=== PATIENT | female | born 1965 | race Two or more races ===

== ENCOUNTER 2020-01-09 16:26 | Outpatient (REF) | payer OTHER, SELFPAY ==
--- NOTE | 2020-01-09 | MM_ITS ---
EXAMINATION: MM SCREENING DIGITAL BREAST TOMOSYNTHESIS, BILATERAL CLINICAL INFORMATION: Screening. Asymptomatic. The lifetime risk of breast cancer based on the Tyrer-Cuzick Model is 5.6%. COMPARISON: Mammography: 07/27/2018 and multiple previous mammograms dated back to 06/04/2007. TECHNIQUE: Digital breast tomosynthesis is performed in both the craniocaudal and mediolateral oblique views along with computer-aided detection (CAD). Synthesized 2D images are generated from the tomosynthesis. FINDINGS: The breasts are heterogeneously dense, which may obscure small masses (ACR BI-RADS breast composition Category c). RIGHT BREAST: No suspicious masses, calcifications or other abnormalities are seen. Compared to last study, no significant interval change is noted. LEFT BREAST: Multiple regional punctate and milk of calcium calcifications in the anterior central breast are again noted; the calcifications appear to be decreased in number compared to multiple previous studies. There is a more focal grouping of milk of calcium calcifications in the upper outer quadrant anterior third; calcifications with similar morphology are seen on the multiple previous mammograms. Focal nodular asymmetry in the medial left breast, 4 cm from nipple is stable since previous studies. MM/MM tomosynthesis screening BI IMPRESSION: No mammographic evidence of malignancy. ASSESSMENT: BI-RADS 2: Benign. RECOMMENDATION: Routine annual mammography screening. This patient's information was entered into a reminder system with a target due date for their next mammogram.
== END 2020-01-09 16:27 | disposition home or self-care (01) ==
LOC: HO.MAMMO 16:26
PROVIDERS: PCP Internal Medicine; Visit Provider Internal Medicine
DX: Z12.31 Encounter for screening mammogram for malignant neoplasm of breast (principal)
CPT/HCPCS: 77063; 77067

== ENCOUNTER → 2020-01-15 20:23 | Outpatient (REF) | payer OTHER, SELFPAY | LOC: HO.SL 20:23 | PROVIDERS: Visit Provider Internal Medicine | DX: G47.33 Obstructive sleep apnea (adult) (pediatric) (principal) | CPT/HCPCS: 95810 ==

== ENCOUNTER 2020-01-18 17:49 | Emergency (ER) | payer OTHER, SELFPAY ==
[2020-01-18 18:01] VITALS: BP 114/63; PULSE 71; RESP 16; TEMP 36.9; O2SAT 99; BMI 25.6
[2020-01-18 19:04] VITALS: BP 120/63; PULSE 73; RESP 16; TEMP 37.1; O2SAT 100
--- NOTE | 2020-01-18 19:41 | ED_ITS ---
HPI - Skin/Abscess/Foreign Bdy General Chief complaint: Skin/Abscess/Foreign Body Stated complaint: christiana needle stick Time Seen by Provider: 01/18/20 19:40 Source: patient Mode of arrival: ambulatory Limitations: no limitations History of Present Illness HPI narrative: 54-year-old female below noted past medical history presenting with complaint of states she was cleaning rug at her [employer] and there was a christiana nail which kicked her in her right index finger. States there was slight blood from the nail puncture site but no pain or discomfort. There was no deeper Puncture. States she has not had a tetanus vaccine since she was a child and is the main reason she is here today. Onset (ago): minute(s) Tetanus up to date: no Context: none Associated symptoms: denies other symptoms Related Data Allergies Allergy/AdvReac Type Severity Reaction Status Date / Time No Known Allergies Allergy Unverified 11/24/19 15:32 [No Known Allergies*] Review of Systems Review of Systems: Constitutional: No Weight loss, No Fever, No Chills, No Night Sweats, No Fatigue, No Malaise ENT/Mouth: No Hearing loss, No Ear Pain, No Nasal Congestion Eyes: No Eye Pain, No Swelling, No Redness, No Foreign Body, No Discharge, No Vision Changes Cardiovascular: No Chest Pain, No SOB, No Dyspnea on Exertion, No Orthopnea, No Edema, No Palpitations Respiratory: No Cough, No Sputum, No Wheezing, No Smoke Exposure, No Dyspnea Musculoskeletal: No joint pain, No Myalgias, No Joint Swelling Skin: No Skin Lesions, No rash Neuro: No Weakness, No Numbness, No Paresthesias, No Loss of Consciousness, No Dizziness, No Headache Psych: No Anxiety/Panic Heme/Lymph: No Bruising, No Bleeding,No Lymphadenopathy Endocrine: No Polyuria, No Polydipsia, No Temperature Intolerance Yes all other systems are reviewed and are negative COUNT INCLUDES THE [facility] Past Medical History Attestation statement: The following information was validated with the patient. Social History Social History Smoking Status: Never smoker Use of substances other than those prescribed or required for medical reasons: No Advance Directives: No Advance Directives Information Provided: No Physical Exam Vital Signs: Vital Signs: Last Vital Signs Temp 98.7 F 01/18/20 19:04 Pulse 73 01/18/20 19:04 Resp 16 01/18/20 19:04 BP 120/63 11/11/20 19:04 Pulse Ox 100 01/18/20 19:04 Body Mass Index 25.6 Reviewed Const: General: cooperative and healthy appearing; No acute distress or intoxicated appearing Nutritional Appearance: average body habitus Orientation/consciousness: patient oriented x3 HENMT: Head: Yes normal to inspection Ears: hearing grossly normal bilaterally Chest: Chest palpation & inspection: normal inspection of the chest Resp: Effort & Inspection: normal respiratory effort Cardio: Jugular venous distension: no JVD Skin: General skin exam: no rashes or lesions noted Neuro: General: patient oriented x3 Extrem: Other: Right index finger at the fat pad there is a less than 0.5 mm area where there is some dry blood no tender palpation induration or erythema. General: Yes normal to inspection Course Course Course Narrative: Given tetanus vaccination Discharge Plan Discharge Clinical Impression: Puncture wound Patient Disposition: Home, Self-Care Instructions: Puncture Wound (ED) Referrals: Radha Sánchez MD [Primary Care Provider] - 2 weeks
--- NOTE | 2020-01-18 20:11 | PC.NURSE ---
small wound cleaned and baindaid given
== END 2020-01-18 20:12 | disposition home or self-care (01) ==
PROVIDERS: Emergency Provider Emergency Medicine Emergency Medical Services; PCP Internal Medicine
DX: S61.230A Puncture wound without foreign body of right index finger without damage to nail, initial encounter (principal); S60.410A Abrasion of right index finger, initial encounter; M79.644 Pain in right finger(s); Y28.9XXA Contact with unspecified sharp object, undetermined intent, initial encounter; Y93.9 Activity, unspecified; Y92.22 Religious institution as the place of occurrence of the external cause; Z23 Encounter for immunization
CPT/HCPCS: 90471; 90715; 99284

== ENCOUNTER 2020-01-30 11:18 | Outpatient (REF) | payer OTHER, SELFPAY | END 2020-01-30 11:19 | disposition home or self-care (01) | LOC: HO.LAB 11:18 | PROVIDERS: PCP Internal Medicine; Visit Provider Internal Medicine | DX: Z20.828 Contact with and (suspected) exposure to other viral communicable diseases (principal) | CPT/HCPCS: C9803; U0003 ==

== ENCOUNTER 2020-05-29 16:30 | Outpatient (REF) | payer OTHER, SELFPAY ==
--- NOTE | ~2020-05-29 | XR_ITS ---
EXAMINATION: PELVIS AND BILATERAL HIP X-RAY. LUMBAR SPINE X-RAY. CLINICAL INFORMATION: Pain COMPARISON: Lumbar spine x-ray October 2014 TECHNIQUE: 5 views of the lumbar spine including bilateral oblique views. One view of the pelvis and 2 views of each hip. FINDINGS: Lumbar spine: There is curvature of the lumbar sacral spine to the right. Bone alignment is otherwise normal. No fracture or dislocation is seen distally spaces are normal. There is lower lumbar spine facet arthritis. Pelvis and bilateral hips: Bone alignment is normal. No fracture or dislocation is seen. The hip joints are normal. The sacroiliac joints appear normal. There are postsurgical changes from left pelvic hernia repair with mesh. XR/XR hip BI w PEL1V IMPRESSION: Lumbar spine: Curvature of the lumbar sacral spine to the right and lower lumbar spine facet arthritis. Unremarkable pelvis and bilateral hips.
--- NOTE | ~2020-05-29 | XR_ITS ---
EXAMINATION: PELVIS AND BILATERAL HIP X-RAY. LUMBAR SPINE X-RAY. CLINICAL INFORMATION: Pain COMPARISON: Lumbar spine x-ray October 2014 TECHNIQUE: 5 views of the lumbar spine including bilateral oblique views. One view of the pelvis and 2 views of each hip. FINDINGS: Lumbar spine: There is curvature of the lumbar sacral spine to the right. Bone alignment is otherwise normal. No fracture or dislocation is seen distally spaces are normal. There is lower lumbar spine facet arthritis. Pelvis and bilateral hips: Bone alignment is normal. No fracture or dislocation is seen. The hip joints are normal. The sacroiliac joints appear normal. There are postsurgical changes from left pelvic hernia repair with mesh. XR/XR lumbar spine 4V min IMPRESSION: Lumbar spine: Curvature of the lumbar sacral spine to the right and lower lumbar spine facet arthritis. Unremarkable pelvis and bilateral hips.
== END 2020-05-29 16:31 | disposition home or self-care (01) ==
LOC: HO.XRAY 16:30
PROVIDERS: PCP Internal Medicine; Visit Provider Internal Medicine
DX: M25.551 Pain in right hip (principal); M25.552 Pain in left hip; M54.5 Low back pain
CPT/HCPCS: 72110; 73521

== ENCOUNTER 2020-10-08 15:05 | Outpatient (REF) | payer OTHER, SELFPAY ==
--- NOTE | ~2020-10-08 | XR_ITS ---
EXAMINATION: XR SACROILIAC JOINTS CLINICAL INFORMATION: Lumbago. COMPARISON: None TECHNIQUE: 3 views of the sacroiliac joints FINDINGS: There is normal symmetry of bilateral SI joints without sclerosis or lytic process. The disc heights are normal. Visualized bones are grossly unremarkable no visible acute fracture or dislocation seen. The hip joint space is maintained normal. There is a lower anterior abdominal wall hernia with mesh in place XR/XR sacroiliac joint 1-2V IMPRESSION: Unremarkable SI joint exam.
== END 2020-10-08 15:06 | disposition home or self-care (01) ==
LOC: HO.XRAY 15:05
PROVIDERS: PCP Internal Medicine; Visit Provider Physical Medicine & Rehabilitation
DX: M54.5 Low back pain (principal)
CPT/HCPCS: 72200

== ENCOUNTER 2020-12-04 12:19 | Outpatient (REF) | payer OTHER, SELFPAY ==
[2020-12-05 09:45] LABS: BV Int Neg Control Negative (Negative); BV Int Pos Control Positive (Positive)
== END 2020-12-04 12:20 | disposition home or self-care (01) ==
LOC: HO.LAB 12:19
PROVIDERS: Visit Provider Advanced Practice Midwife
DX: N89.8 Other specified noninflammatory disorders of vagina (principal); R30.0 Dysuria; N95.2 Postmenopausal atrophic vaginitis; N76.0 Acute vaginitis
CPT/HCPCS: 87480; 87510; 87660; 99202

== ENCOUNTER 2021-02-13 15:35 | Outpatient (REF) | payer OTHER, SELFPAY ==
--- NOTE | ~2021-02-13 | MM_ITS ---
EXAMINATION: MM SCREENING DIGITAL BREAST TOMOSYNTHESIS, BILATERAL CLINICAL INFORMATION: Screening. Asymptomatic. The lifetime risk of breast cancer based on the Tyrer-Cuzick Model is 4.7%. COMPARISON: Mammography: January 09, 2020 and studies dating back to March 18, 2011 TECHNIQUE: Digital breast tomosynthesis is performed in both the craniocaudal and mediolateral oblique views along with computer-aided detection (CAD). Synthesized 2D images are generated from the tomosynthesis. FINDINGS: The breasts are heterogeneously dense, which may obscure small masses (ACR BI-RADS breast composition Category c). There are no significant masses, abnormal calcifications, or other abnormalities. MM/MM tomosynthesis screening BI IMPRESSION: There are no significant changes from prior study. ASSESSMENT: BI-RADS 1: Negative RECOMMENDATION: Routine annual mammography screening. This patient's information was entered into a reminder system with a target due date for their next mammogram.
== END 2021-02-13 15:36 | disposition home or self-care (01) ==
LOC: HO.MAMMO 15:35
PROVIDERS: PCP Internal Medicine; Visit Provider Internal Medicine
DX: Z12.31 Encounter for screening mammogram for malignant neoplasm of breast (principal)
CPT/HCPCS: 77063; 77067

== ENCOUNTER 2021-06-10 15:00 | Outpatient (RCR) | payer OTHER, SELFPAY | END 2021-08-16 09:06 | disposition home or self-care (01) | LOC: HO.PT 15:00 | PROVIDERS: PCP Internal Medicine; Visit Provider Internal Medicine | DX: M54.50 Low back pain, unspecified (principal) | CPT/HCPCS: 97110; 97162; 97530 ==

== ENCOUNTER 2021-06-26 11:13 | Outpatient (REF) | payer OTHER, SELFPAY ==
--- NOTE | ~2021-06-26 | XR_ITS ---
EXAMINATION: XR LUMBOSACRAL SPINE WITH OBLIQUES CLINICAL INFORMATION: Pain. COMPARISON: 05/29/2020 TECHNIQUE: AP, both oblique, and lateral views of the lumbar spine. Lateral view of the lumbosacral junction. FINDINGS: Once again, scoliosis convex left apex at D12. In the lumbar spine, once again, there is loss of disc height. Vertebral heights are fairly well preserved. There is no listhesis or compression injury. The oblique imaging is showing no convincing evidence for spondylolysis. Findings suggest some early degenerative changes at L5-S1 in the posterior elements. XR/XR lumbar spine 4V min IMPRESSION: Once again, some mild degenerative changes and scoliosis noted. No acute finding. No listhesis or compression injury. No significant change from previous.
== END 2021-06-26 11:14 | disposition home or self-care (01) ==
LOC: HO.XRAY 11:13
PROVIDERS: PCP Internal Medicine; Visit Provider Internal Medicine
DX: M54.50 Low back pain, unspecified (principal)
CPT/HCPCS: 72110

== ENCOUNTER → 2021-08-13 11:27 | Outpatient (BNVA) | payer OTHER, SELFPAY | PROVIDERS: PCP Internal Medicine | DX: R39.15 Urgency of urination (principal) | CPT/HCPCS: 99202 ==

== ENCOUNTER 2022-02-27 10:59 | Outpatient (REF) | payer OTHER, SELFPAY | END 2022-02-27 11:00 | disposition home or self-care (01) | LOC: HO.MAMMO 10:59 | PROVIDERS: PCP Nurse Practitioner Family; Visit Provider Internal Medicine | DX: Z12.31 Encounter for screening mammogram for malignant neoplasm of breast (principal) | CPT/HCPCS: 77063; 77067 ==

== ENCOUNTER → 2022-03-06 09:43 | Outpatient (BNVA) | payer OTHER, SELFPAY | PROVIDERS: PCP Internal Medicine; Visit Provider Urology | DX: N32.81 Overactive bladder (principal); R39.15 Urgency of urination | CPT/HCPCS: 51798; 99212 ==

== ENCOUNTER 2022-06-16 10:52 | Outpatient (REF) | payer OTHER, SELFPAY ==
--- NOTE | ~2022-06-16 | US_ITS ---
EXAMINATION: US RETROPERITONEAL LIMITED (RENAL ONLY) CLINICAL INFORMATION: Frequency of micturition. COMPARISON: None available. TECHNIQUE: Real-time imaging of the kidneys. FINDINGS: RIGHT KIDNEY: 9.0 x 3.7 x 4.7 cm (SAG x AP x TRV). The kidney is normal in size, contour, and echogenicity. Renal cortical thickness is normal. No calculi or focal parenchymal lesions. No hydronephrosis. LEFT KIDNEY: 10.1 x 5.0 x 5.1 cm (SAG x AP x TRV). The kidney is normal in size, contour, and echogenicity. Renal cortical thickness is normal. No renal calculi. Likely benign benign renal cysts one with mural calcification measuring up to 0.8 cm, no follow-up imaging recommended. Prominence of the renal pelvis favored to reflect peripelvic renal cysts versus pelviectasis. US/US renal BI IMPRESSION: Prominence of the left renal pelvis favored to reflect a peripelvic renal cysts although the alternative would be renal pelviectasis. CT urogram could be confirmatory for differentiation if warranted.
== END 2022-06-16 10:53 | disposition home or self-care (01) ==
LOC: HO.US 10:52
PROVIDERS: PCP Internal Medicine; Visit Provider Urology
DX: R35.0 Frequency of micturition (principal)
CPT/HCPCS: 76775

== ENCOUNTER → 2022-07-02 10:42 | Outpatient (BNVA) | payer OTHER, SELFPAY | PROVIDERS: PCP Internal Medicine; Visit Provider Urology | DX: N32.81 Overactive bladder (principal); M54.50 Low back pain, unspecified | CPT/HCPCS: 99212 ==

== ENCOUNTER 2023-01-01 13:52 | Outpatient (AMB) | payer OTHER, SELFPAY ==
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
[2023-01-01 13:59] VITALS: BP 117/70; PULSE 80; BMI 23.9
== END 2023-01-01 15:05 | disposition home or self-care (01) ==
PROVIDERS: PCP Internal Medicine; Visit Provider Nurse Practitioner
DX: K21.9 Gastro-esophageal reflux disease without esophagitis (principal); R14.0 Abdominal distension (gaseous)
CPT/HCPCS: 99203

== ENCOUNTER 2023-01-01 13:52 | Outpatient (REF) | payer OTHER, SELFPAY ==
[2023-01-03 13:22] LABS: H Pylori Breath Test Positive (Negative)
== END 2023-01-01 13:53 | disposition home or self-care (01) ==
LOC: HO.LNP 13:52
PROVIDERS: PCP Internal Medicine; Visit Provider Nurse Practitioner
DX: K21.9 Gastro-esophageal reflux disease without esophagitis (principal); R14.0 Abdominal distension (gaseous)
CPT/HCPCS: 83013; 99202

== ENCOUNTER 2023-01-09 13:32 | Outpatient (REF) | payer OTHER, SELFPAY ==
[2023-01-09 13:51] LABS: MANUAL DIFF FLAG NO
[2023-01-09 14:03] LABS: Basophils Absolute Auto 0.1 X10*3/uL (0.0-0.2); Basophils Percent Auto 0.5 % (0-2); Eosinophils Absolute Auto 0.2 X10*3/uL (0.0-0.4); Eosinophils Percent Auto 1.9 % (0-4); Hematocrit 38.1 % (37.0-47.0); Hemoglobin 12.7 g/dl (12.0-16.0); Imm Gran Abs Auto 0.04 X10*3/uL (0.00-0.03); Imm Gran Pct Auto 0.4 % (0.0-0.4); Lymphocytes Absolute Auto 2.1 X10*3/uL (1.2-4.9); Lymphocytes Percent Auto 22.4 % (20-40); Mean Corpuscular HGB Conc 33.3 g/dl (31.0-35.0); Mean Corpuscular Hemoglobin 27.6 pg (27.0-33.0); Mean Corpuscular Volume 82.8 fL (80.0-98.0); Mean Platelet Volume 12.4 fL (9.4-12.3); Monocytes Absolute Auto 0.5 X10*3/uL (0.1-1.2); Monocytes Percent Auto 5.9 % (2-11); Neutrophils Absolute Auto 6.3 x10*3/uL (2.0-8.3); Neutrophils Percent Auto 68.9 % (45-73); Platelet Count 262 X10*3/uL (160-400); Red Cell Distribution Width 13.6 % (11.0-16.0); White Blood Count 9.2 X10*3/uL (4.8-10.8)
[2023-01-09 14:48] LABS: Alanine Aminotransferase 18 U/L (0-31); Albumin Level 3.7 g/dL (3.5-5.0); Alkaline Phosphatase 87 U/L (39-117); Anion Gap 10 (12-20); Aspartate Amino Transferase 36 U/L (5-31); Bilirubin Total 0.3 mg/dL (0.0-1.0); Blood Urea Nitrogen 10 mg/dL (9-16); Calcium 8.9 mg/dL (8.4-10.2); Carbon Dioxide 27 mmol/L (22-29); Chloride 107 mmol/L (96-108); Estimated Glomerular Filt Rate > 60; Glucose Random 137 mg/dL (60-115); Potassium 3.9 mmol/L (3.3-5.1); Sodium 140 mmol/L (135-145); Total Protein 6.5 g/dL (6.5-8.0)
[2023-01-09 14:56] LABS: TSH reflex Free T4 1.84 uIU/mL (0.32-4.0)
== END 2023-01-09 13:33 | disposition home or self-care (01) ==
LOC: HO.LAB 13:32
PROVIDERS: PCP Internal Medicine; Visit Provider Nurse Practitioner
DX: K21.9 Gastro-esophageal reflux disease without esophagitis (principal); R14.0 Abdominal distension (gaseous)
CPT/HCPCS: 36415; 80053; 84443; 85025

== ENCOUNTER 2023-01-10 20:02 | Emergency (ER) | payer OTHER, SELFPAY ==
[2023-01-10 20:24] VITALS: BP 139/76; PULSE 71; RESP 18; TEMP 36.9; O2SAT 99; BMI 24.0
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
[2023-01-10 22:10] VITALS: BP 132/73; PULSE 60; RESP 18; TEMP 36.6; O2SAT 98
--- NOTE | 2023-01-10 22:10 | MHC.EDTECH ---
Patient changed into hospital attire,vitals completed.Unable to give urine sample at this time, patient instructed to ring pierre when she is able to go. Call pierre within reach
[2023-01-10 22:15] LABS: MANUAL DIFF FLAG NO
[2023-01-10 22:17] LABS: Basophils Percent Auto 0.6 % (0-2); Eosinophils Absolute Auto 0.1 X10*3/uL (0.0-0.4); Eosinophils Percent Auto 0.7 % (0-4); Hematocrit 39.2 % (37.0-47.0); Hemoglobin 12.7 g/dl (12.0-16.0); Imm Gran Abs Auto 0.02 X10*3/uL (0.00-0.03); Imm Gran Pct Auto 0.3 % (0.0-0.4); Lymphocytes Absolute Auto 1.4 X10*3/uL (1.2-4.9); Mean Corpuscular HGB Conc 32.4 g/dl (31.0-35.0); Mean Corpuscular Hemoglobin 26.1 pg (27.0-33.0); Mean Corpuscular Volume 80.7 fL (80.0-98.0); Mean Platelet Volume 11.8 fL (9.4-12.3); Monocytes Absolute Auto 0.6 X10*3/uL (0.1-1.2); Monocytes Percent Auto 8.3 % (2-11); Neutrophils Absolute Auto 5.1 x10*3/uL (2.0-8.3); Neutrophils Percent Auto 70.1 % (45-73); Platelet Count 265 X10*3/uL (160-400); Red Blood Count 4.86 X10*6/uL (4.20-5.50); Red Cell Distribution Width 13.3 % (11.0-16.0); White Blood Count 7.2 X10*3/uL (4.8-10.8)
[2023-01-10 22:30] LABS: Alanine Aminotransferase 18 U/L (0-31); Albumin Level 3.8 g/dL (3.5-5.0); Alkaline Phosphatase 88 U/L (39-117); Anion Gap 13 (12-20); Aspartate Amino Transferase 35 U/L (5-31); Bilirubin Total 0.3 mg/dL (0.0-1.0); Blood Urea Nitrogen 11 mg/dL (9-16); Calcium 8.9 mg/dL (8.4-10.2); Carbon Dioxide 27 mmol/L (22-29); Chloride 106 mmol/L (96-108); Creatinine Clr Calc Pharmacy 50.9; Estimated Glomerular Filt Rate > 60; Glucose Random 102 mg/dL (60-115); Lipase 12 U/L (8-78); Potassium 3.5 mmol/L (3.3-5.1); Sodium 142 mmol/L (135-145); Total Protein 6.6 g/dL (6.5-8.0)
[2023-01-10 22:42] LABS: Appearance Urine Clear; Color Urine Yellow; Glucose Urine UA Negative (Negative); Leukocyte Esterase Urine Small (1+) (Negative); Nitrite Urine Negative (Negative); PH 5.5 (5.0-9.0); UMIC TRIGGER UACC YES; Urine Blood Negative (Negative); Urine Ketones 15 mg/dL (Negative); Urine Protein Negative (Neg-Trace)
[2023-01-10] MEDS: Ondansetron ODT 4 MG TAB.RAPDIS TRANSLINGU (22:43)
[2023-01-10] MEDS: Dicyclomine HCl 10 MG CAPSULE 20 MG PO (22:43)
[2023-01-10] MEDS: Butalb/Acetamin/Caff 50/325/40 TABLET 1 TAB PO (22:43)
[2023-01-10 22:49] LABS: Bacteria Urine None Seen (None Seen); Hyaline Casts Urine 0-2 /LPF (0-2); RBC Urine 0-2 /HPF (0-2); Squamous Epithelial Cell Urine 0-2 /HPF (0-2); UACC Culture Trigger YES; WBC Urine 0-5 /HPF (0-5)
[2023-01-11 00:28] VITALS: BP 107/57; PULSE 54; RESP 18; TEMP 36.5; O2SAT 97
== END 2023-01-11 00:40 | disposition home or self-care (01) ==
PROVIDERS: Emergency Provider Internal Medicine; PCP Internal Medicine
DX: K21.9 Gastro-esophageal reflux disease without esophagitis (principal); R10.9 Unspecified abdominal pain; R51.9 Headache, unspecified; G31.84 Mild cognitive impairment of uncertain or unknown etiology; Z87.820 Personal history of traumatic brain injury; Z97.0 Presence of artificial eye
CPT/HCPCS: 36415; 80053; 81001; 83690; 85025; 87086; 99283; 99284

== ENCOUNTER 2023-01-16 13:48 | Outpatient (AMB) | payer OTHER, SELFPAY ==
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
[2023-01-16 13:55] VITALS: BP 126/114; PULSE 66; BMI 23.4
== END 2023-01-16 14:49 | disposition home or self-care (01) ==
PROVIDERS: PCP Internal Medicine; Visit Provider Nurse Practitioner
DX: K29.80 Duodenitis without bleeding (principal); B96.81 Helicobacter pylori [H. pylori] as the cause of diseases classified elsewhere; K21.9 Gastro-esophageal reflux disease without esophagitis; B37.81 Candidal esophagitis; R41.3 Other amnesia
CPT/HCPCS: 99214

== ENCOUNTER → 2023-01-16 13:48 | Outpatient (BNVA) | payer OTHER, SELFPAY | PROVIDERS: PCP Internal Medicine; Visit Provider Nurse Practitioner | DX: K29.80 Duodenitis without bleeding (principal); B96.81 Helicobacter pylori [H. pylori] as the cause of diseases classified elsewhere; K21.9 Gastro-esophageal reflux disease without esophagitis; R14.0 Abdominal distension (gaseous); G31.84 Mild cognitive impairment of uncertain or unknown etiology; B37.81 Candidal esophagitis; B37.0 Candidal stomatitis; Z87.820 Personal history of traumatic brain injury | CPT/HCPCS: 99212 ==

== ENCOUNTER 2023-02-02 08:59 | Outpatient (REF) | payer OTHER, SELFPAY ==
--- NOTE | ~2023-02-02 | US_ITS ---
EXAMINATION: US ABDOMEN COMPLETE CLINICAL INFORMATION: Gastroesophageal reflux disease without esophagitis. COMPARISON: Renal ultrasound 06/16/2022. TECHNIQUE: Real-time imaging of the abdominal viscera. Limited visualization due to bowel gas. FINDINGS: PANCREAS: Limited visualization of pancreatic tail and head. Imaged portion of pancreatic body is unremarkable. ABDOMINAL AORTA: Nonaneurysmal. INFERIOR VENA CAVA: Visualized portions are normal. LIVER: Unremarkable. GALLBLADDER: No gallstones. No gallbladder wall thickening. COMMON BILE DUCT: Normal in caliber measuring 0.4 cm in diameter. RIGHT KIDNEY: No hydronephrosis. No renal calculi. Limited visualization. The kidney measures 9.2 cm in maximum dimension. LEFT KIDNEY: Mild left hydronephrosis. Left renal upper pole 1.3 x 1.2 x 1.4 cm cyst with benign features for which there is no indication for follow-up imaging, with adjacent 0.7 x 0.4 x 0.5 cm echogenic focus characteristic of a calcification. Ultrasound of 06/16/2022 demonstrated a 0.8 cm upper pole cyst with adjacent 0.5 cm calcification. Limited visualization. The kidney measures 10.1 cm in maximum dimension. SPLEEN: Normal. The spleen measures 7.1 cm in maximum dimension. FREE FLUID: None. US/US abdomen complete IMPRESSION: 1. Mild left hydronephrosis. 2. Left renal upper pole 1.3 x 1.2 x 1.4 cm cyst with benign features for which there is no indication for follow-up imaging, with adjacent 0.7 x 0.4 x 0.5 cm echogenic focus characteristic of a calcification. Ultrasound of 06/16/2022 demonstrated a 0.8 cm upper pole cyst with adjacent 0.5 cm calcification.
== END 2023-02-02 09:00 | disposition home or self-care (01) ==
LOC: HO.US 08:59
PROVIDERS: PCP Internal Medicine; Visit Provider Nurse Practitioner
DX: K21.9 Gastro-esophageal reflux disease without esophagitis (principal); R14.0 Abdominal distension (gaseous)
CPT/HCPCS: 76700

== ENCOUNTER 2023-02-04 11:03 | Outpatient (AMB) | payer OTHER, SELFPAY ==
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
[2023-02-04 11:27] VITALS: BP 101/59; PULSE 68; BMI 22.9
== END 2023-02-04 12:39 | disposition home or self-care (01) ==
PROVIDERS: PCP Internal Medicine; Visit Provider Nurse Practitioner
DX: K21.9 Gastro-esophageal reflux disease without esophagitis (principal); R14.0 Abdominal distension (gaseous); K29.80 Duodenitis without bleeding; B96.81 Helicobacter pylori [H. pylori] as the cause of diseases classified elsewhere; G31.84 Mild cognitive impairment of uncertain or unknown etiology; R30.0 Dysuria
CPT/HCPCS: 99213

== ENCOUNTER → 2023-02-04 11:03 | Outpatient (BNVA) | payer OTHER, SELFPAY | PROVIDERS: PCP Internal Medicine; Visit Provider Nurse Practitioner | DX: K21.9 Gastro-esophageal reflux disease without esophagitis (principal); B96.81 Helicobacter pylori [H. pylori] as the cause of diseases classified elsewhere; K29.80 Duodenitis without bleeding; G31.84 Mild cognitive impairment of uncertain or unknown etiology; R14.0 Abdominal distension (gaseous); R30.0 Dysuria | CPT/HCPCS: 99212 ==

== ENCOUNTER 2023-02-20 12:07 | Outpatient (AMB) | payer OTHER, SELFPAY ==
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
[2023-02-20 12:38] VITALS: BP 122/54; PULSE 74; BMI 24.4
== END 2023-02-20 13:52 | disposition home or self-care (01) ==
PROVIDERS: PCP Internal Medicine; Visit Provider Nurse Practitioner
DX: K29.80 Duodenitis without bleeding (principal); B96.81 Helicobacter pylori [H. pylori] as the cause of diseases classified elsewhere; R30.0 Dysuria; K21.9 Gastro-esophageal reflux disease without esophagitis; R14.0 Abdominal distension (gaseous)
CPT/HCPCS: 99213

== ENCOUNTER → 2023-02-20 12:07 | Outpatient (BNVA) | payer OTHER, SELFPAY | PROVIDERS: PCP Internal Medicine; Visit Provider Nurse Practitioner | DX: K29.80 Duodenitis without bleeding (principal); K21.9 Gastro-esophageal reflux disease without esophagitis; R30.0 Dysuria; R14.0 Abdominal distension (gaseous); B96.81 Helicobacter pylori [H. pylori] as the cause of diseases classified elsewhere | CPT/HCPCS: 99212 ==

== ENCOUNTER 2023-02-26 14:32 | Outpatient (REF) | payer OTHER, SELFPAY ==
[2023-02-27 13:23] LABS: H Pylori Breath Test Negative (Negative)
== END 2023-02-26 14:33 | disposition home or self-care (01) ==
LOC: HO.LNP 14:32
PROVIDERS: Visit Provider Nurse Practitioner
DX: Z11.2 Encounter for screening for other bacterial diseases (principal); B96.81 Helicobacter pylori [H. pylori] as the cause of diseases classified elsewhere; K29.80 Duodenitis without bleeding
CPT/HCPCS: 83013

== ENCOUNTER 2023-03-05 11:23 | Outpatient (REF) | payer OTHER, SELFPAY ==
--- NOTE | ~2023-03-05 | MM_ITS ---
EXAMINATION: MM SCREENING DIGITAL BREAST TOMOSYNTHESIS, BILATERAL CLINICAL INFORMATION: Screening. Asymptomatic. COMPARISON: Mammography: This study is compared with prior exams dating back to 2019. TECHNIQUE: Digital breast tomosynthesis is performed in both the craniocaudal and mediolateral oblique views along with computer-aided detection (CAD). Synthesized 2D images are generated from the tomosynthesis. FINDINGS: The breasts are heterogeneously dense, which may obscure small masses (ACR BI-RADS breast composition Category c). There are no significant masses, abnormal calcifications, or other abnormalities. There are bilateral, benign calcifications. MM/MM tomosynthesis screening BI IMPRESSION: No mammographic evidence of malignancy. ASSESSMENT: BI-RADS BI-RADS 2 - Benign Findings RECOMMENDATION: Routine annual mammography screening. 1 year F/U This examination should not preclude the clinical evaluation of a suspicious palpable abnormality. This patient's information was entered into a reminder system with a target due date for their next mammogram.
== END 2023-03-05 11:24 | disposition home or self-care (01) ==
LOC: HO.MAMMO 11:23
PROVIDERS: PCP Internal Medicine; Visit Provider Nurse Practitioner Family
DX: Z12.31 Encounter for screening mammogram for malignant neoplasm of breast (principal)
CPT/HCPCS: 77063; 77067

== ENCOUNTER → 2023-03-05 11:30 | Outpatient (BNV) | payer OTHER, SELFPAY | PROVIDERS: PCP Internal Medicine; Visit Provider Radiology Diagnostic Radiology | DX: Z12.31 Encounter for screening mammogram for malignant neoplasm of breast (principal) | CPT/HCPCS: 77063; 77067 ==

== ENCOUNTER 2023-03-30 10:54 | Outpatient (REF) | payer OTHER, SELFPAY | END 2023-03-30 10:55 | disposition home or self-care (01) | LOC: HO.LAB 10:54 | PROVIDERS: Visit Provider Urology | DX: N39.0 Urinary tract infection, site not specified (principal); N32.81 Overactive bladder; R32 Unspecified urinary incontinence | CPT/HCPCS: 51798; 81003; 87086; 99212 ==

== ENCOUNTER 2023-03-30 10:54 | Outpatient (AMB) | payer OTHER, SELFPAY ==
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
== END 2023-03-30 11:43 | disposition home or self-care (01) ==
PROVIDERS: PCP Internal Medicine; Visit Provider Urology
DX: N32.81 Overactive bladder (principal); R32 Unspecified urinary incontinence
CPT/HCPCS: 99214

== ENCOUNTER 2023-04-15 15:29 | Emergency (ER) | payer OTHER, SELFPAY ==
[2023-04-15 16:41] VITALS: BP 126/55; PULSE 61; RESP 18; TEMP 36; O2SAT 100; BMI 23.8
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
== END 2023-04-15 16:50 | disposition home or self-care (01) ==
PROVIDERS: Emergency Provider Emergency Medicine; PCP Internal Medicine
DX: S60.410A Abrasion of right index finger, initial encounter (principal); W20.8XXA Other cause of strike by thrown, projected or falling object, initial encounter; Y93.89 Activity, other specified; Y92.59 Other trade areas as the place of occurrence of the external cause; Y99.0 Civilian activity done for income or pay
CPT/HCPCS: 99282; 99283

== ENCOUNTER → 2023-07-07 14:55 | Outpatient (BNVA) | payer OTHER, SELFPAY | PROVIDERS: PCP Internal Medicine; Visit Provider Nurse Practitioner ==

== ENCOUNTER 2023-07-09 07:39 | Day surgery (SDC) | payer OTHER, SELFPAY ==
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
[2023-07-09 09:17] VITALS: BMI 24.6
[2023-07-09 09:20] VITALS: BP 138/66; PULSE 65; RESP 16; TEMP 36.3; O2SAT 98
[2023-07-09] MEDS: Lactated Ringers 1,000 ML 80 ML IVCONT (09:30)
--- NOTE | 2023-07-09 09:50 | P.OP_ITS ---
Operative Note Operative Note Date of Service: 07/09/23 Narrative: Procedure: Colonoscopy Indication: Screening Endoscopist: Ayleen Rudd MD Anesthesia Provider: Amy Raya CRNA Anesthesia type: MAC Instrument: Olympus [id number]-H190L Consent: Indication, risks vs benefits, and alternatives were discussed with the patient who gave written informed consent to proceed. EKG, pulse, pulse oximetry and blood pressure were monitored throughout the procedure. Please see anesthesia flowsheet. Procedure: The patient was brought to the procedure room and placed in the left lateral decubitus position. IV medications were administered by the anesthesia provider in attendance. A digital rectal exam was performed which was normal. A distal attachment cap was affixed to the tip of the scope and the colonoscope was then inserted through the anus and advanced through the colon to the cecum at 75 cm,and terminal ileum. Ileocecal valve and appendiceal orifice were identified. Mucosa was carefully examined under high definition white light as the instrument was slowly withdrawn in a retrograde panoramic fashion. Retroflexion was performed in rectum. The procedure was not difficult. There were no immediate obvious complications. The quality of the prep was BBPS: 2+2+2 = adequate Withdrawal time 11 minutes. Limitations: No limitations. Findings: Mucosa: Normal to cecum and terminal ileum. Protruding lesions: * Medium internal hemorrhoids without stigmata of recent bleeding. Impression: 1. Normal colon and terminal ileum mucosa 2. Internal hemorrhoids Recommendations: - repeat colonoscopy for asymptomatic colorectal cancer screening recommended in 10 years
[2023-07-09 10:21] VITALS: BP 90/50; PULSE 73; RESP 16; TEMP 36.1; O2SAT 99
[2023-07-09 10:36] VITALS: BP 99/65; PULSE 61; RESP 18; TEMP 36.1; O2SAT 98
== END 2023-07-09 11:15 | disposition home or self-care (01) ==
PROVIDERS: PCP Internal Medicine; Visit Provider Internal Medicine
PROC: 0DJD8ZZ Inspection of Lower Intestinal Tract, Via Natural or Artificial Opening Endoscopic (ICD-10-PCS; CPT 45378; principal; 2023-07-09 10:50)
DX: Z12.11 Encounter for screening for malignant neoplasm of colon (principal); K64.8 Other hemorrhoids; G40.909 Epilepsy, unspecified, not intractable, without status epilepticus; Z87.820 Personal history of traumatic brain injury
CPT/HCPCS: G0121; J2704

== ENCOUNTER → 2023-07-09 07:39 | Outpatient (BNV) | payer OTHER, SELFPAY | PROVIDERS: PCP Internal Medicine; Visit Provider Internal Medicine | DX: Z12.11 Encounter for screening for malignant neoplasm of colon (principal); K64.8 Other hemorrhoids | CPT/HCPCS: G0121 ==

== ENCOUNTER → 2023-07-23 15:52 | Outpatient (BNVA) | payer OTHER, SELFPAY | PROVIDERS: PCP Internal Medicine; Visit Provider Nurse Practitioner | DX: K21.9 Gastro-esophageal reflux disease without esophagitis (principal); G31.84 Mild cognitive impairment of uncertain or unknown etiology; S06.9X9A Unspecified intracranial injury with loss of consciousness of unspecified duration, initial encounter; R10.13 Epigastric pain | CPT/HCPCS: 99212 ==

== ENCOUNTER 2023-07-30 13:57 | Outpatient (REF) | payer OTHER, SELFPAY ==
--- NOTE | ~2023-07-30 | XR_ITS ---
EXAMINATION: BILATERAL KNEE SERIES CLINICAL INFORMATION: Chronic pain of both knees. Fall. COMPARISON: None. TECHNIQUE: Four views of each knee. FINDINGS: Right knee: The bones, joints and soft tissues are normal without effusion. Left knee: Bones, joints and soft tissues are normal without effusion. XR/XR knee RT 4V IMPRESSION: Normal x-ray series of the right and left knees.
--- NOTE | ~2023-07-30 | XR_ITS ---
EXAMINATION: BILATERAL KNEE SERIES CLINICAL INFORMATION: Chronic pain of both knees. Fall. COMPARISON: None. TECHNIQUE: Four views of each knee. FINDINGS: Right knee: The bones, joints and soft tissues are normal without effusion. Left knee: Bones, joints and soft tissues are normal without effusion. XR/XR knee LT 4V IMPRESSION: Normal x-ray series of the right and left knees.
== END 2023-07-30 13:58 | disposition home or self-care (01) ==
LOC: HO.HHCX 13:57
PROVIDERS: Visit Provider Internal Medicine
DX: M25.561 Pain in right knee (principal); M25.562 Pain in left knee; G89.29 Other chronic pain
CPT/HCPCS: 73564

== ENCOUNTER 2023-07-31 14:02 | Outpatient (REF) | payer OTHER, SELFPAY ==
[2023-07-31 16:10] LABS: MANUAL DIFF FLAG NO
[2023-07-31 16:31] LABS: Basophils Percent Auto 0.6 % (0-2); Eosinophils Absolute Auto 0.2 X10*3/uL (0.0-0.4); Eosinophils Percent Auto 3.2 % (0-4); Hematocrit 38.9 % (37.0-47.0); Hemoglobin 12.9 g/dl (12.0-16.0); Imm Gran Abs Auto 0.01 X10*3/uL (0.00-0.03); Imm Gran Pct Auto 0.1 % (0.0-0.4); Lymphocytes Percent Auto 28.9 % (20-40); Mean Corpuscular HGB Conc 33.2 g/dl (31.0-35.0); Mean Corpuscular Hemoglobin 27.2 pg (27.0-33.0); Mean Corpuscular Volume 81.9 fL (80.0-98.0); Mean Platelet Volume 12.9 fL (9.4-12.3); Monocytes Absolute Auto 0.5 X10*3/uL (0.1-1.2); Neutrophils Absolute Auto 4.1 x10*3/uL (2.0-8.3); Neutrophils Percent Auto 60.2 % (45-73); Platelet Count 244 X10*3/uL (160-400); Red Blood Count 4.75 X10*6/uL (4.20-5.50); Red Cell Distribution Width 13.2 % (11.0-16.0); White Blood Count 6.8 X10*3/uL (4.8-10.8)
[2023-07-31 16:44] LABS: Alanine Aminotransferase 14 U/L (0-31); Alkaline Phosphatase 88 U/L (39-117); Anion Gap 11 (12-20); Aspartate Amino Transferase 24 U/L (5-31); Bilirubin Direct 0.2 mg/dL (0.0-0.5); Bilirubin Total 0.5 mg/dL (0.0-1.0); Blood Urea Nitrogen 10 mg/dL (9-16); Calcium 9.2 mg/dL (8.4-10.2); Carbon Dioxide 26 mmol/L (22-29); Chloride 109 mmol/L (96-108); Cholesterol 193 mg/dL (<200); Estimated Glomerular Filt Rate > 60; Glucose Random 86 mg/dL (60-115); HDL Cholesterol 43 mg/dL (>40); LDL Cholesterol Calculated 135 mg/dL (<100); Potassium 3.9 mmol/L (3.3-5.1); Sodium 142 mmol/L (135-145); Triglycerides 79 mg/dL (<150)
[2023-07-31 16:45] LABS: Estimated Average Glucose 108 mg/dL; Hemoglobin A1c % 5.4 % (<6.0)
[2023-08-01 05:00] LABS: ~HepC Num1 0.24 S/CO (0.00-0.79); ~Hepatitis C Antibody Nonreactive (Nonreactive)
== END 2023-07-31 14:03 | disposition home or self-care (01) ==
LOC: HO.HHCL 14:02
PROVIDERS: Visit Provider Internal Medicine
DX: Z00.00 Encounter for general adult medical examination without abnormal findings (principal); Z13.6 Encounter for screening for cardiovascular disorders
CPT/HCPCS: 36415; 80048; 80061; 80076; 82306; 83036; 85025; 86803

== ENCOUNTER 2023-09-04 14:37 | Outpatient (AMB) | payer OTHER, SELFPAY ==
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
[2023-09-04 14:42] VITALS: BP 116/64; PULSE 62; O2SAT 98; BMI 24.3
== END 2023-09-04 15:18 | disposition home or self-care (01) ==
PROVIDERS: PCP Internal Medicine; Visit Provider Nurse Practitioner
DX: B37.9 Candidiasis, unspecified (principal)
CPT/HCPCS: 99213

== ENCOUNTER → 2023-09-04 14:37 | Outpatient (BNVA) | payer OTHER, SELFPAY | PROVIDERS: PCP Internal Medicine; Visit Provider Nurse Practitioner | DX: B37.9 Candidiasis, unspecified (principal) | CPT/HCPCS: 99212 ==

== ENCOUNTER 2023-09-15 10:45 | Outpatient (AMB) | payer OTHER, SELFPAY ==
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
[2023-09-15 10:52] VITALS: BP 127/61; PULSE 62; O2SAT 97; BMI 23.8
== END 2023-09-15 11:18 | disposition home or self-care (01) ==
PROVIDERS: PCP Internal Medicine; Referring Provider Nurse Practitioner; Visit Provider Nurse Practitioner Family
DX: M25.561 Pain in right knee (principal); M25.562 Pain in left knee; Z74.09 Other reduced mobility; M47.816 Spondylosis without myelopathy or radiculopathy, lumbar region; R29.6 Repeated falls
CPT/HCPCS: 99204

== ENCOUNTER → 2023-09-15 10:45 | Outpatient (BNVA) | payer OTHER, SELFPAY | PROVIDERS: PCP Internal Medicine; Referring Provider Nurse Practitioner; Visit Provider Nurse Practitioner Family | DX: M25.561 Pain in right knee (principal); M25.562 Pain in left knee; M47.816 Spondylosis without myelopathy or radiculopathy, lumbar region; R29.6 Repeated falls; Z74.09 Other reduced mobility | CPT/HCPCS: 99202 ==

== ENCOUNTER 2023-10-12 14:10 | Outpatient (AMB) | payer OTHER, SELFPAY ==
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
== END 2023-10-12 15:23 | disposition home or self-care (01) ==
PROVIDERS: PCP Internal Medicine; Visit Provider Urology
DX: N32.81 Overactive bladder (principal); R32 Unspecified urinary incontinence; N39.0 Urinary tract infection, site not specified
CPT/HCPCS: 99214

== ENCOUNTER → 2023-10-12 14:10 | Outpatient (BNVA) | payer OTHER, SELFPAY | PROVIDERS: PCP Internal Medicine; Visit Provider Urology | DX: N39.41 Urge incontinence (principal); R35.1 Nocturia; Z79.899 Other long term (current) drug therapy | CPT/HCPCS: 51798; 81003; 99212 ==

== ENCOUNTER 2023-10-21 16:13 | Outpatient (REF) | payer OTHER, SELFPAY ==
[2023-10-23 17:53] LABS: HPV mRNA E6/E7 Not Detected (Not Detected)
== END 2023-10-21 16:14 | disposition home or self-care (01) ==
LOC: HO.HHCLNP 16:13
PROVIDERS: Visit Provider Internal Medicine
DX: Z12.4 Encounter for screening for malignant neoplasm of cervix (principal)
CPT/HCPCS: 36415; 87624; 88175

== ENCOUNTER 2023-11-24 11:00 | Outpatient (RCR) | payer OTHER, SELFPAY ==
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
--- NOTE | 2023-11-24 12:57 | MHC.PT.DC ---
[facility] [place] Office [place] Office [place] Office [address] Henri Mcginnis [address] [facility] [phone] F: [phone] F: [phone] F: [phone] F: [phone] Physical Therapy Discharge Report Diagnosis: B knee pain Date of Surgery: Date of Evaluation: 10/20/23 Date of Discharge: 11/24/23 Treatments to Date: 6 Cancellations to Date: No Shows to Date: Discharge Status: Achieved Goals Improved Function Independent with HEP Discharge Summary: Alicia has been an active participant in her therapy with good home program compliance. We are in agreement with DC today as she has met all of her therapeutic goals, is managed of her initial symptoms, and she is independent with her home program for self management. Electronically signed by: Please sign and return to therapist. Thank you for your referral.
== END 2023-11-24 11:54 | disposition home or self-care (01) ==
LOC: HO.PT 11:00
PROVIDERS: PCP Internal Medicine; Visit Provider Nurse Practitioner Family
DX: M25.561 Pain in right knee (principal); M25.562 Pain in left knee; Z74.09 Other reduced mobility
CPT/HCPCS: 97110; 97112; 97161

== ENCOUNTER 2023-12-03 12:24 | Outpatient (AMB) | payer OTHER, SELFPAY ==
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
[2023-12-03 12:38] VITALS: BP 90/53; BMI 24.2
== END 2023-12-03 13:54 | disposition home or self-care (01) ==
PROVIDERS: PCP Internal Medicine; Visit Provider Nurse Practitioner
DX: B37.9 Candidiasis, unspecified (principal); R14.0 Abdominal distension (gaseous); K21.9 Gastro-esophageal reflux disease without esophagitis
CPT/HCPCS: 99213

== ENCOUNTER → 2023-12-03 12:24 | Outpatient (BNVA) | payer OTHER, SELFPAY | PROVIDERS: PCP Internal Medicine; Visit Provider Nurse Practitioner | DX: K21.9 Gastro-esophageal reflux disease without esophagitis (principal); R14.0 Abdominal distension (gaseous); B37.9 Candidiasis, unspecified | CPT/HCPCS: 99212 ==

== ENCOUNTER 2023-12-07 14:29 | Outpatient (REF) | payer OTHER, SELFPAY ==
[2023-12-07 16:38] LABS: MANUAL DIFF FLAG NO
[2023-12-07 16:56] LABS: Basophils Absolute Auto 0.1 X10*3/uL (0.0-0.2); Basophils Percent Auto 0.5 % (0-2); Eosinophils Absolute Auto 0.3 X10*3/uL (0.0-0.4); Eosinophils Percent Auto 3.2 % (0-4); Hematocrit 38.2 % (37.0-47.0); Hemoglobin 12.6 g/dl (12.0-16.0); Imm Gran Abs Auto 0.02 X10*3/uL (0.00-0.03); Imm Gran Pct Auto 0.2 % (0.0-0.4); Lymphocytes Absolute Auto 2.1 X10*3/uL (1.2-4.9); Lymphocytes Percent Auto 21.9 % (20-40); Mean Corpuscular Volume 81.8 fL (80.0-98.0); Mean Platelet Volume 13.2 fL (9.4-12.3); Monocytes Absolute Auto 0.6 X10*3/uL (0.1-1.2); Monocytes Percent Auto 6.5 % (2-11); Neutrophils Absolute Auto 6.5 x10*3/uL (2.0-8.3); Neutrophils Percent Auto 67.7 % (45-73); Platelet Count 226 X10*3/uL (160-400); Red Blood Count 4.67 X10*6/uL (4.20-5.50); Red Cell Distribution Width 13.4 % (11.0-16.0); White Blood Count 9.6 X10*3/uL (4.8-10.8)
== END 2023-12-07 14:30 | disposition home or self-care (01) ==
LOC: HO.HHCL 14:29
PROVIDERS: Visit Provider Student in an Organized Health Care Education/Training Program
DX: R19.5 Other fecal abnormalities (principal)
CPT/HCPCS: 36415; 85025

== ENCOUNTER 2024-01-28 07:56 | Day surgery (SDC) | payer OTHER, SELFPAY ==
[2024-01-26 09:34] VITALS: BMI 24.1
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
[2024-01-28 08:19] VITALS: BMI 24.0
[2024-01-28 08:36] VITALS: BP 113/65; PULSE 62; RESP 16; TEMP 36.4; O2SAT 99
[2024-01-28] MEDS: Lactated Ringers 1,000 ML 100 ML IVCONT (08:49)
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
--- NOTE | 2024-01-28 10:23 | P.OP_ITS ---
Operative Note Operative Note Date of Service: 01/28/24 Narrative: Procedure: Esophagogastroduodenoscopy Endoscopist: Ayleen Rudd MD Indication: Abd pain, melena Anesthesia Provider: Amy Raya CRNA Anesthesia Type: MAC ?? EGD Procedure:?? The procedure, indications, preparation and potential complications were re viewed with the patient, who indicated understanding and gave written informed consent to proceed. A physical exam was performed. The endoscope was introduced through the mouth, and advanced to the second part of duodenum. The mucosa was carefully examined on slow withdrawal of the endoscope. The patient tolerated the procedure well. There were no immediate complications.? ? EGD Findings:? * Esophagus:? The Z line was at 33 cm. There were small erosions and edema at the GE junction. Cold forceps biopsies were taken for histology. * Stomach:? Normal mucosa was noted in the stomach. Retroflexion was performed in the cardia. Random gastric biopsies were taken to rule out H Pylori infection. There was a small raised 3mm nodule along the greater curvature 4-5 cm proximal to pylorus. ? PEG scar. Cold forceps biopsies were taken for histology. * Duodenum:? Mild erythema and congesiton noted in duodenal bulb. The remaning mucosa was normal to the extent examined. Cold forceps biopsies were taken from duodenal bulb and second portion of the duodenum to rule out celiac sprue. ? EGD Impressions:? * Grade A esophagitis * Gastric nodule (biopsy) * Duodenitis (biopsy) ?? Recommendations:?? * Follow biopsy results. Our office will call or send a letter with results within 7-10 days. * Continue PPI therapy. * Avoid NSAIDs. Above has been reviewed with the patient.
[2024-01-28 10:28] VITALS: BP 85/44; PULSE 68; RESP 16; TEMP 36.9; O2SAT 99
[2024-01-28 10:43] VITALS: BP 108/68; PULSE 71; RESP 16; TEMP 36.6; O2SAT 99
== END 2024-01-28 11:13 | disposition home or self-care (01) ==
PROVIDERS: PCP Internal Medicine; Visit Provider Internal Medicine
PROC: 0DJ08ZZ Inspection of Upper Intestinal Tract, Via Natural or Artificial Opening Endoscopic (ICD-10-PCS; CPT 43235; principal; 2024-01-28 10:20)
DX: R10.9 Unspecified abdominal pain (principal); K92.1 Melena; B37.0 Candidal stomatitis; K20.80 Other esophagitis without bleeding; K29.80 Duodenitis without bleeding; D13.1 Benign neoplasm of stomach; D57.3 Sickle-cell trait; G40.909 Epilepsy, unspecified, not intractable, without status epilepticus; Z87.820 Personal history of traumatic brain injury; Z97.0 Presence of artificial eye; E55.9 Vitamin D deficiency, unspecified; R41.3 Other amnesia; Z79.899 Other long term (current) drug therapy; Z88.8 Allergy status to other drugs, medicaments and biological substances; Z98.890 Other specified postprocedural states; Z87.891 Personal history of nicotine dependence
CPT/HCPCS: 43239; 88305; 88313; 88342; J1100; J1596; J2003; J2704

== ENCOUNTER → 2024-01-28 07:56 | Outpatient (BNV) | payer OTHER, SELFPAY | PROVIDERS: PCP Internal Medicine; Visit Provider Internal Medicine | DX: K92.1 Melena (principal); K20.90 Esophagitis, unspecified without bleeding; K29.80 Duodenitis without bleeding; D13.1 Benign neoplasm of stomach | CPT/HCPCS: 43239 ==

== ENCOUNTER 2024-03-18 11:04 | Outpatient (REF) | payer OTHER, SELFPAY | END 2024-03-18 11:05 | disposition home or self-care (01) | LOC: HO.MAMMO 11:04 | PROVIDERS: PCP Internal Medicine; Visit Provider Internal Medicine | DX: Z12.31 Encounter for screening mammogram for malignant neoplasm of breast (principal) | CPT/HCPCS: 77063; 77067 ==

== ENCOUNTER → 2024-03-18 11:15 | Outpatient (BNV) | payer OTHER, SELFPAY | PROVIDERS: PCP Internal Medicine; Visit Provider Internal Medicine | DX: Z12.31 Encounter for screening mammogram for malignant neoplasm of breast (principal) | CPT/HCPCS: 77063; 77067 ==

== ENCOUNTER 2024-04-14 10:17 | Outpatient (AMB) | payer OTHER, SELFPAY ==
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
== END 2024-04-14 12:19 | disposition home or self-care (01) ==
LOC: HO.HUSH 10:17
PROVIDERS: PCP Internal Medicine; Visit Provider Urology
DX: N32.81 Overactive bladder (principal); R32 Unspecified urinary incontinence; N39.0 Urinary tract infection, site not specified
CPT/HCPCS: 98013

== ENCOUNTER → 2024-04-14 10:17 | Outpatient (BNVA) | payer OTHER, SELFPAY | PROVIDERS: PCP Internal Medicine; Visit Provider Urology | DX: N32.81 Overactive bladder (principal); R32 Unspecified urinary incontinence; N39.0 Urinary tract infection, site not specified | CPT/HCPCS: 99212 ==

== ENCOUNTER 2024-04-15 08:43 | Outpatient (REF) | payer OTHER, SELFPAY ==
--- OUTSIDE RECORDS SUMMARY | 2024-04-15 11:32 | XMS_ITS | Encounter Summary ---
Author Organization [employer] Address [address] [facility] [address] [place] [address] Care Team Providers Care Entry Level Chemist Name Role Phone Radha Sánchez MD Primary Care Provide r Reason for Visit * Reason Onset Date Comments Appointment 04/21/2022 Encounter Details Date Type Department Care Team ([facility] st Contact Info) Description 04/21/2022 Telephone [facility] MEDICINE [address] [place] [address] Radha Sánchez MD [address] [place], [place] [phone] Appointment Social History Tobacco Use Types Packs/Day Years Used Date Smoking Tobacco: Former Cigarettes Passive Smoke Exposure: Past Alcohol Use Standard Drinks/Week Comments Never 0 (1 standard drink = 0.6 oz pur e alcohol) Comments Unknown Sex and Gender Information Value Date Recorded Sex Assigned at Female 01/06/2022 10:14 AM EDT Legal Sex Female 10:14 AM EDT Gender Identity Female 01/06/2022 10:14 AM EDT Sexual Orientation Choose not to disclose 2021 10:14 AM EDT COVID-19 Exposure Response Date Recorded In the last 10 days, have yo u been in contact with someone who was confirmed or suspected to have Coronavirus/COVID-19? No / Unsure 04/07/2022 4:17 PM EST documented as of this encounter Miscellaneous Notes * Telephone Encounter - Stefani Del Rio - 04/21/2022 1:07 PM EST Tc from pt returning call to schedule an appt for a follow up with a team provider as PCP is on [facility]. Please contact pt at [phone] documented in this encounter Plan of Treatment Not on file documented as of this encounter Visit Diagnoses Not on filedocumented in this encounter Care Teams Entry Level Chemist Relationship Specialty Start Date End Date Radha Sánchez MD [address] [place] [id number] PCP - General Family Medicine 11/18/17 documented as of this encounter
--- OUTSIDE RECORDS SUMMARY | 2024-04-15 11:33 | XMS_ITS | Encounter Summary ---
Author Organization [employer] Address [address] [place] [address] Care Team Providers Care Kindergartners Helper Name Role Phone Radha Sánchez MD Primary Care Provide r Encounter Details Date Type Department Care Team ([facility] st Contact Info) Description 03/18/2024 Orders Only [facility] [place] MEDICINE [address] [place] [address] Radha Sánchez MD [address] [place], [place] [phone] Social History Tobacco Use Types Packs/Day Years Used Date Smoking Tobacco: Former Cigarettes Passive Smoke Exposure: Past Smokeless Tobacco: Never Alcohol Use Standard Drinks/Week Comments Never 0 (1 standard drink = 0.6 oz pur e alcohol) Alcohol Answer Date Recorded Frequency of Alcohol Consumption Not on file 07/30/2023 Average Number of Drinks Not on file 024 Frequency of Binge Drinking Not on file 07/08 Score 0 07/30/2023 Depression Answer Date Recorded Patient Health Questionnaire-9 Score 0 07/30/2023 Patient Health Questionnaire-9 Score 0 07/30/2023 Last PHQ-9: Questionnaire Data Not on file 0 07/30/2023 Housing Stability Answer Date Recorded What is your housing situation today? I have diane hidalgo 07/30/[address] you li ve. Do you have problems with any of the following? None of the above 07/30/2023 Food Insecurity Answer Date Recorded Within the past 12 months, y ou worried that your food would run out before you got money to buy more: Never True 07/30/2023 Within the past 12 months,th e food you bought just didn't last and you didn't have enough money to get more: Never True Transportation Answer Date Recorded In the past 12 months, has l ack of transportation kept you from medical appts, meetings, work or from getting things needed for daily living? No 07/30/2023 Utilities Answer Date Recorded In the past 12 months, has t he electric, gas, oil or water company threatened to shut off services in your home? No 07/30/2023 Depression Answer Date Recorded Patient Health Questionnaire-2 Score 0 07/30/2023 Internet Access Answer Date Recorded Internet Access Q1 Yes 11/06/2023 Internet Access Q2 Not on file 11/06/2023 Comments Unknown Sex and Gender Information Value Date Recorded Sex Assigned at Female 01/06/2022 10:14 AM EDT Legal Sex Female 10:14 AM EDT Gender Identity Female 01/06/2022 10:14 AM EDT Sexual Orientation Choose not to disclose 2021 10:14 AM EDT documented as of this encounter Plan of Treatment Not on file documented as of this encounter Procedures Procedure Name Priority Date/Time Associated Diagnosis Comments BI MAMMOGRAM SCREENING TOMOSYNTHESIS BILATERAL Routine 03/18/2024 11:15 AM EST documented in this encounter Results * BI Mammogram Screening Tomosynthesis Bilateral (03/18/2024 11:15 AM EST) Anatomical Region Laterality Modality Breast Bilateral Mammography 03/18/2024 11:1 5 AM EST Narrative 03/25/2024 4:09 PM EST ? [facility] ? [address] ?[place] [address] ? Mammography Report ? Signed ? Patient: Chago,Alicia ?MR#: [id number] ?? 3 ? : 1965 ?Acct:[id number] ? Age/Sex: 58 / F ?ADM Date: 01/10/25 ? Loc: HO.MAMMO ? Attending Dr: Radha Frias MD ? Ordering Physician: Radha Sánchez MD ?Results: ?? 1Negative ? Date of Service: 03/18/24 ?Follow Up: 1 Year From Orig ?? inal Mammogram ? Procedure(s): MM tomosynthesis screening BI ?? Accession Number(s): [id number] ? cc: Radha Sánchez MD ? EXAMINATION: ?? MM SCREENING DIGITAL BREAST TOMOSYNTHESIS, BILATERAL ? CLINICAL INFORMATION: ? Screening. Asymptomatic. ? COMPARISON: ?? Mammography: Comparison is made with available priors ? TECHNIQUE: ?? Digital breast mammography with tomosynthesis is performed in both the ?? craniocaudal and mediolateral oblique views along with computer-aided ?? detection (CAD). ? FINDINGS: ?? The breasts are heterogeneously dense, which may obscure small masses ?? (ACR BI-RADS breast composition Category c). ? There are no significant masses, abnormal calcifications, or other ?? abnormalities. ? MM/MM tomosynthesis screening BI ?? IMPRESSION: ?? No mammographic evidence of malignancy. ? ASSESSMENT: ? BI-RADS BI-RADS 1 - Negative ? RECOMMENDATION: ?? Routine annual mammography screening. ? 1 year F/U ? This examination should not preclude the clinical evaluation of a ?? suspicious palpable abnormality. ? This patient's information was entered into a reminder system with a ?? target due date for their next mammogram. ? Electronically signed by: ??Rachel Ram DO ??03/25/2024 04:06 PM EST ?? RP ? Dictated By: ?Rachel Ram DO ? Signed By: ?<Electronically signed by Rachel Ram, DO in OV> ? 03/25/24 1606 ? DD/ 1115 ? TD/TT: 03/18/24 1144 ? Ophthalmic Pathologist: ? Procedure Note Mcter, Image - [facility] [address] [place] [address] Mammography Report Signed Patient: Violeta Anders#: [id number] 3 : 1965Acct:[id number] Age/Sex: 58 / FADM Date: 03/18/24 Loc: HO.MAMMO Attending Dr: Radha Frias MD Ordering Physician: Radha Sánchez MDResults: 1Negative Date of Service: 03/18/24Follow Up: 1 Year From Orig inal Mammogram Procedure(s): MM tomosynthesis screening BI Accession Number(s): [id number] cc: Radha Sánchez MD EXAMINATION: MM SCREENING DIGITAL BREAST TOMOSYNTHESIS, BILATERAL CLINICAL INFORMATION: Screening. Asymptomatic. COMPARISON: Mammography: Comparison is made with available priors TECHNIQUE: Digital breast mammography with tomosynthesis is performed in both the craniocaudal and mediolateral oblique views along with computer-aided detection (CAD). FINDINGS: The breasts are heterogeneously dense, which may obscure small masses (ACR BI-RADS breast composition Category c). There are no significant masses, abnormal calcifications, or other abnormalities. MM/MM tomosynthesis screening BI IMPRESSION: No mammographic evidence of malignancy. ASSESSMENT: BI-RADS BI-RADS 1 - Negative RECOMMENDATION: Routine annual mammography screening. 1 year F/U This examination should not preclude the clinical evaluation of a suspicious palpable abnormality. This patient's information was entered into a reminder system with a target due date for their next mammogram. Electronically signed by: Rachel Ram DO 03/25/2024 04:06 PM [facility] Dictated By: Rachel Ram DO Signed By: <Electronically signed by Rachel Ram DO in OV> 03/25/24 1606 DD/ 1115 TD/TT: 03/18/24 1144 Ophthalmic Pathologist: us Radha Frias MD IMG BI PROCEDURES Michelet kiara Result - Final documented in this encounter Visit Diagnoses Not on filedocumented in this encounter Additional Health Concerns Assessment Noted Time PHQ-9 Depression Total Score: 0 07/30/19 24 1:10 PM EDT documented as of this encounter Care Teams Kindergartners Helper Relationship Specialty Start Date End Date Radha Sánchez MD [address] [place] [address] PCP - General Family Medicine 11/18/17 documented as of this encounter
--- OUTSIDE RECORDS SUMMARY | 2024-04-15 11:33 | XMS_ITS | Encounter Summary ---
Author Organization [employer] Address [address] [place] [address] Care Team Providers Care Machine Stone Polisher Apprentice Name Role Phone Radha Sánchez MD Primary Care Provide r Reason for Visit * Reason Comments Med Refill Encounter Details Date Type Department Care Team ([facility] st Contact Info) Description 03/31/2024 Refill [facility] [address] [place] [address] Radha Sánchez MD [address] [place], [place] [phone] Dark stools Social History Tobacco Use Types Packs/Day Years [...] documented as of this encounter Visit Diagnoses Diagnosis Dark stools Nonspecific abnormal finding in stool contents documented in this encounter Additional Health Concerns Assessment Noted Time PHQ-9 Depression Total Score: 0 07/30/19 24 1:10 PM EDT documented as of this encounter Care Teams Machine Stone Polisher Apprentice Relationship Specialty Start Date End Date Radha Sánchez MD [address] [place] [address] PCP - General Family Medicine 11/18/17 documented as of this encounter
--- OUTSIDE RECORDS SUMMARY | 2024-04-15 11:33 | XMS_ITS | Encounter Summary ---
Author Organization [employer] Address [address] [facility] [address] [place] [address] Care Team Providers Care Child Care Team Lead Name Role Phone Radha Sánchez MD Primary Care Provide r Reason for Visit * Reason Comments Med Change Request Encounter Details Date Type Department Care Team ([facility] st Contact Info) Description 12/31/2023 Refill [facility] [address] [place] [address] Radha Bhatia MD [address] [place] [address] Dark stools Social History Tobacco Use Types [...] documented as of this encounter Care Teams Child Care Team Lead Relationship Specialty Start Date End Date Radha Sánchez MD [address] [place] [address] PCP - General Family Medicine 11/18/17 documented as of this encounter
--- OUTSIDE RECORDS SUMMARY | 2024-04-15 11:33 | XMS_ITS | Encounter Summary ---
Author Organization [employer] Address [address] [place] [address] Care Team Providers Care Leadership Program Internship Name Role Phone Radha Sánchez MD Primary Care Provide r Encounter Details Date Type Department Care Team ([facility] st Contact Info) Description 12/17/2022 Abstract [facility] MEDICINE [address] [place], [place] [phone] Radha Sánchez MD [address] [place], [place] [phone] Social History Tobacco Use Types Packs/Day Years Used Date Smoking Tobacco: Former Cigarettes Passive Smoke Exposure: Past Smokeless Tobacco: Never Alcohol Use Standard Drinks/Week Comments Never 0 (1 standard drink = 0.6 oz pur e alcohol) Housing Stability Answer Date Recorded What is your housing situation today? I have dianejalil hidalgo 12/13/[address] you li ve. Do you have problems with any of the following? None of the above 12/13/2022 Food Insecurity Answer Date Recorded Within the past 12 months, y ou worried that your food would run out before you got money to buy more: Never True 12/13/2022 Within the past 12 months,th e food you bought just didn't last and you didn't have enough money to get more: Never True 09/2022 Transportation Answer Date Recorded In the past 12 months, has l ack of transportation kept you from medical appts, meetings, work or from getting things needed for daily living? No 12/13/2022 Utilities Answer Date Recorded In the past 12 months, has t he electric, gas, oil or water company threatened to shut off services in your home? No 12/13/2022 Depression Answer Date Recorded Patient Health Questionnaire-2 Score 0 05/19/2022 Comments Unknown Sex and Gender Information Value [...] on filedocumented in this encounter Care Teams Leadership Program Internship Relationship Specialty Start Date End Date Radha Sánchez MD [address] [place] [address] PCP - General Family Medicine 11/18/17 documented as of this encounter
--- OUTSIDE RECORDS SUMMARY | 2024-04-15 11:33 | XMS_ITS | Clinical Summary ---
Author Organization [employer] Address [address] [facility] 7[address] [place] [address] Care Team Providers Care Special Education Case Manager Name Role Phone Radha Sánchez MD Primary Care Provide r Allergies Active Allergy Reactions Criticality Noted Date Comments Apple Flavoring Agent (Non-Screening) 10/21/2023 Diphenhydramine 11/26/2023 Dust Mite Extract 10/21/2023 Modified Tree Tyrosine Adsorbate Watermelon Flavoring Agent (Non-Screening) 10/21/2023 Medications acetaminophen (Tylenol) 325 MG tablet TAKE 2 TABLETS BY MOUTH EVERY 6 HOURS NEEDED 06/26/19 22 Active ciclopirox (Loprox) 0.77 % suspension Apply topically every 12 (twelve) hours. 07/25/19 21 Active Diclofenac Sodium 1 % gel APPLY 2 GRAMS TO THE AFFECTED AREA 2-3 TIMES DAILY TOPICALLY 06/27/19 22 Active estradiol (Estrace) 0.1 MG/GM vaginal cream insert (2G) daily for 2 weeks then (1G) daily for 2 weeks then (1G) weekly 06/21/19 21 Active loratadine (Claritin) 10 MG tablet Take 1 tablet by mouth at bed time. 07/28/19 19 Active Myrbetriq 25 MG 24 hr tablet Take 25 mg by mouth in the morning. 12/24/19 22 Active topiramate (Topamax) 25 MG tablet Take 25 mg by mouth if needed each day. 06/27/19 22 Active nortriptyline (Pamelor) 10 MG capsuleIndicat ions:Polymyalg ia (CMS/HCC) Take 1 capsule (10 mg) by mouth at bedtime. 30 capsule 11 05/20/19 23 Active hydrocortisone 2.5 % cream Apply pea sized amount to skin bid for 1 week 15 g 10/07/19 24 Active acetaminophen (Tylenol) 325 MG capsuleIndicat ions:Sore throat Take 2 capsules (650 mg) by mouth every 6 (six) hours if needed for mild pain. 120 capsule 1 11/06/19 24 Active cholecalcifero l (Vitamin D3) 25 MCG (1000 UT) tabletIndicati ons:Vitamin D deficiency TAKE 1 TABLET BY MOUTH EVERY DAY 90 tablet 1 01/08/20 24 Active famotidine (Pepcid) 20 MG tabletIndicati ons:Dark stools Take 1 tablet (20 mg) by mouth at bedtime. TAKE 1 TABLET (20 MG) BY MOUTH IF NEEDED AT BEDTIME FOR HEARTBURN 90 tablet 1 03/01/20 24 Active fluticasone (Flonase) 50 MCG/ACT nasal sprayIndicatio ns:Left otitis media with effusion SHAKE GENTLY. USE 1 TO 2 SPRAYS IN EACH NOSTRIL EACH MORNING. CLEAN TIP AFTER USE. 48 mL 03/14/19 25 Active omeprazole (PriLOSEC) [address] capsuleIndicat ions:Dark stools TAKE 1 CAPSULE BY MOUTH BEFORE BREAKFAST. DO NOT CRUSH OR CHEW. 90 capsule 03/31/19 25 Active omeprazole (PriLOSEC) [address] capsuleIndicat ions:Dark stools TOME 1 CAPSULA (40 MG) POR VIA ORAL ANTES DEL DESAYUNO DO NOT CRUSH OR CHEW 90 capsule 12/31/19 24 025 Discontinued Active Problems Problem Noted Date Diagnosed Date Dark stools 11/26/2023 Assessment & Plan (11/26/2023 7:51 PM EDT): 07/2023 CBC and chem wnl Benign abd exam ,discomfort over epigastrium reported as burning and chronic ,rectal exam today w normal color stools Hemooccult neg here today Dark stools Likely from peptobimol -has apt w GI -June for f up per pt next month and planned for EGD for chronic GERD/gastritis--tried calling several times w GI office but not able to reach-left voice mailfor a call back to try to get earlier apt-advised pt to call to make sure to see GI -start PPIs 30 min before breaskfast and famotidine HS prn only for burning epigastric pain just for now until see GI -alarm signs and symptoms discussed w pt -CBC order today to monitor hb -advised to avoid NSAIDS Epigastric pain 11/26/2023 Cervical cancer screening 10/21/2023 Assessment & Plan (10/21/2023 4:10 PM EDT): PAP smear and pelvic exam done patient will be contacted with results Acute tension headache 10/08/2023 Chronic nonintractable headache 10/08/2023 Assessment & Plan (10/08/2023 11:25 AM EDT): Maintain hydration I advise to avoid triggers like red wine, chocolate, cheese, strong perfumes C/w fioricept PRN Bug bite 10/07/2023 Assessment & Plan (10/07/2023 4:04 PM EDT): No evidence of super infection. Advise hydrocortisone cream, ice. Advise seek medical attention for pain, increase in size or redness, tracking or fever. She agrees with the plan. Decreased hearing of left ear 07/30/2023 Encounter for preventive health examination 07/08 Assessment & Plan (07/30/2023 1:50 PM EDT): See HPI Chronic pain of both knees 07/30/2023 Assessment & Plan (10/08/2023 11:26 AM EDT): Patient has not start yet PT, I advise not to miss her appointment Assessment & Plan (07/30/2023 1:50 PM EDT): Acetaminophen PRN XRAY ordered, she will be contacted with results Bilateral tinnitus 03/11/2023 Assessment & Plan (03/11/2023 12:16 PM EST): I will refer patient to ENT for further evaluation Colon cancer screening 03/11/2023 Acute otitis media 12/05/2022 Encounter for physical examination 07/28/2022 Assessment & Plan (07/28/2022 11:22 AM EDT): Please refer to HPI Multiple food allergies 07/28/2022 Gastroesophageal reflux disease without esophagi tis 07/28/2022 Assessment & Plan (10/08/2023 11:26 AM EDT): I advise patient to avoid NSAIDs, spicy and acid food, I advise to eat at the same time every day, I advise to elevate the head of the bed and take medications as prescribe Assessment & Plan (07/28/2022 11:23 AM EDT): I advise patient to avoid NSAIDs, spicy and acid food, I advise to eat at the same time every day, I advise to elevate the head of the bed and take medications as prescribe Chronic low back pain 05/19/2022 Heartburn 05/19/2022 Increased frequency of urination 05/19/2022 Polymyalgia 04/07/2022 Assessment & Plan (07/28/2022 11:22 AM EDT): Likely fibromyalgia Patient was educated about multidisciplinary approach for her condition, it was advise cardiovascular exercise, maintain hydration, treat anxiety/depression and take medications as directed Assessment & Plan (05/22/2022 2:21 PM EDT): Reviewed labs normal from 03/2022 Discussed nature of fibromyalgia Encouraged exercise as tolerated, sleeping well Start nortriptyline 10mg at night for sleep and pain Fatigue 04/07/2022 Vitamin D deficiency 03/16/2017 Seizure disorder 05/26/2016 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 Sickle cell trait 01/27/2012 Encounters Date Type Department Care Team Description 03/31/2024 Refill [facility] [address] [place] [phone] Radha Sánchez MD Dark stools 03/18/2024 Orders Only [facility] [address] [place] [phone] Radha Sánchez MD 03/12/2024 Refill [facility] [address] [place] [address] Radha Sánchez MD Left otitis media with effusion 03/01/2024 Refill [facility] [address] [place] [address] Radha Sánchez MD Dark stools 01/31/2024 Refill [facility] [address] [place] [address] Radha Bhatia MD Dark stools 01/28/2024 Orders Only GENERIC EXTERNAL DATA DEPARTMENT Provider, Generic External Data from Last 3 Months Immunizations Name Administration Dates Next Due Influenza Injectable Quadriv alant Preservative Free IIV4 MDCK 03/18/2021 Influenza injectable quadrivalent preservative f ree 11/18/2021,03/06/2020 Influenza, IIV3, injectable 01/19/1997 Influenza, seasonal, injectable, preservative fr ee 12/07/2023 RSV Bivalent 04/03/2023 TD (adult), 2 Lf tetanus tox oid, preservative free, adsorbed 09/06/2009 Tdap 01/18/2020 Zoster, Recombinant 05/07/2020,03/06/2020 Social History Tobacco Use Types Packs/Day Years Used Date Smoking Tobacco: Former Cigarettes Passive Smoke Exposure: Past Smokeless Tobacco: Never Tobacco Cessation:Counseling Given: Not Answered Alcohol Use Standard Drinks/Week Comments Never 0 [...] the past 12 months, has t he [employer], gas, oil or water company threatened to [...] not to disclose 2021 10:14 AM EDT Last Filed Vital Signs Vital Sign Reading Time Taken Comments Blood Pressure 124/68 11/26/2023 11:22 AM EDT Pulse 55 11/26/2023 11:22 AM EDT Temperature 36.2 ??C (97.1 ??F) 11/26/2023 11:22 AM E DT Respiratory Rate 20 11/26/2023 11:22 AM EDT Oxygen Saturation 99% 11/26/2023 11:22 AM EDT Inhaled Oxygen Concentration - - Weight 60.9 kg (134 lb 3.2 oz) 11/26/2023 11:22 AM EDT Height 157.5 cm (5' 2 ) 11/26/2023 11:22 AM EDT Body Mass Index 24.55 11/26/2023 11:22 AM EDT Plan of Treatment Health Maintenance Due Date Last Done Comments CT Colonography 1965 Colonoscopy 1965 Colorectal Cancer Screening 1965 FIT DNA/Cologuard 1965 FIT 1965 FOBT 1965 Sigmoidoscopy 1965 Pneumococcal Vaccine: 50+ Years (1 of 1 - PCV) 2013 COVID-19 Vaccine ( - 2023- season) 2023 Alcohol/Substance Use Screening 07/29/2024 07/30/2023 Depression Screening 07/29/2024 07/30/2023, 07/30/19 24 SDOH Screening 07/29/2024 07/30/2023 Tobacco Screening 11/25/2024 11/26/2023 Mammogram 03/18/2025 03/18/2024, 02/07, 02/27/2022, Additional history exists Cervical Cancer Screening 10/20/2028 HPV/Cotest 10/20/2028 10/21/2023 Pap Smear 10/20/2028 10/21/2023, 07/23/2020 DTaP/Tdap/Td Vaccines (2 - Td or Tdap) 01/17/2030 01/18/2020, 09/06/2009 HIV Screening Completed 11/01/2019 Zoster Vaccines Completed 05/07/2020, 03/06/2020 RSV Patients and Patients Aged 60 years or older Completed 04/03/2023 Hepatitis C Screening Completed 07/31/2023 Influenza Vaccine Completed 12/07/2023, , 03/18/2021, Additional history exists HIB Vaccines Aged Out No longer eligi ble based on patient's age to complete this topic HPV Vaccines Aged Out No longer eligi ble based on patient's age to complete this topic Hepatitis A Vaccines Aged Out No long er eligible based on patient's age to complete this topic Hepatitis B Vaccines Aged Out No long er eligible based on patient's age to complete this topic IPV Vaccines Aged Out No longer eligi ble based on patient's age to complete this topic Meningococcal Vaccine Aged Out No livier brad eligible based on patient's age to complete this topic RSV under 20 months Aged Out No longe r eligible based on patient's age to complete this topic Rotavirus Vaccines Aged Out No longer eligible based on patient's age to complete this topic Procedures Procedure Name Priority Date/Time Associated Diagnosis Comments BI MAMMOGRAM SCREENING TOMOSYNTHESIS BILATERAL Routine 03/18/2024 11:15 AM EST HEMATOXYLIN AND EOSIN STAIN Routine 01/28/2024 10:14 AM EST THINPREP IMAGING PAP AND HPV MRNA E6/E7 Routine 10/21/2023 12:00 AM EDT HEPATITIS C AB W/REFL TO HCV RNA, QN, PCR Routine 07/31/2023 2:06 PM EDT Encounter for preventive health examination HIV 1/2 ANTIGEN/ANTIBODY, FOURTH GENERATION W/RFL Routine 11/01/2019 10:52 AM EDT from Last 3 Months or Most Recently Relevant to Health Maintenance Results * BI Mammogram Screening Tomosynthesis Bilateral (03/18/2024 11:15 AM EST) Anatomical Region Laterality Modality Breast Bilateral Mammography 03/18/2024 11:1 5 AM EST Narrative 03/25/2024 4:09 PM EST ? [facility] ? [address] ?[place] [address] ? Mammography Report ? Signed ? Patient: Chago,Alicia ?MR#: [id number] ?? 3 ? : 1965 ?Acct:[id number] ? Age/Sex: 58 / F ?ADM Date: //25 ? Loc: HO.MAMMO ? Attending Dr: Radha Frias MD ? Ordering Physician: Radha Sánchez MD ?Results: ?? 1Negative ? Date of Service: //25 ?Follow Up: 1 Year From Orig ?? inal Mammogram ? Procedure(s): MM tomosynthesis screening BI ?? Accession Number(s): [id number] ? cc: Radha Sánchez MD ? EXAMINATION: [...] ??Rachel Ram DO ??03/25/2024 04:06 PM EST ? Dictated By: ?Rachel Ram DO ? Signed By: ?<Electronically signed by Rachel Ram, DO in OV> ? 03/25/24 1606 ? DD/ 1115 ? TD/TT: 03/18/24 1144 ? Parts Product Analyst: ? Procedure Note Jasmyn, Goran - 03/25/2024 [facility] [address] [place] [address] [place] [address] Mammography Report Signed Patient: Violeta Anders#: [id number] 3 : 1965Acct:[id number] Age/Sex: 58 / FADM Date: 03/18/24 Loc: HO.MAMMO Attending Dr: Radha Frias MD Ordering Physician: Radha Sánchez MDResults: 1Negative Date of Service: 03/18/24Follow Up: 1 Year From Orig inal Mammogram Procedure(s): MM tomosynthesis screening BI Accession Number(s): [id number] cc: Radha Sánchez MD EXAMINATION: MM SCREENING [...] by: Rachel Ram DO 03/25/2024 04:06 PM EST Dictated By: Rachel Ram DO Signed By: <Electronically signed by Rachel Ram DO in OV> 03/25/24 1606 DD/ 1115 TD/TT: 03/18/24 1144 Parts Product Analyst: us Radha Frias MD IMG BI PROCEDURES Michelet kiara Result - Final * Hematoxylin and Eosin Stain (01/28/2024 10:14 AM EST) 01/28/2024 10:1 4 AM EST 01/28/2024 10:54 AM EST [facility] - 02/01/2024 10:18 AM EST ----- ------- Name: ChagoAlicia ?Age/Sex: 58/F ? : 1965 Unit#: [id number] ?? Attend Dr: Ayleen Rudd MD ?Re01/28/24 ?Status: DEP SDC ? Location: HO.SSS ?Disch: ? ----- ------- SPEC : [id number] ? RECD: 01/28/24-1053 ? STATUS: ??SOUT ? REQ NUM: [id number] ? INGRID: 01/28/24-1014 ? SUBM DR: Ayleen Rudd MD ? ENTERED: ??01/28/24-1055 ?SP TYPE: Surgical ? OTHR DR: Radha Sánchez MD ? ORDERED: ??HE Stain/12, Gross Micro L4/4, IHC/2, Special st. 2/4, H. pylori/2, AB/PAS/4 ? THIS IS A CORRECTED REPORT ??02/01/24-1016 ?This is a corrected report. ?Any previous versions are stored internally and are available if necessary. ? Diagnosis ?? A. ??Duodenum, biopsy: ??Duodenal mucosa within normal limits. ? B. ??Stomach, random, biopsy: ??Antral-type and oxyntic mucosa with mild chronic inactive ?? inflammation; no Helicobacter organisms seen. ? C. ??Stomach, nodule, biopsy: ??Antral-type mucosa with moderate chronic inactive ?? inflammation and surface hyperplastic changes; no Helicobacter organisms seen. ? D. ??EG junction, biopsy: ?- Mark esophagus with background moderate chronic inctive inflammation. ?- No dysplasia seen. ?- Squamous mucosa within normal limits. ? Note: ?? Corrected Report Note (02/01/2024): Corrected special studies line. ??No other changes are ?? made. ?Clinical History Pre-Op Dx: ??Candidiasis, unspecified Post-Op Dx: Duodenitis, gastritis ?Microscopic Description A-D. ??Microscopic sections examined. ??Fpcal intestinal metaplasia is seen in D and no metaplastic changes are seen in A, B or C, supported by AB/PAS stains; no Helicobacter organisms are seen, supported by H. pylori immunostain (B or C). ? Material Received ?? A. Duodenum bx ?? B. Random gastric bx ?? C. Gastric nodule bx ?? D. EG junction bx ? CONTINUED ON NEXT PAGE ----- ------- Name: Alicia nAders ?Age/Sex: 58/F ? : 1965 Unit#: [id number] ?? Attend Dr: Ayleen Rudd MD ?Re01/28/24 ?Status: DEP SDC ? Location: HO.SSS ?Disch: ? ----- ------- SPEC : [id number] ? RECD: 01/28/24-1053 ? STATUS: ??SOUT ? REQ NUM: [id number] ? INGRID: 01/28/24-4 ? SUBM DR: Ayleen Rudd MD ? ENTERED: ??01/28/24-1055 ?SP TYPE: Surgical ? OTHR DR: Radha Sánchez MD ? ORDERED: ??HE Stain/12, Gross Micro L4/4, IHC/2, Special st. 2/4, H. pylori/2, AB/PAS/4 ? Gross Description Received in four parts. Part A: ??Received in formalin labeled ?duodenum bx? are 4 allen-pink irregular and rectangular tissue fragments ranging from 0.25-0.35 cm, submitted in toto in a cassette labeled A. Part B: ??Received in formalin labeled ?random gastric bx? are 3 allen irregular and rectangular tissue fragments ranging from less than 0.1-0.3 cm, submitted in toto in a cassette labeled B. Part C: ??Received in formalin labeled ?gastric nodule bx? is a 0.3 cm allen irregular tissue fragment, submitted in toto in a cassette labeled C. Part D: ??Received in formalin labeled ?EG junction bx? are 5 alonso- white and allen-pink irregular tissue fragments ranging from 0.2-0.3 cm submitted in toto in a cassette labeled D. ??CEDS Special studies ordered and performed: Immunostain for H. pylori on B and C; AB/PAS stains on A, B, C and D Copies To: ?? Radha Sánchez MD ?? [facility] ?? [address] ?? [place] [address] ?? [phone] ?? Ayleen Rudd MD ?? [facility] ?? [address] ?? [place] [address] ?? [phone] ?? [email or web address] ----- ------- Signed (signature on file) Kwame Uribe MD 02/01/24 1018 ? ----- ------- ? END OF REPORT ? us Generic External Data Provider LAB BLOOD ORDERAB LES Final Result [facility] [address] [place], [place] [phone] * ThinPrep Imaging Pap and HPV mRNA E6/E7 (10/21/2023 12:00 AM EDT) HPV nRNA E6/E7 Not Detected Not Detected [facility] Comment:Methodology: Transcr iption-Mediated AmplificationThis assay detects E6/E7 viral messenger RNA (mRNA) from 14high-risk HPV types (16,18,31,33,35,39,45,51,52,56,58,59,66,68).Cervical sources are required for HPV testing.If a vaginal source from a patient who has had atotal hysterectomy with removal of cervix wassubmitted, please contact the testing laboratoryfor alternative testing options.For additional information, please refer tohttp://education.Experiment/faq/ZDX593m8(This link if provided for information/educational purposes only.)THIS TEST WAS PERFORMED AT:[employer] [place] [id number] VILLANUEVA MD SOURCE: SEE NOTE [facility] Comment:None given Report Status: TNP [facility] Clinical Information: SEE NOTE [facility] Comment:None given LMP: SEE NOTE [facility] Comment:NONE GIVEN Prev. PAP: SEE NOTE [facility] Comment:NONE GIVEN Prev. BX: SEE NOTE [facility] Comment:NONE GIVEN Statement Of Adequacy: SEE NOTE [facility] Comment:Satisfactory for kenny luation.Endocervical/transformation zone componentpresent.Partially obscuring inflammationPartially obscuring blood General Categorization: [facility] Interpretation/Result: SEE NOTE [facility] Comment:Cytology Results: Ne gative for intraepitheliallesion or malignancy. Cytology Comment SEE NOTE [facility] Comment:This Pap test has be en evaluated with computerassisted technology. Journeyman Pressman: SEE NOTE [facility] Comment:RPR, CT (ASCP) CT sc reening location: [address] [address] Review Journeyman Pressman: [facility] Pathologist [facility] PAP Infection [facility] See Note SEE NOTE [facility] Comment:EXPLANATORY NOTE:The Pap is a screening test for cervical cancer. It isnot a diagnostic test and is subject to false negativeand false positive results. It is most reliable when asatisfactory sample, regularly obtained, is submittedwith relevant clinical findings and history, and whenthe Pap result is evaluated along with historic andcurrent clinical information. 10/21/2023 10/21/2023 Narrative [facility] - 10/26/2023 10:54 AM EDT SEE SCANNED RESULTS IN EMR us Radha Frias MD LAB PATHOLOGY ORDERAB LES Final Result [facility] [address] [place] [phone] * Hepatitis C Antibody with Reflex to HCV, RNA, Quantitative, Real-Time PCR (07/31/2023 2:06 PM EDT) Hepatitis C Antibody Nonreactive Nonreactive [facility] Comment:Antibodies to HCV no t detected; does not exclude early acuteHCV infection. Blood Venous blood specimen / Unknown 07/31/2023 2:06 PM EDT 07/31/2023 4:03 PM EDT us Radha Frias MD LAB BLOOD ORDERABLES Final Result [facility] [address], [place] [phone] * HIV 1/2 ANTIGEN/ANTIBODY,FOURTH GENERATION W/RFL (11/01/2019 10:52 AM EDT) HIV-1/2 ANTIGEN AND ANTIBODIES, 4TH GENERATION W/ REFLEX NON-REACT YELENA NON-REACT YELENA [facility] Comment: HIV-1 antigen and HIV-1/HIV-2 antibodies were not detected. There is no laboratory evidence of HIV infection. ?? PLEASE NOTE: This information has been disclosed to you from records whose confidentiality may be protected by state law. ??If your state requires such protection, then the state law prohibits you from making any further disclosure of the information without the specific written consent of the person to whom it pertains, or as otherwise permitted by law. A general authorization for the release of medical or other information is NOT sufficient for this purpose. ? For additional information please refer to http://education.Experiment/faq/TVG214 (This link is being provided for informational/ educational purposes only.) ? The performance of this assay has not been clinically validated in patients less than 2 years old. ?? 11/01/2019 10:5 2 AM EDT us Radha Frias MD LAB BLOOD ORDERABLES Final Result [facility] [address] from Last 3 Months or Most Recently Relevant to Health Maintenance Insurance [facility] Care Teams Special Education Case Manager Relationship Specialty Start Date End Date Radha Sánchez MD [address] [place] [address] PCP - General Family Medicine 11/18/17
== END 2024-04-15 08:44 | disposition home or self-care (01) ==
LOC: HO.LAB 08:43
PROVIDERS: PCP Internal Medicine; Visit Provider Urology
DX: N39.0 Urinary tract infection, site not specified (principal)
CPT/HCPCS: 87086

== ENCOUNTER 2024-05-09 15:32 | Outpatient (REF) | payer OTHER, SELFPAY ==
[2024-05-09 17:22] LABS: Appearance Urine Clear; Color Urine Yellow; Glucose Urine UA Negative (Negative); Leukocyte Esterase Urine Large (3+) (Negative); Nitrite Urine Negative (Negative); PH 6.5 (5.0-9.0); Specific Gravity - Urine 1.015 (1.005-1.025); UMIC TRIGGER UA YES; Urine Blood Negative (Negative); Urine Ketones Negative (Negative); Urine Protein Negative (Neg-Trace)
[2024-05-09 17:25] LABS: Bacteria Urine 1+ (None Seen); Hyaline Casts Urine 0-2 /LPF (0-2); RBC Urine 0-2 /HPF (0-2); WBC Urine 21-50 /HPF (0-5)
--- OUTSIDE RECORDS SUMMARY | 2024-05-09 18:23 | XMS_ITS | Encounter Summary ---
Author Organization [employer] Address [address] [place] [address] Care Team Providers Care Fitness Supervisor Name Role Phone Radha Sánchez MD Primary Care Provide r Encounter Details Date Type Department Care Team ([facility] st Contact Info) Description 12/17/2022 Abstract [facility] [address] [place], [place] [phone] Radha Sánchez MD [address] [place], [place] [phone] Social History Tobacco Use Types Packs/Day Years [...] as of this encounter Plan of Treatment Upcoming Encounters Date Type Department Care Team (Late st Contact Info) Description 08/03/2024 10:45 AM EDT Office Visit [facility] [address] [place] [address] Radha Sánchez MD [address] [place] [address] documented as of this encounter Visit Diagnoses Not on filedocumented in this encounter Care Teams Fitness Supervisor Relationship Specialty Start Date End Date Radha Sánchez MD [address] [place] [phone] PCP - General Family Medicine 11/18/17 documented as of this encounter
--- OUTSIDE RECORDS SUMMARY | 2024-05-09 18:23 | XMS_ITS | Encounter Summary ---
Author Organization [employer] Address [address] [facility] [address] [place] [address] Care Team Providers Care Naphthol Soaping Machine Operator Name Role Phone Radha Sánchez MD Primary Care Provide r Reason for Visit * Reason Comments Med Change Request Encounter Details Date Type Department Care Team ([facility] st Contact Info) Description 12/31/2023 Refill [facility] [address] [place] [address] Radha Bhatia MD [address] [place] [address] Dark stools Social History Tobacco Use Types [...] Description 08/03/2024 10:45 AM EDT Office Visit [facility] [address] [place] [phone] Radha Sánchez MD [address] [place] [phone] documented as of this encounter Visit Diagnoses Diagnosis Dark stools Nonspecific abnormal finding in stool contents documented in this encounter Additional Health Concerns Assessment Noted Time PHQ-9 Depression Total Score: 0 07/30/19 24 1:10 PM EDT documented as of this encounter Care Teams Naphthol Soaping Machine Operator Relationship Specialty Start Date End Date Radha Sánchez MD [address] [place] [phone] PCP - General Family Medicine 11/18/17 documented as of this encounter
--- OUTSIDE RECORDS SUMMARY | 2024-05-09 18:23 | XMS_ITS | Encounter Summary ---
Author Organization [employer] Address [address] [facility] [address] [place] [address] Care Team Providers Care Performance Engineer Name Role Phone Radha Sánchez MD Primary Care Provide r Encounter Details Date Type Department Care Team ([facility] Contact Info) Description 04/15/2024 Orders Only GENERIC EXTERNAL DATA DEPARTMENT Provider, Generic External Data Social History Tobacco Use Types Packs/Day Years [...] Description 08/03/2024 10:45 AM EDT Office Visit [facility] [address] [place] [phone] Radha Sánchez MD [address] [place] [address] documented as of this encounter Procedures Procedure Name Priority Date/Time Associated Diagnosis Comments CULTURE, URINE, ROUTINE Routine 04/15/2024 8:43 AM EST documented in this encounter Results * Culture, Urine, Routine (04/15/2024 8:43 AM EST) Urine Urine specimen obtained by clean catch procedure / Unknown 04/15/2024 8:43 AM EST 04/15/2024 4:03 PM EST Comment:[facility] - 04/17/2024 11:21 AM EST Urine Culture Report Result Urine Culture 10,000 to 50,000 cfu/ml Urine Culture Mixed bacterial rogelio characteristic of Urine Culture urogenital contamination. Specimen Source: Urine clean catch us Generic External Data Provider LAB MICROBIOLOGY - GENERAL ORDERABLES Final Result [facility] [address] [place] [address] [phone] documented in this encounter Visit Diagnoses Not on filedocumented in this encounter Additional Health Concerns Assessment Noted Time PHQ-9 Depression Total Score: 0 07/30/19 24 1:10 PM EDT documented as of this encounter Care Teams Performance Engineer Relationship Specialty Start Date End Date Radha Sánchez MD [address] [place] [address] PCP - General Family Medicine 11/18/17 documented as of this encounter
--- OUTSIDE RECORDS SUMMARY | 2024-05-09 18:23 | XMS_ITS | Encounter Summary ---
Author Organization [employer] Address [address] [facility] 7t [place] [address] Care Team Providers Care Factorer Name Role Phone Radha Sánchez MD Primary Care Provide r Reason for Visit * Reason Onset Date Comments Appointment 04/21/2022 Encounter Details Date Type Department Care Team ([facility] st Contact Info) Description 04/21/2022 Telephone [facility] [address] [place], [place] [phone] Radha Sánchez MD [address] [place], [place] [phone] Appointment Social History Tobacco Use Types Packs/Day [...] is on MLOA. Please contact pt at [phone] documented in this encounter Plan of Treatment Upcoming Encounters Date Type Department Care Team (Late st Contact Info) Description 08/03/2024 10:45 AM EDT Office Visit [facility] [address] [place] [address] Radha Sánchez MD [address] [place] [address] documented as of this encounter Visit Diagnoses Not on filedocumented in this encounter Care Teams Factorer Relationship Specialty Start Date End Date Radha Sánchez MD [address] [place] [address] [phone] PCP - General Family Medicine 11/18/17 documented as of this encounter
--- OUTSIDE RECORDS SUMMARY | 2024-05-09 18:23 | XMS_ITS | Encounter Summary ---
Author Organization [employer] Address [address] [place] [address] Care Team Providers Care Delivery Rep Name Role Phone Radha Sánchez MD Primary Care Provide r Encounter Details Date Type Department Care Team ([facility] Contact Info) Description 05/09/2024 Orders Only GENERIC EXTERNAL DATA DEPARTMENT Provider, [...] Description 08/03/2024 10:45 AM EDT Office Visit [facility] [address] [place] [phone] Radha Sánchez MD [address] [place] [address] documented as of this encounter Procedures Procedure Name Priority Date/Time Associated Diagnosis Comments URINALYSIS, COMPLETE Routine 05/09/2024 12:00 AM EST documented in this encounter Results * (ABNORMAL) Urinalysis Complete (05/09/2024 12:00 AM EST) Color Urine Yellow [facility] Appearance Urine Clear [facility] PH 6.5 5.0 - 9.0 [facility] Glucose Urine UA Negative Negative mg/dL [facility] Urine Blood Negative Negative [facility] Specific Orange - Urine 1.015 1.005 - 1.025 [facility] Urine Protein Negative Neg-Trace mg/dL [facility] Urine Ketones Negative Negative mg/dL [facility] Nitrite Urine Negative Negative [facility] Leukocyte Esterase Urine Large (3+)(A) Negative [facility] RBC Urine 0-2 0 - 2 /HPF [facility] Urine WBC 21-50(A) 0 - 5 /HPF [facility] Urine Squamous Epithelial Cell 6-10 0 - 2 /HPF [facility] Urine Bacteria 1+ None Seen [facility] Hyaline Casts, Urine 0-2 0 - 2 /LPF [facility] 05/09/2024 05/09/2024 us Generic External Data Provider LAB URINE ORDERAB LES Final Result [facility] [address] [place] [phone] documented in this encounter Visit Diagnoses Not on filedocumented in this encounter Additional Health Concerns Assessment Noted Time PHQ-9 Depression Total Score: 0 07/30/19 24 1:10 PM EDT documented as of this encounter Care Teams Delivery Rep Relationship Specialty Start Date End Date Radha Sánchez MD [address] [place] [phone] PCP - General Family Medicine 11/18/17 documented as of this encounter
--- OUTSIDE RECORDS SUMMARY | 2024-05-09 18:23 | XMS_ITS | Clinical Summary ---
Author Organization [employer] Address [address] [facility] 7[address] [place] [address] Care Team Providers Care Kitchenhand Name Role Phone Radha Sánchez MD Primary Care Provide r Allergies Active Allergy Reactions Criticality Noted Date Comments Apple Flavoring Agent (Non-Screening) 10/21/2023 Diphenhydramine 11/26/2023 Dust Mite Extract 10/21/2023 Modified Tree Tyrosine Adsorbate Watermelon Flavoring Agent (Non-Screening) 10/21/2023 Medications acetaminophen (Tylenol) 325 MG tablet TAKE 2 TABLETS BY MOUTH EVERY 6 HOURS NEEDED 2 Active ciclopirox (Loprox) 0.77 % suspension Apply topically every 12 (twelve) hours. 1 Active Diclofenac Sodium 1 % gel APPLY 2 GRAMS TO THE AFFECTED AREA 2-3 TIMES DAILY TOPICALLY 2 Active estradiol (Estrace) 0.1 MG/GM vaginal cream insert (2G) daily for 2 weeks then (1G) daily for 2 weeks then (1G) weekly 1 Active loratadine (Claritin) 10 MG tablet Take 1 tablet by mouth at bed time. 9 Active Myrbetriq 25 MG 24 hr tablet Take 25 mg by mouth in the morning. 2 Active topiramate (Topamax) 25 MG tablet Take 25 mg by mouth if needed each day. 2 Active nortriptyline (Pamelor) 10 MG capsuleIndicati ons:Polymyalgia (CMS/HCC) Take 1 capsule (10 mg) by mouth at bedtime. 30 capsule 11 3 Active hydrocortisone 2.5 % cream Apply pea sized amount to skin bid for 1 week 15 g 4 Active acetaminophen (Tylenol) 325 MG capsuleIndicati ons:Sore throat Take 2 capsules (650 mg) by mouth every 6 (six) hours if needed for mild pain. 120 capsule 1 4 Active cholecalciferol (Vitamin D3) 25 MCG (1000 UT) tabletIndicatio ns:Vitamin D deficiency TAKE 1 TABLET BY MOUTH EVERY DAY 90 tablet 1 4 Active famotidine (Pepcid) 20 MG tabletIndicatio ns:Dark stools Take 1 tablet (20 mg) by mouth at bedtime. TAKE 1 TABLET (20 MG) BY MOUTH IF NEEDED AT BEDTIME FOR HEARTBURN 90 tablet 1 4 Active fluticasone (Flonase) 50 MCG/ACT nasal sprayIndication s:Left otitis media with effusion SHAKE GENTLY. USE 1 TO 2 SPRAYS IN EACH NOSTRIL EACH MORNING. CLEAN TIP AFTER USE. 48 mL 5 Active omeprazole (PriLOSEC) [address] capsuleIndicati ons:Dark stools TAKE 1 CAPSULE BY MOUTH BEFORE BREAKFAST. DO NOT CRUSH OR CHEW. 90 capsule 5 Active Active Problems Problem Noted Date Diagnosed Date [...] Encounters Date Type Department Care Team Description 05/09/2024 Orders Only GENERIC EXTERNAL DATA DEPARTMENT Provider, Generic External Data 04/15/2024 Orders Only GENERIC EXTERNAL DATA DEPARTMENT Provider, Generic External Data 03/31/2024 Refill [facility] [address] [place] [address] Radha Sánchez MD Dark stools 03/18/2024 Orders Only [facility] [address] [place] [address] Radha Sánchez MD 03/12/2024 Refill [facility] [address] [place], [place] [phone] Radha Sánchez MD Left otitis media with effusion 03/01/2024 Refill [facility] [address] [place] [phone] Radha Sánchez MD Dark stools from Last 3 Months Immunizations Name Administration [...] 11/26/2023 11:22 AM EDT Plan of Treatment Upcoming Encounters Date Type Department Care Team (Late st Contact Info) Description 08/03/2024 10:45 AM EDT Office Visit [facility] [address] [place] [address] Radha Sánchez MD [address] [place] [address] Health Maintenance Due Date Last Done Comments CT Colonography 1965 Colonoscopy 1965 Colorectal Cancer Screening 1965 FIT DNA/Cologuard 1965 FIT 1965 FOBT 1965 Sigmoidoscopy 1965 Pneumococcal Vaccine: 50+ Years (1 of 1 - PCV) 2013 COVID-19 Vaccine ( - 2023- season) 2023 Alcohol/Substance Use Screening 07/29/2024 07/30/2023 Depression Screening 07/29/2024 07/30/2023, 07/30/19 SDOH Screening 07/29/2024 07/30/2023 Tobacco Screening 11/25/2024 [...] URINALYSIS, COMPLETE Routine 05/09/2024 12:00 AM EST CULTURE, URINE, ROUTINE Routine 04/15/2024 8:43 AM EST BI MAMMOGRAM SCREENING TOMOSYNTHESIS BILATERAL Routine 03/18/2024 11:15 AM EST THINPREP IMAGING PAP AND HPV MRNA E6/E7 Routine 10/21/2023 12:00 AM EDT HEPATITIS C AB W/REFL TO HCV RNA, QN, PCR Routine 07/31/2023 2:06 PM EDT Encounter for preventive health examination HIV 1/2 ANTIGEN/ANTIBODY, FOURTH GENERATION W/RFL Routine 11/01/2019 10:52 AM EDT from Last 3 Months or Most Recently Relevant to Health Maintenance Results * (ABNORMAL) Urinalysis Complete (05/09/2024 12:00 AM EST) Color Urine Yellow [facility] Appearance Urine Clear [facility] PH 6.5 5.0 - 9.0 [facility] Glucose Urine UA Negative Negative mg/dL [facility] Urine Blood Negative Negative [facility] Specific Elsie - Urine 1.015 1.005 - 1.025 [facility] Urine Protein Negative Neg-Trace mg/dL [facility] Urine Ketones Negative Negative mg/dL [facility] Nitrite Urine Negative Negative [facility] Leukocyte Esterase Urine Large (3+)(A) Negative [facility] RBC Urine 0-2 0 - 2 /HPF [facility] Urine WBC 21-50(A) 0 - 5 /HPF [facility] Urine Squamous Epithelial Cell 6-10 0 - 2 /HPF [facility] Urine Bacteria 1+ None Seen [facility] Hyaline Casts, Urine 0-2 0 - 2 /LPF [facility] 05/09/2024 05/09/2024 us Generic External Data Provider LAB URINE ORDERAB LES Final Result [facility] [address] [place], [place] [phone] * Culture, Urine, Routine (04/15/2024 8:43 AM EST) Urine Urine specimen obtained by clean catch procedure / Unknown 04/15/2024 8:43 AM EST 04/15/2024 4:03 PM EST Comment:[facility] Narrative [facility] - 04/17/2024 11:21 AM EST Urine Culture Report Result Urine Culture 10,000 to 50,000 cfu/ml Urine Culture Mixed bacterial rogelio characteristic of Urine Culture urogenital contamination. Specimen Source: Urine clean catch us Generic External Data Provider LAB MICROBIOLOGY - GENERAL ORDERABLES Final Result Performing Organization Address City/State/[facility] Co de Phone Number [facility] [address] [place] [address] [phone] * BI Mammogram Screening Tomosynthesis Bilateral (03/18/2024 11:15 AM EST) Anatomical Region Laterality Modality Breast Bilateral Mammography 03/18/2024 11:1 5 AM EST Narrative 03/25/2024 4:09 PM EST ? [facility] [place] ? [address] ?[place] [address] ? Mammography Report ? Signed ? Patient: Chago,Alicia ?MR#: [id number] ?? 3 ? : 1965 ?Acct:[id number] ? Age/Sex: 58 / F ?ADM Date: 01/10/25 ? Loc: HO.MAMMO ? Attending Dr: Radha Frias MD ? Ordering Physician: Radha Sánchez MD ?Results: ?? 1Negative ? Date of Service: 03/18/24 ?Follow Up: 1 Year From Orig ?? inal Mammogram ? Procedure(s): MM tomosynthesis screening BI ?? Accession Number(s): [id number] ? cc: Radha Sánchez MD ? EXAMINATION: [...] DD/ 1115 ? TD/TT: 03/18/24 1144 ? Planning Feeder: ? Procedure Note Jasmyn, Image - 03/25/2024 [facility] [address] [place] [address] Mammography Report Signed Patient: Nesha AndersR#: [id number] 3 : 1965Acct:[id number] Age/Sex: 58 / FADM Date: 03/18/24 Loc: HO.MAMMO Attending Dr: Radha Frias MD Ordering Physician: Radha Sánchez MDResults: 1Negative Date of Service: 03/18/24Follow Up: 1 Year From Orig inal Mammogram Procedure(s): MM tomosynthesis screening BI Accession Number(s): [id number] cc: Radha Sánchez MD EXAMINATION: MM SCREENING [...] by: Rachel Ram DO 03/25/2024 04:06 PM [facility] Dictated By: Rachel Ram DO Signed By: <Electronically signed by Rachel Ram DO in OV> 03/25/24 1606 DD/ 1115 TD/TT: 03/18/24 1144 Planning Feeder: Radha Frias MD IMG BI PROCEDURES Michelet kiara Result - Final * [facility]in[facility] Imaging Pap and HPV mRNA E6/E7 (10/21/2023 12:00 AM EDT) HPV nRNA E6/E7 Not Detected Not Detected [facility] Comment:Methodology: Transcr iption-Mediated AmplificationThis assay detects E6/E7 viral messenger RNA (mRNA) from 14high-risk HPV types (16,18,31,33,35,39,45,51,52,56,58,59,66,68).Cervical sources are required for HPV testing.If a vaginal source from a patient who has had atotal hysterectomy with removal of cervix wassubmitted, please contact the testing laboratoryfor alternative testing options.For additional information, please refer tohttp://education.[employer]/faq/TKY952c6(This link if provided for information/educational purposes only.)THIS TEST WAS PERFORMED AT:[employer] [address] [phone] VILLANUEVA MD SOURCE: SEE NOTE [facility] Comment:None given Report Status: [facility] Clinical Information: SEE NOTE [facility] Comment:None given LMP: SEE NOTE [facility] Comment:NONE GIVEN Prev. PAP: SEE NOTE [facility] Comment:NONE GIVEN Prev. BX: SEE NOTE [facility] Comment:NONE GIVEN Statement Of Adequacy: SEE NOTE [facility] Comment:Satisfactory for kenny luation.Endocervical/transformation zone componentpresent.Partially obscuring inflammationPartially obscuring blood General Categorization: [facility] Interpretation/Result: SEE NOTE [facility] Comment:Cytology Results: Ne gative for intraepitheliallesion or malignancy. Cytology Comment SEE NOTE [facility] Comment:This Pap test has be en evaluated with computerassisted technology. Hospice Community Liaison: SEE NOTE [facility] Comment:RPR, CT (ASCP) CT sc reening location: [place] [address] Review Hospice Community Liaison: [facility] Pathologist [facility] PAP Infection [facility] See Note SEE NOTE [facility] Comment:EXPLANATORY NOTE:The Pap is a screening test for cervical cancer. It isnot a diagnostic test and is subject to false negativeand false positive results. It is most reliable when asatisfactory sample, regularly obtained, is submittedwith relevant clinical findings and history, and whenthe Pap result is evaluated along with historic andcurrent clinical information. 10/21/2023 10/21/2023 Narrative [facility] - 10/26/2023 10:54 AM EDT SEE SCANNED RESULTS IN EMR us Radha Frias MD LAB PATHOLOGY ORDERAB LES Final Result Performing Organization Address City/[facility]/ZIP Co de Phone Number [facility] [address] [place] [address] [phone] * Hepatitis C Antibody with Reflex to HCV, RNA, Quantitative, Real-Time PCR (07/31/2023 2:06 PM EDT) Hepatitis C Antibody Nonreactive Nonreactive [facility] Comment:Antibodies to HCV no t detected; does not exclude early acuteHCV infection. Blood Venous blood specimen / Unknown 07/31/2023 2:06 PM EDT 07/31/2023 4:03 PM EDT us Radha Frias MD LAB BLOOD ORDERABLES Final Result Performing Organization Address City/[facility]/ZIP Co de Phone Number [facility] [address] [place] [address] [phone] * HIV 1/2 ANTIGEN/ANTIBODY,FOURTH GENERATION W/RFL (11/01/2019 10:52 AM EDT) HIV-1/2 ANTIGEN AND ANTIBODIES, 4TH GENERATION W/ REFLEX NON-REACT YELENA NON-REACT YELENA [facility] Comment: HIV-1 antigen and HIV-1/HIV-2 [...] ? For additional information please refer to http://education.Main[employer]/faq/MIC797 (This link is being provided for informational/ educational purposes only.) ? The performance of this assay has not been clinically validated in patients less than 2 years old. ?? 11/01/2019 10:5 2 AM EDT Radha Frias MD LAB BLOOD ORDERABLES Final Result [facility] Critical access hospital [facility]where [address] from Last 3 Months or Most Recently Relevant to Health Maintenance Insurance [facility] Care Teams Kitchenhand Relationship Specialty Start Date End Date Radha Sánchez MD [address] [place] [address] PCP - General Family Medicine 11/18/17
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
== END 2024-05-09 15:33 | disposition home or self-care (01) ==
LOC: HO.LAB 15:32
PROVIDERS: PCP Internal Medicine; Visit Provider Urology
DX: N39.0 Urinary tract infection, site not specified (principal); R32 Unspecified urinary incontinence; R35.0 Frequency of micturition; R30.0 Dysuria
CPT/HCPCS: 81001; 87086

== ENCOUNTER 2024-05-14 13:34 | Outpatient (REF) | payer OTHER, SELFPAY ==
--- OUTSIDE RECORDS SUMMARY | 2024-05-14 13:39 | XMS_ITS | Encounter Summary ---
Author Organization [employer] Address [address] [facility] [address] [place] [address] Care Team Providers Care Drug And Alcohol Counselor Name Role Phone Radha Sánchez MD Primary Care Provide r Reason for Visit * Reason Onset Date Comments Appointment 04/21/2022 Encounter Details Date Type Department Care Team ([facility] st Contact Info) Description 04/21/2022 Telephone [facility] MEDICINE [address] [place] [address] Radha Sánchez MD [address] [place], [place] [phone] Appointment Social History Tobacco Use Types Packs/Day [...] is on MLOA. Please contact pt at [phone] documented in this encounter Plan of Treatment Upcoming Encounters Date Type Department Care Team (Late st Contact Info) Description 08/03/2024 10:45 AM EDT Office Visit [facility] MEDICINE [address] [place] [address] Radha Sánchez MD [address] [place] [address] documented as of this encounter Visit Diagnoses Not on filedocumented in this encounter Care Teams Drug And Alcohol Counselor Relationship Specialty Start Date End Date Radha Sánchez MD [address] [place] [address] [phone] PCP - General Family Medicine 11/18/17 documented as of this encounter
--- OUTSIDE RECORDS SUMMARY | 2024-05-14 13:39 | XMS_ITS | Clinical Summary ---
Author Organization [employer] Address [address] [facility] 7t [place] [address] Care Team Providers Care Sprinkler Installer Name Role Phone Radha Sánchez MD Primary Care Provide r Allergies Active Allergy Reactions Criticality Noted Date Comments Apple Flavoring Agent (Non-Screening) 10/21/2023 Diphenhydramine 11/26/2023 Dust Mite Extract 10/21/2023 Peanut Butter Flavoring Agen t (Non-Screening) 05/14/2024 Modified Tree Tyrosine Adsorbate Watermelon Flavoring Agent [...] weeks then (1G) weekly 06/21/19 21 Active Myrbetriq 25 MG 24 hr tablet [...] OR CHEW. 90 capsule 03/31/19 25 Active loratadine (Claritin) 10 MG tabletIndicati ons:Pruritus Take 1 tablet (10 mg) by mouth Once per day. 30 tablet 1 05/15/19 25 025 Active terbinafine (LamISIL AT) 1 % creamIndicatio ns:Tinea cruris Apply topically 2 times daily. 42 g 1 05/15/19 25 Active loratadine (Claritin) 10 MG tablet Take 1 tablet by mouth at bed time. 07/28/19 19 025 Discontinued(Re order (will not trigger notification to Pharmacy)) Active Problems Problem Noted Date Diagnosed Date Dark stools 11/26/2023 Assessment & Plan (11/26/2023 7:51 PM EDT): 07/2023 CBC and chem wnl Benign abd exam ,discomfort over epigastrium reported as burning and chronic ,rectal exam today w normal color stools Hemooccult neg here today Dark stools Likely from peptobimol -has apt w GI -June Ortega for f up per pt next month [...] Encounters Date Type Department Care Team Description 05/14/2024 10:00 AM EST Office Visit [facility] WALK-IN [address] [address] Name, MD Des Pruritus (Primary Dx); Tinea cruris; Recurrent urinary tract infection 05/14/2024 Travel 05/09/2024 Orders Only GENERIC EXTERNAL DATA DEPARTMENT Provider, Generic External Data 04/15/2024 Orders Only GENERIC EXTERNAL DATA DEPARTMENT Provider, Generic External Data 03/31/2024 Refill [facility] [address] [place] [phone] Radha Sánchez MD Dark stools 03/18/2024 Orders Only [facility] MEDICINE [address] [place] [address] Radha Sánchez MD 03/12/2024 Refill [facility] W[facility] [address] [place] [phone] Radha Sánchez MD Left otitis media with effusion 03/01/2024 Refill [facility] WALK[facility]IN CENTER [address] [place] [phone] Radha Sánchez MD Dark stools from Last [...] drink = 0.6 oz pur e alcohol) Depression Answer Date Recorded Patient Health Questionnaire-9 [...] Sign Reading Time Taken Comments Blood Pressure 123/66 05/14/2024 9:13 AM EST Pulse 64 05/14/2024 9:13 AM EST Temperature 35.9 ??C (96.6 ??F) 05/14/2024 9:13 AM ES T Respiratory Rate 20 05/14/2024 9:13 AM EST Oxygen Saturation 99% 05/14/2024 9:13 AM EST Inhaled Oxygen Concentration - - Weight 61 kg (134 lb 8 oz) 05/14/2024 9:13 AM ES T Height 157.5 cm (5' 2 ) 05/14/2024 9:13 AM EST Body Mass Index 24.6 05/14/2024 9:13 AM EST Plan of Treatment Upcoming Encounters Date Type Department Care Team ([facility] st Contact Info) Description 08/03/2024 10:45 AM EDT Office Visit [facility] MEDICINE [address] [place] [address] Radha Sánchez MD [address] [place] [address] Health Maintenance Due Date Last Done Comments CT Colonography 1965 Colonoscopy 1965 Colorectal Cancer Screening 1965 FIT DNA/Cologuard 1965 FIT 1965 FOBT 1965 Sigmoidoscopy 1965 Pneumococcal Vaccine: 50+ Years (1 of 1 - PCV) 2013 COVID-19 Vaccine (2023- season) 2023 Alcohol/Substance Use Screening 07/29/2024 07/30/2023 Depression Screening 07/29/2024 07/30/2023, 07/30/19 SDOH Screening 07/29/2024 07/30/2023 Mammogram 03/18/2025 03/18/2024, 02/07, 02/27/2022, Additional history exists Tobacco Screening 05/14/2025 05/14/2024 Cervical Cancer Screening 10/20/2028 HPV/Cotest 10/20/2028 10/21/2023 [...] Procedure Name Priority Date/Time Associated Diagnosis Comments POCT URINALYSIS DIPSTICK Routine 05/14/2024 10:19 AM EST Recurrent urinary tract infection URINALYSIS, COMPLETE Routine 05/09/2024 12:00 AM EST CULTURE, URINE, ROUTINE Routine 05/09/2024 12:00 AM EST CULTURE, URINE, [...] Recently Relevant to Health Maintenance Results * POCT Urinalysis (05/14/2024 10:19 AM EST) Color, UA Yellow Clarity, UA Clear Glucose, UA Negative Bilirubin, UA Negative Ketones, UA Negative Spec Grav, UA 1.015 Blood, UA Negative Negative, None Detected pH, UA 6.5 Protein, UA Negative Urobilinogen, UA 0.2 Leukocytes, UA Trace Negative, Rare, Trace Nitrite, UA Negative Negative, None Detected Appearance, UA clear QC Media Lot # [id number] Lot# Expiration Date Urine 05/14/2024 10:1 9 AM EST us Des Name POINT OF CARE TEST ENTER/EDIT OR DERABLES Final Result * (ABNORMAL) Urinalysis Complete (05/09/2024 12:00 AM EST) Color Urine Yellow [facility] Appearance Urine Clear [facility] PH 6.5 5.0 - 9.0 [facility] Glucose Urine UA Negative Negative mg/dL [facility] Urine Blood Negative Negative [facility] Specific [place] - Urine 1.015 1.005 - 1.025 [facility] Urine Protein Negative Neg-Trace mg/dL [facility] Urine Ketones Negative Negative mg/dL [facility] Nitrite Urine Negative Negative [facility] Leukocyte Esterase Urine Large (3+)(A) Negative [facility] RBC Urine 0-2 0 - 2 /HPF [facility] Urine WBC 21-50(A) 0 - 5 /HPF [facility] Urine Squamous Epithelial Cell 6-10 0 - 2 /HPF [facility] Urine Bacteria 1+ None Seen [facility] Hyaline Casts, Urine 0-2 0 - 2 /LPF [facility] 05/09/2024 05/09/2024 us Generic External Data Provider LAB URINE ORDERAB LES Final Result Performing Organization Address City/State/[facility] [[email or web address]] Co de Phone Number [facility] [address] [place] [phone] * Culture, Urine, Routine (05/09/2024 12:00 AM EST) Only the most recent of2 resultswithin the time period is included. Urine Urine specimen obtained by clean catch procedure / Unknown 05/09/2024 05/09/2024 Comment:UACC Narrative [facility] - 05/11/2024 11:07 AM EST Urine Culture Report Result Urine Culture 10,000 to 50,000 cfu/ml Urine Culture Mixed bacterial rogelio characteristic of Urine Culture urogenital contamination. Specimen Source: Urine clean catch us Generic External Data Provider LAB MICROBIOLOGY - GENERAL ORDERABLES Final Result [facility] [address] [place] [address] [phone] * BI Mammogram Screening Tomosynthesis Bilateral (03/18/2024 11:15 AM EST) Anatomical Region Laterality Modality Breast Bilateral Mammography 03/18/2024 11:1 5 AM EST Narrative 03/25/2024 4:09 PM EST ? [facility] [place] ? [address] ?[place] [address] ? Mammography Report ? Signed ? Patient: Chago,Alicia ?MR#: [id number] ?? 3 ? : 1965 ?Acct:[id number] ? Age/Sex: 58 / F ?ADM Date: 03/18/24 ? Loc: HO.MAMMO ? Attending Dr: Radha Frias MD ? Ordering Physician: Radha Sánchez MD ?Results: ?? 1Negative ? Date of Service: 03/18/24 ?Follow Up: 1 Year From Orig ?? inal Mammogram ? Procedure(s): MM tomosynthesis screening BI ?? Accession Number(s): [id number] ? cc: Radha Sánchez MD ? EXAMINATION: [...] DD/ 1115 ? TD/TT: 03/18/24 1144 ? Vocational Teacher: ? Procedure Note Jasmyn, Image - 03/25/2024 [facility] [address] [place] [address] [place] [address] Mammography Report Signed Patient: Violeta Anders#: [id number] 3 : 1965Acct:[id number] Age/Sex: 58 / FADM Date: 03/18/24 Loc: ESTRELLITA Attending Dr: Radha Frias MD Ordering Physician: Radha Sánchezesults: 1Negative Date of Service: 03/18/24Follow Up: 1 Year From Orig inal Mammogram Procedure(s): MM tomosynthesis screening BI Accession Number(s): [id number] cc: Radha Sánchez MD EXAMINATION: MM SCREENING [...] by: Rachel Ram DO 03/25/2024 04:06 PM [facility] Dictated By: Rachel Ram DO Signed By: <Electronically signed by Rcahel Ram DO in OV> 03/25/24 1606 DD/ 1115 TD/TT: 03/18/24 1144 Vocational Teacher: Radha Frias MD IMG BI PROCEDURES Michelet kiara Result - Final * ThinPrep Imaging Pap and HPV mRNA E6/E7 (10/21/2023 12:00 AM EDT) HPV nRNA E6/E7 Not Detected Not Detected [facility] Comment:Methodology: Transcr iption-Mediated AmplificationThis assay detects E6/E7 viral messenger RNA (mRNA) from 14high-risk HPV types (16,18,31,33,35,39,45,51,52,56,58,59,66,68).Cervical sources are required for HPV testing.If a vaginal source from a patient who has had atotal hysterectomy with removal of cervix wassubmitted, please contact the testing laboratoryfor alternative testing options.For additional information, please refer tohttp://education.questdiagnostics.com/faq/MYC794z1(This link if provided for information/educational purposes only.)THIS TEST WAS PERFORMED AT:[email or web address] [address] [phone] VILLANUEVA MD SOURCE: SEE NOTE [facility] Comment:None given Report Status: [facility] Clinical Information: SEE NOTE [facility] Comment:None given LMP: SEE NOTE [facility] Comment:NONE GIVEN Prev. PAP: SEE NOTE [facility] Comment:NONE GIVEN Prev. BX: SEE NOTE [facility] Comment:NONE GIVEN Statement Of Adequacy: SEE NOTE [facility] Comment:Satisfactory for kenny luation.Endocervical/transformation zone componentpresent.Partially obscuring inflammationPartially obscuring blood General Categorization: [facility] Interpretation/Result: SEE NOTE [facility] Comment:Cytology Results: Ne gative for intraepitheliallesion or malignancy. Cytology Comment SEE NOTE [facility] Comment:This Pap test has be en evaluated with computerassisted technology. Bottom Turner: SEE NOTE [facility] Comment:RPR, CT (ASCP) CT sc reening location: [place] [address] Review Bottom Turner: [facility] Pathologist [facility] PAP Infection [facility] See Note SEE NOTE [facility] Comment:EXPLANATORY NOTE:The Pap is a screening test for cervical cancer. It isnot a diagnostic test and is subject to false negativeand false positive results. It is most reliable when asatisfactory sample, regularly obtained, is submittedwith relevant clinical findings and history, and whenthe Pap result is evaluated along with historic andcurrent clinical information. 10/21/2023 10/21/2023 Narrative [facility] - 10/26/2023 10:54 AM EDT SEE SCANNED RESULTS IN EMR us Radha Frias MD LAB PATHOLOGY ORDERAB LES Final Result [facility] [address] [place] [phone] * Hepatitis C Antibody with Reflex to HCV, RNA, Quantitative, Real-Time PCR (07/31/2023 2:06 PM EDT) Hepatitis C Antibody Nonreactive Nonreactive [facility] Comment:Antibodies to HCV no t detected; does not exclude early acuteHCV infection. Blood Venous blood specimen / Unknown 07/31/2023 2:06 PM EDT 07/31/2023 4:03 PM EDT us Radha Frias MD LAB BLOOD ORDERABLES Final Result Performing Organization Address [facility] [[email or web address]] Co de Phone Number [facility] [address] [place] [address] [phone] * HIV 1/2 ANTIGEN/ANTIBODY,FOURTH GENERATION W/RFL (11/01/2019 10:52 AM EDT) HIV-1/2 ANTIGEN AND ANTIBODIES, 4TH GENERATION W/ REFLEX NON-REACT YELENA NON-REACT YELENA [facility] Comment: HIV-1 antigen and HIV-1/HIV-2 [...] ? For additional information please refer to http://education.LiveLoop/faq/PSR614 (This link is being provided for informational/ educational purposes only.) ? The performance of this assay has not been clinically validated in patients less than 2 years old. ?? 11/01/2019 10:5 2 AM EDT us Radha Frias MD LAB BLOOD ORDERABLES Final Result [facility] [address] from Last 3 Months or Most Recently Relevant to Health Maintenance Insurance [facility] Care Teams Sprinkler Installer Relationship Specialty Start Date End Date Radha Sánchez MD [address] [place] [phone] PCP - General Family Medicine 11/18/17
--- OUTSIDE RECORDS SUMMARY | 2024-05-14 13:39 | XMS_ITS | Encounter Summary ---
Author Organization [employer] Address [address] [place] [address] Care Team Providers Care Tapering Machine Operator Name Role Phone Radha Sánchez MD Primary Care Provide r Encounter Details Date Type Department Care Team ([facility] st Contact Info) Description 12/17/2022 Abstract [facility] [address] [place] [address] Radha Sánchez MD [address] [place], [place] [phone] Social History Tobacco Use Types Packs/Day Years [...] Description 08/03/2024 10:45 AM EDT Office Visit [facility] [address] [place] [address] Radha Sánchez MD [address] [place] [address] documented as of this encounter Visit Diagnoses Not on filedocumented in this encounter Care Teams Tapering Machine Operator Relationship Specialty Start Date End Date Radha Sánchez MD [address] [place] [phone] PCP - General Family Medicine 11/18/17 documented as of this encounter
--- OUTSIDE RECORDS SUMMARY | 2024-05-14 13:39 | XMS_ITS | Encounter Summary ---
Author Organization [employer] Address [address] [place] [address] Care Team Providers Care Trans Router Name Role Phone Radha Sánchez MD Primary Care Provide r Encounter Details Date Type Department Care Team ([facility] Contact Info) Description 04/15/2024 Orders Only GENERIC [...] Description 08/03/2024 10:45 AM EDT Office Visit [facility] [address] [place] [address] Radha Sánchez MD [address] [place] [address] documented as of this encounter Procedures Procedure Name Priority Date/Time Associated Diagnosis Comments CULTURE, URINE, ROUTINE Routine 04/15/2024 8:43 AM EST documented in this encounter Results * Culture, Urine, Routine (04/15/2024 8:43 AM EST) Urine Urine specimen obtained by clean catch procedure / Unknown 04/15/2024 8:43 AM EST 04/15/2024 4:03 PM EST Comment:[facility] - 04/17/2024 11:21 AM EST Urine Culture Report Result Urine Culture 10,000 to 50,000 cfu/ml Urine Culture Mixed bacterial rogelio characteristic of Urine Culture urogenital contamination. Specimen Source: Urine clean catch us Generic External Data Provider LAB MICROBIOLOGY - GENERAL ORDERABLES Final Result [facility] [address] [place] [address] [phone] documented in this encounter Visit Diagnoses Not on filedocumented in this encounter Additional Health Concerns Assessment Noted Time PHQ-9 Depression Total Score: 0 07/30/19 24 1:10 PM EDT documented as of this encounter Care Teams Trans Router Relationship Specialty Start Date End Date Radha Sánchez MD [address] [place] [address] PCP - General Family Medicine 11/18/17 documented as of this encounter
--- OUTSIDE RECORDS SUMMARY | 2024-05-14 13:39 | XMS_ITS | Encounter Summary ---
Author Organization [employer] Address [address] [place] [address] Care Team Providers Care Ordinary Seaman Name Role Phone Radha Sánchez MD Primary Care Provide r Reason for Visit * Reason Comments Itching Encounter Details Date Type Department Care Team ([facility] Contact Info) Description 05/14/2024 10:00 AM EST Office Visit [facility] [address] [place] [address] Name, MD Des [address] [place] [address] Pruritus (Primary Dx); Tinea cruris; Recurrent urinary tract infection Social History Tobacco Use Types Packs/Day Years [...] AM EDT documented as of this encounter Last Filed Vital Signs Vital Sign Reading [...] Mass Index 24.6 05/14/2024 9:13 AM EST documented in this encounter Progress Notes * Des Pink MD - 05/14/2024 10:00 AM EST Subjective Patient ID: Alicia Anders is a 59 y.o. female who presents for Itching. Patient comes for a sick visit. She complains of 3 days of generalized pruritus. She does not have a rash. No new medications. No jaundice. No history of kidney problems. Patient complains of several months of bilateral groin itch. Patient complains of chronic urinary frequency. She has a history of overactive bladder and recurrent UTIs. She denies any dysuria, no fevers or chills. She is treated with Vesicare and follows with urology. Urinalysis done 3 days ago by urologist showed increase WBC count. Urine culture was unremarkable. Review of Systems Constitutional: Negative for chills and fever. HENT: Negative for sore throat. Respiratory: Negative for cough, shortness of breath and wheezing. Cardiovascular: Negative for chest pain, palpitations and leg swelling. Gastrointestinal: Negative for abdominal pain. Genitourinary: Positive for frequency. Negative for dysuria. Visit Vitals BP 123/66 (BP Location: Right arm, Patient Position: Sitting, BP Cuff Size: Adult) Pulse 64 Temp 96.6 ??F (35.9 ??C) (Temporal) Resp 20 Ht 5' 2 (1.575 m) Wt 134 lb 8 oz (61 kg) SpO2 99% BMI 24.60 kg/m?? Smoking Status Former BSA 1.63 m?? Objective Physical Exam Constitutional: Appearance: She is not toxic-appearing. Cardiovascular: Rate and Rhythm: Normal rate and regular rhythm. Pulmonary: Effort: Pulmonary effort is normal. No respiratory distress. Abdominal: Tenderness: There is no abdominal tenderness. Skin: Comments: Mild groin redness. She does not have any rash elsewhere. Assessment/Plan Diagnoses and all orders for this visit: Pruritus Comments: I recommended trial of loratadine. Check CMP. Topical Lamisil for the groin itch that is suggestiveof tinea cruris. Orders: - Comprehensive Metabolic Panel; Future - loratadine (Claritin) 10 MG tablet; Take 1 tablet (10 mg) by mouth Once per day. - terbinafine (LamISIL AT) 1 % cream; Apply topically 2 times daily. Recurrent urinary tract infection Comments: I recommended to recheck urinalysis and urine culture. Orders: - Urinalysis, Complete, with Reflex to Culture; Future documented in this encounter Miscellaneous Notes * Addendum Note - Stfeani Moy MA - 05/14/2024 10:00 AM ESTAddended by: STEFANI MOY on: 05/14/2024 10:20 AM Modules accepted: Orders documented in this encounter Plan of Treatment Upcoming Encounters Date Type Department Care Team (Late st Contact Info) Description 08/03/2024 10:45 AM EDT Office Visit [facility] [address] [facility] [place] [address] Radha Sánchez MD [address] [place] [address] Scheduled Orders Name Type Priority Associated Diagnoses Orde r Schedule Comprehensive Metabolic Panel Lab Routine Pruritus Expected: 05/14/2024 (Approximate), Expires: 05/14/2025 Urinalysis, Complete, with Reflex to Culture Lab Routine Recurrent urinary tract infection Expected: 05/14/2024 (Approximate), Expires: 05/14/2025 Culture, Urine, Routine Microbiology Routine Recurrent urinary tract infection Ordered: 05/14/2024 documented as of this encounter Procedures Procedure Name Priority Date/Time Associated Diagnosis Comments POCT URINALYSIS DIPSTICK Routine 05/14/2024 10:19 AM EST Recurrent urinary tract infection documented in this encounter Results * POCT Urinalysis (05/14/2024 10:19 AM [...] 05/14/2024 10:1 9 AM EST us Des Pink MD POINT OF CARE TEST ENTER/EDIT OR DERABLES Final Result documented in this encounter Visit Diagnoses Diagnosis Pruritus- Primary Unspecified pruritic disorder Tinea cruris Dermatophytosis of groin and perianal area Recurrent urinary tract infection Urinary tract infection, site not specified documented in this encounter Additional Health Concerns Assessment Noted Time PHQ-9 Depression Total Score: 0 07/30/19 24 1:10 PM EDT documented as of this encounter Care Teams Ordinary Seaman Relationship Specialty Start Date End Date Radha Sánchez MD [address] [place] [phone] PCP - General Family Medicine 11/18/17 documented as of this encounter
--- OUTSIDE RECORDS SUMMARY | 2024-05-14 13:39 | XMS_ITS | Encounter Summary ---
Author Organization [employer] Address [address] [facility] [address] [place] [address] Care Team Providers Care Manager Finance Name Role Phone Radha Sánchez MD Primary Care Provide r Reason for Visit * Reason Comments Med Change Request Encounter Details Date Type Department Care Team ([facility] st Contact Info) Description 12/31/2023 Refill [facility] [address] [place] [address] Radha Bhatia MD [address] [place] [address] Dark stools Social History Tobacco Use Types [...] 10:45 AM EDT Office Visit [facility] [address] [place] [phone] Radha Sánchez MD [address] [place] [address] documented as of this encounter Visit Diagnoses Diagnosis Dark stools Nonspecific abnormal finding in stool contents documented in this encounter Additional Health Concerns Assessment Noted Time PHQ-9 Depression Total Score: 0 07/30/19 24 1:10 PM EDT documented as of this encounter Care Teams Manager Finance Relationship Specialty Start Date End Date Radha Sánchez MD [address] [place] [phone] PCP - General Family Medicine 11/18/17 documented as of this encounter
--- OUTSIDE RECORDS SUMMARY | 2024-05-14 13:39 | XMS_ITS | Encounter Summary ---
Author Organization [employer] Address [address] [place] [address] Care Team Providers Care Bindery Cutter Operator Name Role Phone Radha Sánchez MD Primary Care Provide r Encounter Details Date Type Department Care Team (Latest Contact Info) Description 05/14/2024 Travel Social History Tobacco Use Types Packs/Day Years [...] 08/03/2024 10:45 AM EDT Office Visit [facility] [address] [place] [address] Radha Sánchez MD [address] [place] [phone] documented as of this encounter Visit Diagnoses Not on filedocumented in this encounter Additional Health Concerns Assessment Noted Time PHQ-9 Depression Total Score: 0 07/30/19 24 1:10 PM EDT documented as of this encounter Care Teams Bindery Cutter Operator Relationship Specialty Start Date End Date Radha Sánchez MD [address] [place] [id number] PCP - General Family Medicine 11/18/17 documented as of this encounter
--- OUTSIDE RECORDS SUMMARY | 2024-05-14 13:39 | XMS_ITS | Encounter Summary ---
Author Organization [employer] Address [address] [place] [address] Care Team Providers Care Mastic Floor Layer Name Role Phone Radha Sánchez MD Primary Care Provide r Encounter Details Date Type Department Care Team ([facility] Contact Info) Description 05/09/2024 Orders Only [...] Description 08/03/2024 10:45 AM EDT Office Visit [facility] [address] [place] [address] Radha Sánchez MD [address] [place] [address] documented as of this encounter Procedures Procedure Name Priority Date/Time Associated Diagnosis Comments URINALYSIS, COMPLETE Routine 05/09/2024 12:00 AM EST CULTURE, URINE, ROUTINE Routine 05/09/2024 12:00 AM EST documented in this encounter Results * Culture, Urine, Routine (05/09/2024 12:00 AM EST) Urine Urine specimen obtained by clean catch procedure / Unknown 05/09/2024 05/09/2024 Comment:[facility] Narrative [facility] - 05/11/2024 11:07 AM EST Urine Culture Report Result Urine Culture 10,000 to 50,000 cfu/ml Urine Culture Mixed bacterial rogelio characteristic of Urine Culture urogenital contamination. Specimen Source: Urine clean catch us Generic External Data Provider LAB MICROBIOLOGY - GENERAL ORDERABLES Final Result [facility] [address] [place] [address] [phone] * (ABNORMAL) Urinalysis Complete (05/09/2024 12:00 AM EST) Color Urine Yellow [facility] Appearance Urine Clear [facility] PH 6.5 5.0 - 9.0 [facility] Glucose Urine UA Negative Negative mg/dL [facility] Urine Blood Negative Negative [facility] Specific [place] - Urine 1.015 1.005 - 1.025 [facility] Urine Protein Negative Neg-Trace mg/dL [facility] Urine Ketones Negative Negative mg/dL [facility] Nitrite Urine Negative Negative [facility] Leukocyte Esterase Urine Large (3+)(A) Negative [facility] RBC Urine 0-2 0 - 2 /HPF [facility] Urine WBC 21-50(A) 0 - 5 /HPF [facility] Urine Squamous Epithelial Cell 6-10 0 - 2 /HPF [facility] Urine Bacteria 1+ None Seen [facility] Hyaline Casts, Urine 0-2 0 - 2 /LPF [facility] 05/09/2024 05/09/2024 us Generic External Data Provider LAB URINE ORDERAB LES Final Result [facility] [address] [place] [address] [phone] documented in this encounter Visit Diagnoses Not on filedocumented in this encounter Additional Health Concerns Assessment Noted Time PHQ-9 Depression Total Score: 0 07/30/19 24 1:10 PM EDT documented as of this encounter Care Teams Mastic Floor Layer Relationship Specialty Start Date End Date Radha Sánchez MD [address] [place] [address] PCP - General Family Medicine 11/18/17 documented as of this encounter
== END 2024-05-14 13:35 | disposition home or self-care (01) ==
LOC: HO.LNP 13:34
PROVIDERS: Visit Provider Internal Medicine Geriatric Medicine
DX: N39.0 Urinary tract infection, site not specified (principal)
CPT/HCPCS: 87086

== ENCOUNTER 2024-06-10 10:29 | Outpatient (AMB) | payer OTHER, SELFPAY ==
[2024-06-10 10:33] VITALS: BP 108/54; PULSE 76; O2SAT 97; BMI 25.2
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
--- OUTSIDE RECORDS SUMMARY | 2024-06-10 11:58 | XMS_ITS | Encounter Summary ---
Author Organization [employer] Address [address] [facility] [address] [place] [address] Care Team Providers Care Biology Lecturer Name Role Phone Radha Sánchez MD Primary Care Provide r Reason for Visit * Reason Comments Med Change Request Encounter Details Date Type Department Care Team ([facility] st Contact Info) Description 12/31/2023 Refill [facility] [address] [place] [address] Radha Bhatia MD [address] [place] [address] Dark stools Social History Tobacco Use Types [...] Description 08/03/2024 10:45 AM EDT Office Visit [facility] [address] [place] [phone] Radha Sánchez MD [address] [place] [address] documented as of this encounter Visit Diagnoses Diagnosis Dark stools Nonspecific abnormal finding in stool contents documented in this encounter Additional Health Concerns Assessment Noted Time PHQ-9 Depression Total Score: 0 07/30/19 24 1:10 PM EDT documented as of this encounter Care Teams Biology Lecturer Relationship Specialty Start Date End Date Radha Sánchez MD [address] [place] [id number] PCP - General Family Medicine 11/18/17 documented as of this encounter
--- OUTSIDE RECORDS SUMMARY | 2024-06-10 11:58 | XMS_ITS | Encounter Summary ---
Author Organization [employer] Address [address] [place] [address] Care Team Providers Care Material Expeditor Name Role Phone Radha Sánchez MD Primary Care Provide r Encounter Details Date Type Department Care Team ([facility] st Contact Info) Description 06/07/2024 Orders Only [facility] [address] [place], [place] [phone] ProviderTherese MD Social History Tobacco Use Types Packs/Day Years [...] Description 08/03/2024 10:45 AM EDT Office Visit [facility] [address] [place], [place] [phone] Radha Sánchez MD [address] [place] [address] documented as of this encounter Procedures Procedure Name Priority Date/Time Associated Diagnosis Comments HM COLONOSCOPY Routine 07/09/2023 9:36 AM EDT documented in this encounter Results * Hm Colonoscopy (07/09/2023 9:36 AM EDT) Colonoscopy Normal Normal Narrative Carrie Jean - 07/09/2023 9:36 AM EDT Repeat colonoscopy in 10 years see external hospital admission note on 07/09/2023 us Historical Provider HEALTH MAINTENANCE Edited Result - Final documented in this encounter Visit Diagnoses Not on filedocumented in this encounter Additional Health Concerns Assessment Noted Time PHQ-9 Depression Total Score: 0 07/30/19 24 1:10 PM EDT documented as of this encounter Care Teams Material Expeditor Relationship Specialty Start Date End Date Radha Sánchez MD [address] [place], [place] [phone] PCP - General Family Medicine 11/18/17 documented as of this encounter
--- OUTSIDE RECORDS SUMMARY | 2024-06-10 11:58 | XMS_ITS | Encounter Summary ---
Author Organization [employer] Address [address] [place] [address] Care Team Providers Care Army Helicopter Pilot Name Role Phone Radha Sánchez MD Primary Care Provide r Encounter Details Date Type Department Care Team ([facility] st Contact Info) Description 12/17/2022 Abstract [facility] [address] [place], [place] [phone] Radha Sánchez MD [address] [place], [place] [phone] Social History Tobacco Use Types Packs/Day Years [...] Description 08/03/2024 10:45 AM EDT Office Visit [facility] [address] [place] [address] Radha Sánchez MD [address] [place] [address] documented as of this encounter Visit Diagnoses Not on filedocumented in this encounter Care Teams Army Helicopter Pilot Relationship Specialty Start Date End Date Radha Sánchez MD [address] [place] [phone] PCP - General Family Medicine 11/18/17 documented as of this encounter
--- OUTSIDE RECORDS SUMMARY | 2024-06-10 11:58 | XMS_ITS | Encounter Summary ---
Author Organization [employer] Address [address] [facility] [address] [place] [address] Care Team Providers Care Cut Out Machine Operator Name Role Phone Radha Sánchez MD Primary Care Provide r Reason for Visit * Reason Onset Date Comments Appointment 04/21/2022 Encounter Details Date Type Department Care Team ([facility] st Contact Info) Description 04/21/2022 Telephone [facility] [address] [place] [address] Radha Sánchez MD [address] [place], [place] [phone] Appointment Social History Tobacco Use Types Packs/Day [...] is on MLOA. Please contact pt at [phone] documented in this encounter Plan of Treatment Upcoming Encounters Date Type Department Care Team (Late st Contact Info) Description 08/03/2024 10:45 AM EDT Office Visit [facility] [address] [place] [address] Radha Sánchez MD [address] [place] [address] documented as of this encounter Visit Diagnoses Not on filedocumented in this encounter Care Teams Cut Out Machine Operator Relationship Specialty Start Date End Date Radha Sánchez MD [address] [place] [phone] PCP - General Family Medicine 11/18/17 documented as of this encounter
--- OUTSIDE RECORDS SUMMARY | 2024-06-10 11:58 | XMS_ITS | Clinical Summary ---
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 90 capsule 03/31/19 25 Active terbinafine (LamISIL AT) 1 % creamIndicatio ns:Tinea cruris Apply topically 2 times daily. 42 g 1 05/15/19 25 Active loratadine (Claritin) 10 MG tabletIndicati ons:Pruritus TAKE 1 TABLET BY MOUTH EVERY DAY 90 tablet 06/09/19 25 Active loratadine (Claritin) 10 MG tablet Take 1 tablet by mouth at bed time. 07/28/19 19 025 Discontinued(Re order (will not trigger notification to Pharmacy)) loratadine (Claritin) 10 MG tabletIndicati ons:Pruritus Take 1 tablet (10 mg) by mouth Once per day. 30 tablet 1 05/15/19 25 025 Discontinued Active Problems Problem Noted Date Diagnosed Date Dark stools 11/26/2023 Assessment & Plan (11/26/2023 7:51 PM EDT): 07/2023 CBC and chem wnl Benign abd exam ,discomfort over epigastrium reported as burning and chronic ,rectal exam today w normal color stools Hemooccult neg here today Dark stools Likely from peptobimol -has apt w GI -Jenna Ortega for f up per pt next [...] Encounters Date Type Department Care Team Description 06/07/2024 Refill [facility] [address] [place] [phone] Name, MD Des Pruritus 06/07/2024 Orders Only [facility] PED[facility] [address] [place] [address] ProviderTherese MD 05/14/2024 10:00 AM EST Office Visit [facility] [address] [place] [address] [phone] Name, MD Des Pruritus (Primary Dx); Tinea cruris; Recurrent urinary tract infection 05/14/2024 Orders Only [facility] MEDICINE [address] [place] [address] [phone] Name, MD Des 05/14/2024 Travel 05/09/2024 Orders Only GENERIC EXTERNAL DATA DEPARTMENT Provider, Generic External Data 04/15/2024 Orders Only GENERIC EXTERNAL DATA DEPARTMENT Provider, Generic External Data 03/31/2024 Refill [facility] [address] [place] [phone] Radha Sánchez MD Dark stools 03/18/2024 Orders Only [facility] MEDICINE [address] [place] [phone] Radha Sánchez MD 03/12/2024 Refill [facility] [address] [place] [phone] Radha Sánchez MD Left otitis media with effusion from Last 3 Months Immunizations Name Administration [...] 08/03/2024 10:45 AM EDT Office Visit [facility] MEDICINE [address] [place] [address] Radha Sánchez MD [address] [place] [address] Health Maintenance Due Date Last Done Comments CT Colonography 1965 FIT DNA/Cologuard 1965 FIT 1965 FOBT 1965 Sigmoidoscopy 1965 Pneumococcal Vaccine: 50+ Years (1 of 1 - PCV) 2013 COVID-19 Vaccine (2023- season) 2023 Alcohol/Substance Use Screening 07/29/2024 07/30/2023 Depression Screening 07/29/2024 07/30/2023, 07/30/19 24 SDOH Screening 07/29/2024 07/30/2023 Mammogram 03/18/2025 03/18/2024, 1210/2022, 02/27/2022, Additional history exists Tobacco Screening 05/14/2025 05/14/2024 Cervical Cancer Screening 10/20/2028 HPV/Cotest 10/20/2028 10/21/2023 Pap Smear 10/20/2028 10/21/2023, 07/23/2020 DTaP/Tdap/Td Vaccines (2 - Td or Tdap) 01/17/2030 01/18/2020, 09/06/2009 Colonoscopy 07/08/2033 07/09/2023 Colorectal Cancer Screening 07/08/2033 HIV Screening Completed 11/01/2019 Zoster Vaccines Completed [...] 10:19 AM EST Recurrent urinary tract infection CULTURE, URINE, ROUTINE Routine 05/14/2024 12:00 AM EST URINALYSIS, COMPLETE Routine 05/09/2024 12:00 AM EST [...] PM EDT Encounter for preventive health examination HM COLONOSCOPY Routine 07/09/2023 9:36 AM EDT HIV 1/2 ANTIGEN/ANTIBODY, FOURTH GENERATION W/RFL Routine [...] TEST ENTER/EDIT OR DERABLES Final Result * Culture, Urine, Routine (05/14/2024 12:00 AM EST) Only the most recent of3 resultswithin the time period is included. Urine Urine specimen obtained by clean catch procedure / Unknown 05/14/2024 05/14/2024 Comment:UACC Narrative [facility] - 05/15/2024 11:10 AM EDT Urine Culture No growth. Specimen Source: Urine clean catch us Des Pink MD LAB MICROBIOLOGY - GENERAL ORDER AMRIT Final Result [facility] [address] [place] [phone] * (ABNORMAL) Urinalysis Complete (05/09/2024 12:00 AM EST) Color Urine Yellow [facility] Appearance Urine Clear [facility] PH 6.5 5.0 - 9.0 [facility] Glucose Urine UA Negative Negative mg/dL [facility] Urine Blood Negative Negative [facility] Specific [place] - Urine 1.015 1.005 - 1.025 [facility] Urine Protein Negative Neg-Trace mg/dL [facility] Urine Ketones Negative Negative mg/dL [facility] Nitrite Urine Negative Negative [facility] Leukocyte Esterase Urine Large (3+)(A) Negative [facility] RBC Urine 0-2 0 - 2 /HPF [facility] Urine WBC 21-50(A) 0 - 5 /HPF [facility] Urine Squamous Epithelial Cell 6-10 0 - 2 /HPF [facility] Urine Bacteria 1+ None Seen [facility] Hyaline Casts, Urine 0-2 0 - 2 /LPF [facility] 05/09/2024 05/09/2024 us Generic External Data Provider LAB URINE ORDERAB LES Final Result Performing Organization Address City/State/[facility] Co de Phone Number [facility] [address] [place] [address] [phone] * BI Mammogram Screening Tomosynthesis Bilateral (03/18/2024 11:15 AM EST) Anatomical Region Laterality Modality Breast Bilateral Mammography 03/18/2024 11:1 5 AM EST Narrative 03/25/2024 4:09 PM EST ? [facility] [place] ? [address] ?[place] [address] ? Mammography Report ? Signed ? Patient: Chago,Alicia ?MR#: [id number] ?? 3 ? : 1965 ?Acct:[id number] ? Age/Sex: 58 / F ?ADM Date: 01/10/25 ? Loc: HO.MAMMO ? Attending Dr: Radha Frias MD ? Ordering Physician: Radha Sánchez MD ?Results: ?? 1Negative ? Date of Service: 03/18/24 ?Follow Up: 1 Year From Orig ?? inal Mammogram ? Procedure(s): MM tomosynthesis screening BI ?? Accession Number(s): [id number] ? cc: Radha Sánchez MD ? EXAMINATION: [...] next mammogram. ? Electronically signed by: ??Rachel Zarinatheresa DO ??03/25/2024 04:06 PM EST ?? RP ? Dictated By: ?Rachel Ram DO ? Signed By: ?<Electronically signed by Rachel Ram, DO in OV> ? 03/25/24 1606 ? DD/ 1115 ? TD/TT: 03/18/24 1144 ? Percolator Operator: ? Procedure Note Jasmyn, Image - 03/25/2024 [facility] [facility] [address] [place] [address] [place] [address] Mammography Report Signed Patient: Violeta Anders#: [id number] 3 : 1965Acct:[id number] Age/Sex: 58 / FADM Date: 03/18/24 Loc: HO.MAMMO Attending Dr: Radha Frias MD Ordering Physician: Radha Sánchez MDResults: 1Negative Date of Service: 03/18/24Follow Up: 1 Year From Orig ina Mammogram Procedure(s): MM tomosynthesis screening BI Accession Number(s): [id number] cc: Radha Sánchez MD EXAMINATION: MM SCREENING [...] for their next mammogram. Electronically signed by: aRchel Ram DO 03/25/2024 04:06 PM EST Dictated By: Rachel Ram DO Signed By: <Electronically signed by Rachel Ram DO in OV> 03/25/24 1606 DD/ 1115 TD/TT: 03/18/24 1144 Percolator Operator: Radha Frias MD IMG BI PROCEDURES Michelet [...] alternative testing options.For additional information, please refer tohttp://education.NextNine/faq/HBM077m7(This link if provided for information/educational purposes only.)THIS TEST WAS PERFORMED AT:[employer] [address] [phone] VILLANUEVA MD SOURCE: SEE NOTE [facility] Comment:None given Report Status: [facility] Clinical Information: SEE NOTE [facility] Comment:None given LMP: SEE NOTE [facility] Comment:NONE GIVEN Prev. PAP: SEE NOTE [facility] Comment:NONE GIVEN Prev. BX: SEE NOTE [facility] Comment:NONE GIVEN Statement Of Adequacy: SEE NOTE [facility] Comment:Satisfactory for kenny luation.Endocervical/transformation zone componentpresent.Partially obscuring inflammationPartially obscuring blood General Categorization: [facility] Interpretation/Result: SEE NOTE [facility] Comment:Cytology Results: Ne gative for intraepitheliallesion or malignancy. Cytology Comment SEE NOTE [facility] Comment:This Pap test has be en evaluated with computerassisted technology. Plant Supervisor: SEE NOTE [facility] Comment:RPR, CT (ASCP) CT sc reening location: [address] [address] Review Plant Supervisor: [facility] Pathologist [facility] PAP Infection [facility] See Note SEE NOTE [facility] [...] ORDERAB LES Final Result Performing Organization Address [facility]/ZIP Co de Phone Number [facility] [address] [place] [address] [phone] * Hepatitis C Antibody with Reflex to HCV, RNA, Quantitative, Real-Time PCR (07/31/2023 2:06 PM EDT) Hepatitis C Antibody Nonreactive Nonreactive [facility] Comment:Antibodies to HCV no t detected; does not exclude early acuteHCV infection. Blood Venous blood specimen / Unknown 07/31/2023 2:06 PM EDT 07/31/2023 4:03 PM EDT us Radha Frias MD LAB BLOOD ORDERABLES Final Result Performing Organization Address [facility]/ZIP Co de Phone Number [facility] [address] [place] [address] [phone] * Hm Colonoscopy (07/09/2023 9:36 AM EDT) Colonoscopy Normal Normal Narrative Carrie Jean - 07/09/2023 9:36 AM EDT Repeat colonoscopy in 10 years see external hospital admission note on 07/09/2023 Historical Provider HEALTH MAINTENANCE Edited Result - Final * HIV 1/2 ANTIGEN/ANTIBODY,FOURTH GENERATION W/RFL (11/01/2019 10:52 AM EDT) HIV-1/2 ANTIGEN AND ANTIBODIES, 4TH GENERATION W/ REFLEX NON-REACT YELENA NON-REACT YELENA [facility] Comment: HIV-1 antigen and HIV-1/HIV-2 [...] ? For additional information please refer to http://education.NextNine/faq/LCB620 (This link is being provided for informational/ educational purposes only.) ? The performance of this assay has not been clinically validated in patients less than 2 years old. ?? 11/01/2019 10:5 2 AM EDT Radha Frias MD LAB BLOOD ORDERABLES Final Result Performing Organization Address City/State/[facility] Co de Phone Number [facility] [address] from Last 3 Months or Most Recently Relevant to Health Maintenance Insurance [facility] Care Teams Dairy Husbandry Worker Relationship Specialty Start Date End Date Radha Sánchez MD [address] [place] [address] PCP - General Family Medicine 11/18/17
--- OUTSIDE RECORDS SUMMARY | 2024-06-10 11:58 | XMS_ITS | Encounter Summary ---
Author Organization [employer] Address [address] [facility] [address] [place] [address] Care Team Providers Care Kiosk Sales Representative Name Role Phone Radha Sánchez MD Primary Care Provide r Reason for Visit * Reason Comments Med Change Request Encounter Details Date Type Department Care Team ([facility] st Contact Info) Description 06/07/2024 Refill [facility] [address] [place], [place] [phone] Name, MD Des [address] [place] [address] Pruritus Social History Tobacco Use Types Packs/Day Years [...] Description 08/03/2024 10:45 AM EDT Office Visit [facility] MED[facility] [address] [place] [phone] Radha Sánchez MD [address] [place] [address] documented as of this encounter Visit Diagnoses Diagnosis Pruritus Unspecified pruritic disorder documented in this encounter Additional Health Concerns Assessment Noted Time PHQ-9 Depression Total Score: 0 07/30/19 24 1:10 PM EDT documented as of this encounter Care Teams Kiosk Sales Representative Relationship Specialty Start Date End Date Radha Sánchez MD [address] [place] [phone] PCP - General Family Medicine 11/18/17 documented as of this encounter
== END 2024-06-10 11:34 | disposition home or self-care (01) ==
LOC: HO.HGI 10:30
PROVIDERS: PCP Internal Medicine; Visit Provider Nurse Practitioner
DX: K21.9 Gastro-esophageal reflux disease without esophagitis (principal); K22.70 Barrett's esophagus without dysplasia; G31.84 Mild cognitive impairment of uncertain or unknown etiology
CPT/HCPCS: 99213

== ENCOUNTER → 2024-06-10 10:29 | Outpatient (BNVA) | payer OTHER, SELFPAY | PROVIDERS: PCP Internal Medicine; Visit Provider Nurse Practitioner | DX: K21.9 Gastro-esophageal reflux disease without esophagitis (principal); K22.70 Barrett's esophagus without dysplasia; K22.10 Ulcer of esophagus without bleeding; R14.0 Abdominal distension (gaseous); G31.84 Mild cognitive impairment of uncertain or unknown etiology | CPT/HCPCS: 99212 ==

== ENCOUNTER 2024-07-14 13:19 | Outpatient (AMB) | payer OTHER, SELFPAY ==
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
--- OUTSIDE RECORDS SUMMARY | 2024-07-14 14:25 | XMS_ITS | Encounter Summary ---
Author Organization [employer] Address [address] [address] [place] [address] Care Team Providers Care Die Finisher Forging Name Role Phone Radha Sánchez MD Primary Care Provide r Encounter Details Date Type Department Care Team (Late st Contact Info) Description 06/07/2024 Orders Only [facility] [address] [place], [place] [phone] ProviderTherese MD Social History Tobacco Use Types [...] Office Visit [facility] [address] [place], [place] [phone] Radha Sánchez MD [address] [place], [place] [phone] documented as of this encounter Procedures Procedure [...] documented as of this encounter Care Teams Die Finisher Forging Relationship Specialty Start Date End Date Radha Sánchez MD [address] [place], [place] [phone] PCP - General Family Medicine 11/18/17 documented as of this encounter
--- OUTSIDE RECORDS SUMMARY | 2024-07-14 14:25 | XMS_ITS | Clinical Summary ---
Author Organization [employer] Address 75 [facility] 7t [place] [address] Care Team Providers Care Medical Record Clerk Name Role Phone Radha Sánchez MD Primary [...] 2 weeks then (1G) weekly 1 Active Myrbetriq 25 MG 24 hr tablet [...] CRUSH OR CHEW. 90 capsule 5 Active terbinafine (LamISIL AT) 1 % creamIndication s:Tinea cruris Apply topically 2 times daily. 42 g 1 5 Active loratadine (Claritin) 10 MG tabletIndicatio ns:Pruritus TAKE 1 TABLET BY MOUTH EVERY DAY 90 tablet 5 Active bacitracin 500 UNIT/GM ointment Apply topically 2 times daily. 14 g 5 Active sulfamethoxazol e-trimethoprim (Bactrim DS) 800-160 MG tablet Take 1 tablet by mouth 2 times daily for 7 days. 14 tablet 5 07/19/19 25 Active Active Problems Problem Noted Date Diagnosed [...] Encounters Date Type Department Care Team Description 07/11/2024 5:00 PM EDT Office Visit [facility] [address] [place] [phone] Tasha Espinoza MD Cellulitis of left lower extremity (Primary Dx) 06/07/2024 Refill [facility] [address] [place] [address] Name, MD Des Pruritus 06/07/2024 Orders Only [facility] [address] [place] [address] ProviderTherese MD 05/14/2024 10:00 AM EST Office Visit [facility] [address] [place] [address] Name, MD Des Pruritus (Primary Dx); Tinea cruris; Recurrent urinary tract infection 05/14/2024 Orders Only [facility] [address] [place] [address] Apryl, MD Des 05/14/2024 Travel 05/09/2024 Orders Only [...] your housing situation today? I have diane gwen 07/30/[address] you li [...] Sign Reading Time Taken Comments Blood Pressure 132/78 07/11/2024 5:05 PM EDT Pulse 69 07/11/2024 5:05 PM EDT Temperature 36.4 ??C (97.6 ??F) 07/11/2024 5:05 PM ED T Respiratory Rate 18 07/11/2024 5:05 PM EDT Oxygen Saturation 99% 05/14/2024 9:13 AM EST Inhaled Oxygen Concentration - - Weight 63.4 kg (139 lb 12.8 oz) 07/11/2024 5:05 PM EDT Height 157.5 cm (5' 2 ) 07/11/2024 5:05 PM EDT Body Mass Index 25.57 07/11/2024 5:05 PM EDT Plan of Treatment Upcoming Encounters Date Type Department Care Team (Late st Contact Info) Description 08/03/2024 10:45 AM EDT Office Visit [facility] [address] [place] [address] Radha Sánchez MD [address] [place] [address] Health Maintenance Due Date Last Done Comments CT Colonography 1965 FIT DNA/Cologuard 1965 FIT 1965 FOBT 1965 Sigmoidoscopy 1965 Pneumococcal Vaccine: 50+ Years (1 of 1 - PCV) 2013 COVID-19 Vaccine ( - 2023- season) 2023 Alcohol/Substance Use Screening 07/29/2024 07/30/2023 Depression Screening 07/29/2024 07/30/2023, 07/30/19 SDOH Screening 07/29/2024 07/30/2023 Mammogram 03/18/2025 03/18/2024, 02/07, 02/27/2022, Additional history exists Tobacco Screening 07/11/2025 07/11/2024 Cervical Cancer Screening 10/20/2028 HPV/Cotest 10/20/2028 10/21/2023 [...] URINE, ROUTINE Routine 05/09/2024 12:00 AM EST BI MAMMOGRAM SCREENING TOMOSYNTHESIS BILATERAL [...] Media Lot # [id number] Lot# Expiration Date [id number] Urine 05/14/2024 10:1 9 AM EST us Des Pink MD POINT OF CARE TEST ENTER/EDIT OR DERABLES Final Result * Culture, Urine, Routine (05/14/2024 12:00 AM EST) Only the most recent of2 resultswithin the time period is included. Urine Urine specimen obtained by clean catch procedure / Unknown 05/14/2024 05/14/2024 Comment:UACC Narrative [facility] - 05/15/2024 11:10 AM EDT Urine Culture No growth. Specimen Source: Urine clean catch us Des Pink MD LAB MICROBIOLOGY - GENERAL ORDER AMRIT Final Result [facility] [address] [place] [address] [phone] * (ABNORMAL) Urinalysis Complete (05/09/2024 12:00 AM EST) Color Urine Yellow [facility] Appearance Urine Clear [facility] PH 6.5 5.0 - 9.0 [facility] Glucose Urine UA Negative Negative mg/dL [facility] Urine Blood Negative Negative [facility] Specific [place] - Urine 1.015 1.005 - 1.025 [facility] Urine Protein Negative Neg-Trace mg/dL [facility] Urine Ketones Negative Negative mg/dL [facility] Nitrite Urine Negative Negative [facility] Leukocyte Esterase Urine Large (3+)(A) Negative [facility] RBC Urine 0-2 0 - 2 /HPF [facility] Urine WBC 21-50(A) 0 - 5 /HPF [facility] Urine Squamous Epithelial Cell 6-10 0 - 2 /HPF [facility] Urine Bacteria 1+ None Seen [facility] Hyaline Casts, Urine 0-2 0 - 2 /LPF [facility] 05/09/2024 05/09/2024 us Generic External Data Provider LAB URINE ORDERAB LES Final Result [facility] [address] [place] [address] [phone] * BI Mammogram Screening Tomosynthesis Bilateral (03/18/2024 11:15 AM EST) Anatomical Region Laterality Modality Breast Bilateral Mammography 03/18/2024 11:1 5 AM EST Narrative 03/25/2024 4:09 PM EST ? [facility] [place] ? [address] ?[place] [address] ? Mammography Report ? Signed ? Patient: Chago,Alicia ?MR#: [id number] ?? 3 ? : 1965 ?Acct:[id number] ? Age/Sex: 58 / F ?ADM Date: 03/18/24 ? Loc: HO.MAMMO ? Attending Dr: Radha Frias MD ? Ordering Physician: Radha Sánchez MD ?Results: ?? 1Negative ? Date of Service: 03/18/24 ?Follow Up: 1 Year From Orig ?? inal Mammogram ? Procedure(s): MM tomosynthesis screening BI ?? Accession Number(s): [id number] ? cc: Radha Sánchez MD ? EXAMINATION: [...] DD/ 1115 ? TD/TT: 03/18/24 1144 ? Cash Register Servicer: ? Procedure Note Jasmyn, Image - 03/25/2024 [facility] [address] [place] [address] [place] [address] Mammography Report Signed Patient: Violeta Anders#: [id number] 3 : 1965Acct:[id number] Age/Sex: 58 / FADM Date: 03/18/24 Loc: ESTRELLITA Attending Dr: Radha Frias MD Ordering Physician: Radha Sánchezesults: 1Negative Date of Service: 03/18/24Follow Up: 1 Year From Orig inal Mammogram Procedure(s): MM tomosynthesis screening BI Accession Number(s): [id number] cc: Radha Sánchez MD EXAMINATION: MM SCREENING [...] by: Rachel Ram DO 03/25/2024 04:06 PM [facility] Dictated By: Rachel Ram DO Signed By: <Electronically signed by Rachel Ram DO in [place]> 03/25/24 1606 DD/ 1115 TD/TT: 03/18/24 1144 Cash Register Servicer: Radha Frias MD IMG BI PROCEDURES Michelet kiara Result - Final * [facility] Imaging Pap and HPV mRNA E6/E7 (10/21/2023 12:00 AM EDT) HPV nRNA E6/E7 Not Detected Not Detected [facility] Comment:Methodology: Transcr iption-Mediated AmplificationThis assay detects E6/E7 viral messenger RNA (mRNA) from 14high-risk HPV types (16,18,31,33,35,39,45,51,52,56,58,59,66,68).Cervical sources are required for HPV testing.If a vaginal source from a patient who has had atotal hysterectomy with removal of cervix wassubmitted, please contact the testing laboratoryfor alternative testing options.For additional information, please refer tohttp://education.questdiagnostics.com/faq/HNF479g3(This link if provided for information/educational purposes only.)THIS TEST WAS PERFORMED AT:[employer] [address] [phone] VILLANUEVA MD SOURCE: SEE NOTE [facility] Comment:None given Report Status: [facility] Clinical Information: SEE NOTE [facility] Comment:None given LMP: SEE NOTE [facility] Comment:NONE GIVEN Prev. PAP: SEE NOTE [facility] Comment:NONE GIVEN Prev. BX: SEE NOTE [facility] Comment:NONE GIVEN Statement Of Adequacy: SEE NOTE [facility] Comment:Satisfactory for kenny luation.Endocervical/transformation zone componentpresent.Partially obscuring inflammationPartially obscuring blood General Categorization: [facility] Interpretation/Result: SEE NOTE [facility] Comment:Cytology Results: Ne gative for intraepitheliallesion or malignancy. Cytology Comment SEE NOTE [facility] Comment:This Pap test has be en evaluated with computerassisted technology. Clinical Statistical Programmer: SEE NOTE [facility] Comment:RPR, CT (ASCP) CT sc reening location: [place] [address] Review Clinical Statistical Programmer: [facility] Pathologist [facility] PAP Infection [facility] See Note SEE NOTE [facility] Comment:EXPLANATORY NOTE:The Pap is a screening test for cervical cancer. It isnot a diagnostic test and is subject to false negativeand false positive results. It is most reliable when asatisfactory sample, regularly obtained, is submittedwith relevant clinical findings and history, and whenthe Pap result is evaluated along with historic andcurrent clinical information. 10/21/2023 10/21/2023 Narrative [facility] - 10/26/2023 10:54 AM EDT SEE SCANNED RESULTS IN EMR us Radha Frias MD LAB PATHOLOGY ORDERAB LES Final Result [facility] [address] [place] [address] [phone] * Hepatitis C Antibody with Reflex to HCV, RNA, Quantitative, Real-Time PCR (07/31/2023 2:06 PM EDT) Hepatitis C Antibody Nonreactive Nonreactive [facility] Comment:Antibodies to HCV no t detected; does not exclude early acuteHCV infection. Blood Venous blood specimen / Unknown 07/31/2023 2:06 PM EDT 07/31/2023 4:03 PM EDT us Radha Frias MD LAB BLOOD ORDERABLES Final Result Performing Organization Address [facility]/ZIP Co de Phone Number [facility] [address] [place] [address] [phone] * Hm Colonoscopy (07/09/2023 9:36 AM EDT) Colonoscopy Normal Normal Narrative Carrie Jean - 07/09/2023 9:36 AM EDT Repeat colonoscopy in 10 years see external hospital admission note on 07/09/2023 [facility] Provider HEALTH MAINTENANCE Edited Result - Final * HIV 1/2 ANTIGEN/ANTIBODY,FOURTH GENERATION W/RFL (11/01/2019 10:52 AM EDT) HIV-1/2 ANTIGEN AND ANTIBODIES, 4TH GENERATION W/ REFLEX NON-REACT YELENA NON-REACT YELENA [facility] Comment: HIV-1 antigen and HIV-1/HIV-2 [...] ? For additional information please refer to http://education.[employer]/faq/KQK099 (This link is being provided for informational/ educational purposes only.) ? The performance of this assay has not been clinically validated in patients less than 2 years old. ?? 11/01/2019 10:5 2 AM EDT Radha Frias MD LAB BLOOD ORDERABLES Final Result [facility] [address] from Last 3 Months or Most Recently Relevant to Health Maintenance Insurance [facility] < 63 [place] [id number] Care Teams Medical Record Clerk Relationship Specialty Start Date End Date Radha Sánchez MD [address] [place] [address] PCP - General Family Medicine 11/18/17
--- OUTSIDE RECORDS SUMMARY | 2024-07-14 14:25 | XMS_ITS | Encounter Summary ---
Author Organization [employer] Address [address] [facility] [address] 7t [place] [address] Care Team Providers Care Economic Consultant Name Role Phone Radha áSnchez MD Primary Care Provide r Encounter Details Date Type Department Care Team (Late st Contact Info) Description 12/17/2022 Abstract [facility] [address] [place] [address] Radha Sánchez MD [address] [place], [place] [phone] Social History Tobacco Use Types Packs/Day Years [...] Description 08/03/2024 10:45 AM EDT Office Visit [facility] [address] [place] [address] Radha Sánchez MD [address] [place] [address] documented as of this encounter Visit Diagnoses Not on filedocumented in this encounter Care Teams Economic Consultant Relationship Specialty Start Date End Date Radha Sánchez MD [address] [place] [phone] PCP - General Family Medicine 11/18/17 documented as of this encounter
--- OUTSIDE RECORDS SUMMARY | 2024-07-14 14:25 | XMS_ITS | Data Portability ---
Author Organization [place] - [facility], [facility] Address [address] [place] [phone] Care Team Providers Care Pulp Screen Operator Name Role Phone TERENCE TORRES Primary Care Provider [phone] Assessment Encounter Date Assessment Date Assessment LastModified [...] Organization Details Recorded Time Abnormal auditory perception 17090571 Active 024 Nataliya martin [place] - [facility] 15:43:40 Abnormal auditory perception 25109137 Active 024 UYNG GAITAN MD [address] [facility], [place], [phone] , [facility] - [facility] 17:25:03 Problem Notes None recorded. Procedures Surgical History Date Name Laterality Status Provider Name and Address Organization Details Recorded Time 02/22/20 24 Comp Audio with Tymps - 48639 & [address] [facility] 02/22/2024 15:43:22 02/22/20 24 OAE distortion product, comprehensive - [address] [facility] 02/22/2024 15:43:28 tractotomy [address]sequiel Jackson [facility] 02/22/2024 14:52:28 procedure on lung completed Esequiel Jackson [facility] 02/22/2024 14:52:42 procedure on head completed Esequiel Jackson [facility] 02/22/2024 14:53:22 Imaging Results Imaging Date Name Status LastModified by Organiz ation Details LastModified Time 02/23/2024 audiogram completed [facility] Information no t available 02/23/2024 11:15:17 Procedure Notes None recorded. Medical Equipment None Reported. Allergies Allergen ID Allergen Name Allergen Category Reaction Reaction Severity Criticality Documentation Date Start Date Code Code System Note Provider Name and Address Organization Details Recorded Time 726755 Benadryl medicatio n Not available Not available Not available 02/22/202412931 [address] [facility] 14:50:41 563171 house dust allergeni c extract environme nt,medica tion Not available Not available Not available 02/22/2024 95778 [address] [facility] 14:50:55 Medications Name Sig Start Date Stop [...] SNOMED-CT Code Diagnosis ICD10 Code Diagnosis Note 73717 YUNG ABREU MD [facility] [address] [phone] 02/22/2024 14:21:12 02/22/2024 15:59:49 Abnormal auditory perception 09526441 H93.293 Audiologic al evaluation results: Right ear: [...] Recorded Advance Directives Directive None Recorded Payers Insurance Date Sequence Insurance Name Policy Number Policy Saravia Covered Member ID Saravia Member ID Guarantor Name 02/22/2024 1 [facility] - DOS ON OR AFTER 2022 - ONE CARE (MEDICARE REPLACEMENT/ADV ANTAGE - HMO) Alicia Anders [id number] Alicia Anders Notes Date Note Type Note [...] Denies vertigo or imbalance YUNG RIVERA MD [address] [place] [address], [place], [address], [facility] - [facility] 02/22/2024 17:25:24 OBGyn Episode No OBEpisode recorded.
--- OUTSIDE RECORDS SUMMARY | 2024-07-14 14:25 | XMS_ITS | Encounter Summary ---
Author Organization [employer] Address [address] [facility] 7t [place] [address] Care Team Providers Care Catalogue And Special Products Manager Name Role Phone Radha Sánchez MD Primary Care Provide r Reason for Visit * Reason Onset Date Comments Appointment 04/21/2022 Encounter Details Date Type Department Care Team ([facility] st Contact Info) Description 04/21/2022 Telephone [facility] [address] [place] [address] Radha Sánchez MD [address] [place], [place] [phone] Appointment Social History Tobacco Use Types Packs/Day [...] is on MLOA. Please contact pt at [phone] documented in this encounter Plan of Treatment Upcoming Encounters Date Type Department Care Team (Late st Contact Info) Description 08/03/2024 10:45 AM EDT Office Visit [facility] [address] [place], [place] [phone] Radha Sánchez MD [address] [place], [place] [phone] documented as of this encounter Visit Diagnoses Not on filedocumented in this encounter Care Teams Catalogue And Special Products Manager Relationship Specialty Start Date End Date Radha Sánchez MD [address] [place] [address] PCP - General Family Medicine 11/18/17 documented as of this encounter
--- OUTSIDE RECORDS SUMMARY | 2024-07-14 14:25 | XMS_ITS | Encounter Summary ---
Author Organization [employer] Address [address] [facility] 7t [place] [address] Care Team Providers Care Ocean Freight Agent Name Role Phone Radha Sánchez MD Primary Care Provide r Reason for Visit * Reason Comments Med Change Request Encounter Details Date Type Department Care Team ([facility] st Contact Info) Description 12/31/2023 Refill [facility] [address] [place] [address] Radha Bhatia MD [address] [place] [address] Dark stools Social History Tobacco Use Types [...] Description 08/03/2024 10:45 AM EDT Office Visit [facility] [address] [place] [address] Radha Sánchez MD [address] [place] [address] documented as of this encounter Visit Diagnoses Diagnosis Dark stools Nonspecific abnormal finding in stool contents documented in this encounter Additional Health Concerns Assessment Noted Time PHQ-9 Depression Total Score: 0 07/30/19 24 1:10 PM EDT documented as of this encounter Care Teams Ocean Freight Agent Relationship Specialty Start Date End Date Radha Sánchez MD [address] [place] [phone] PCP - General Family Medicine 11/18/17 documented as of this encounter
--- OUTSIDE RECORDS SUMMARY | 2024-07-14 14:25 | XMS_ITS | Encounter Summary ---
Author Organization [employer] Address [address] [facility] [address] [place] [address] Care Team Providers Care Director Loss Prevention Name Role Phone Radha Sánchez MD Primary Care Provide r Reason for Visit * Reason Comments Leg Pain Encounter Details Date Type Department Care Team ([facility] st Contact Info) Description 07/11/2024 5:00 PM EDT Office Visit [facility] [address] [place] [address] Tasha Espinoza MD [address] [place] [address] Cellulitis of left lower extremity (Primary Dx) Social History Tobacco Use Types Packs/Day Years [...] your housing situation today? I have diane sing 07/30/[address] you li [...] 18 07/11/2024 5:05 PM EDT Oxygen Saturation - - Inhaled Oxygen Concentration - - Weight 63.4 kg (139 lb 12.8 oz) 07/11/2024 5:05 PM EDT Height 157.5 cm (5' 2 ) 07/11/2024 5:05 PM EDT Body Mass Index 25.57 07/11/2024 5:05 PM EDT documented in this encounter Progress Notes * Tasha Espinoza MD - 07/11/2024 5:00 PM EDT Images from the original note were not included. Subjective Patient ID: Alicia Anders is a 59 y.o. female who presents for Leg Pain. Alicia is a 59-year-old female patient of here with complaints of over a rock when she was gardening yesterday. She scraped the anterior past of her left tibia. Denies fever or chills buthas redness and a scrape of her skin. She has a past medical history of allergies. Leg Pain The incident occurred 12 to 24 hours ago. The incident occurred in the yard. The injury mechanism was a fall. The pain is present in the left leg. The pain is at a severity of 2/10. The patient is experiencing no pain. Pertinent negatives include no inability to bear weight, loss of motion, loss ofsensation, muscle weakness, numbness or tingling. She reports no foreign bodies present. Nothing aggravates the symptoms. She has tried nothing for the symptoms. The treatment provided no relief. Review of Systems Skin: Positive for rash and wound. Neurological: Negative for tingling and numbness. Objective BP 132/78 (BP Location: Left arm, Patient Position: Sitting, BP Cuff Size: Adult) Pulse69 Temp 97.6 ??F (36.4 ??C) (Oral) Resp 18 Ht 5' 2 (1.575 m) Wt 139 lb 12.8 oz (63.4 kg) BMI 25.57 kg/m?? Physical Exam Vitals reviewed. Constitutional: General: She is not in acute distress. Appearance: Normal appearance. Cardiovascular: Rate and Rhythm: Normal rate and regular rhythm. Heart sounds: Normal heart sounds. No murmur heard. Pulmonary: Effort: Pulmonary effort is normal. No respiratory distress. Breath sounds: Normal breath sounds. Musculoskeletal: General: No deformity. Right lower leg: No edema. Left lower leg: No edema. Skin: Findings: Lesion and rash present. Comments: Left anterior bailey erythema with scraping of the skin, no drainage noted Neurological: Mental Status: She is oriented to person, place, and time. Mental status is at baseline. Psychiatric: Mood and Affect: Mood normal. Behavior: Behavior normal. Assessment/Plan Diagnoses and all orders for this visit: Cellulitis of left lower extremity Comments: Bacitracin ointment twice daily and Bactrim DS twice daily for 7 to 10 days prescribed. Up with PCPas scheduled.RTC if worsening. Keep area clean and well sanitized. Other orders - bacitracin 500 UNIT/GM ointment; Apply topically 2 times daily. - sulfamethoxazole-trimethoprim (Bactrim DS) 800-160 MG tablet; Take 1 tablet by mouth 2 times daily for 7 days. documented in this encounter Plan of Treatment Upcoming Encounters Date Type Department Care Team (Late st Contact Info) Description 08/03/2024 10:45 AM EDT Office Visit [facility] [address] [place] [address] Radha Sánchez MD [address] [place] [address] documented as of this encounter Visit Diagnoses Diagnosis Cellulitis of left lower extremity- Primary documented in this encounter Additional Health Concerns Assessment Noted Time PHQ-9 Depression Total Score: 0 07/30/19 24 1:10 PM EDT documented as of this encounter Care Teams Director Loss Prevention Relationship Specialty Start Date End Date Radha Sánchez MD [address] [place] [address] PCP - General Family Medicine 11/18/17 documented as of this encounter
== END 2024-07-14 14:13 | disposition home or self-care (01) ==
LOC: HO.HUSH 13:19
PROVIDERS: PCP Internal Medicine; Visit Provider Urology
DX: N32.81 Overactive bladder (principal); R32 Unspecified urinary incontinence; N39.0 Urinary tract infection, site not specified
CPT/HCPCS: 99214

== ENCOUNTER → 2024-07-14 13:19 | Outpatient (BNVA) | payer OTHER, SELFPAY | PROVIDERS: PCP Internal Medicine; Visit Provider Urology | DX: N32.81 Overactive bladder (principal); R32 Unspecified urinary incontinence; N39.0 Urinary tract infection, site not specified | CPT/HCPCS: 99212 ==

== ENCOUNTER 2024-07-16 12:10 | Emergency (ER) | payer OTHER, SELFPAY ==
--- NOTE | ~2024-07-16 | XR_ITS ---
CLINICAL HISTORY: left lower leg wound Radiographs of the left tibia/fibula, 2 views Comparison: None Findings: No fracture or dislocation. No cortical destruction or periostitis to indicate osteomyelitis. No degenerative change. Bone mineralization is normal. Soft tissue swelling. Impression: No radiographic evidence of osteomyelitis. Follow up if symptoms persist or worsen. This document has been electronically signed by: Sandra Preston MD on 07/16/2024 14:03:21
[2024-07-16 12:15] VITALS: BP 126/66; PULSE 85; RESP 18; TEMP 36.7; O2SAT 98; BMI 23.9
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
[2024-07-16 13:16] LABS: MANUAL DIFF FLAG NO
[2024-07-16 13:19] LABS: Basophils Percent Auto 0.5 % (0-2); Eosinophils Absolute Auto 0.7 X10*3/uL (0.0-0.4); Eosinophils Percent Auto 10.4 % (0-4); Hematocrit 37.3 % (37.0-47.0); Hemoglobin 12.7 g/dl (12.0-16.0); Imm Gran Abs Auto 0.01 X10*3/uL (0.00-0.03); Imm Gran Pct Auto 0.2 % (0.0-0.4); Lymphocytes Absolute Auto 0.9 X10*3/uL (1.2-4.9); Lymphocytes Percent Auto 14.4 % (20-40); Mean Corpuscular Hemoglobin 27.1 pg (27.0-33.0); Mean Corpuscular Volume 79.7 fL (80.0-98.0); Mean Platelet Volume 11.1 fL (9.4-12.3); Monocytes Absolute Auto 0.6 X10*3/uL (0.1-1.2); Neutrophils Absolute Auto 4.2 x10*3/uL (2.0-8.3); Neutrophils Percent Auto 65.5 % (45-73); Platelet Count 261 X10*3/uL (160-400); Red Blood Count 4.68 X10*6/uL (4.20-5.50); Red Cell Distribution Width 13.7 % (11.0-16.0); White Blood Count 6.4 X10*3/uL (4.8-10.8)
[2024-07-16 13:30] LABS: Alanine Aminotransferase 30 U/L (0-31); Albumin Level 3.8 g/dL (3.5-5.0); Alkaline Phosphatase 92 U/L (39-117); Anion Gap 13 (12-20); Aspartate Amino Transferase 34 U/L (5-31); Bilirubin Total 0.3 mg/dL (0.0-1.0); Blood Urea Nitrogen 15 mg/dL (9-16); C Reactive Protein 2.86 mg/dL (< or = 0.50); Calcium 8.6 mg/dL (8.4-10.2); Carbon Dioxide 24 mmol/L (22-29); Chloride 107 mmol/L (96-108); Creatinine Clr Calc Pharmacy 52.5; Estimated Glomerular Filt Rate > 60; Glucose Random 90 mg/dL (60-115); Potassium 4.1 mmol/L (3.3-5.1); Sodium 140 mmol/L (135-145); Total Protein 6.7 g/dL (6.5-8.0)
[2024-07-16 14:00] VITALS: BP 133/70; PULSE 73; RESP 16; TEMP 36.9; O2SAT 98
[2024-07-16 14:00] LABS: Erythrocyte Sedimentation Rate 14 MM/HR (0-20)
[2024-07-16 14:19] VITALS: BP 133/70; PULSE 73; RESP 16; TEMP 36.9; O2SAT 98
== END 2024-07-16 14:35 | disposition home or self-care (01) ==
PROVIDERS: Physician Assistant Medical; Emergency Provider Emergency Medicine; PCP Internal Medicine
DX: S80.922A Unspecified superficial injury of left lower leg, initial encounter (principal); X58.XXXA Exposure to other specified factors, initial encounter; Y93.9 Activity, unspecified; Y92.9 Unspecified place or not applicable; Y99.8 Other external cause status; Z79.899 Other long term (current) drug therapy
CPT/HCPCS: 36415; 73590; 80053; 85025; 85652; 86140; 99283; 99284

== ENCOUNTER → 2024-07-16 12:26 | Outpatient (BNV) | payer OTHER, SELFPAY | PROVIDERS: Emergency Provider Emergency Medicine; PCP Internal Medicine; Visit Provider Radiology Diagnostic Radiology | DX: S81.802A Unspecified open wound, left lower leg, initial encounter (principal) | CPT/HCPCS: 73590 ==

== ENCOUNTER 2024-08-03 12:40 | Outpatient (REF) | payer OTHER, SELFPAY ==
--- OUTSIDE RECORDS SUMMARY | 2024-08-03 13:21 | XMS_ITS | Data Portability ---
Author Organization [place] - [facility], [facility] Address [address] [place] [id number] Care Team Providers Care Preschool Paraprofessional Name Role Phone TERENCE TORRES Primary Care Provider Assessment Encounter Date Assessment Date Assessment LastModified [...] Organization Details Recorded Time Abnormal auditory perception 57023158 Active 024 Nataliya martin [place] - [facility] 15:43:40 Abnormal auditory perception 16272886 Active 024 YUNG GAITAN MD [address] [facility], [place], [address] , [facility] - [facility] 17:25:03 Problem Notes None recorded. Procedures Surgical History Date Name Laterality Status Provider Name and Address Organization Details Recorded Time 02/22/20 Comp Audio with Tymps - 63184 & 36639 completed Nataliya Diaz [facility] 02/22/2024 15:43:22 02/22/20 24 OAE distortion product, comprehensive - 64548 completed Nataliya Diaz [facility] 02/22/2024 15:43:28 tractotomy completed Esequiel Jackson [facility] 02/22/2024 14:52:28 procedure on lung completed Esequiel Jackson [facility] 02/22/2024 14:52:42 procedure on head completed Esequiel Jackson [facility] 02/22/2024 14:53:22 Imaging Results None recorded. Procedure Notes None recorded. Medical Equipment None Reported. Allergies Allergen ID Allergen Name Allergen Category Reaction Reaction Severity Criticality Documentation Date Start Date Code Code System Note Provider Name and Address Organization Details Recorded Time 829895 Benadryl medicatio n Not available Not available Not available 02/22/202430302 7 RxNorm Esequiel martin [facility] 14:50:41 195294 house dust allergeni c extract environme nt,medica tion Not available Not available Not available 02/22/2024 35977 9 RxNorm Esequiel martin [facility] 14:50:55 Medications Name Sig Start Date Stop [...] SNOMED-CT Code Diagnosis ICD10 Code Diagnosis Note [id number] YUNG ABREU MD [facility] [address] [id number] 02/22/2024 14:21:12 02/22/2024 15:59:49 Abnormal auditory perception 64260420 H93.293 Audiologic al evaluation results: Right ear: Normal Nor mal through 2 kHz Mild M oderate Mo derately-s evere Elizabeth re Profoun d [place] lly normal hearing with good word recognitio n. Left ear: Normal hearing with good word recognitio n. Tympanomet ry: Right Ear:Type A Left Ear:Type A Distortion Product Otoacousti c Emission Testing Results: [...] Saravia Member ID Guarantor Name 02/22/2024 1 [facility] - DOS ON OR AFTER 2022 - ONE CARE (MEDICARE REPLACEMENT/ADV ANTAGE - HMO) Alicia Anders [id number] Alicia Anders Notes Date Note Type Note [...] Denies vertigo or imbalance YUNG RIVERA MD [address] [place] [address], [place], [phone], [facility] - [facility] 02/22/2024 17:25:24 OBGyn Episode No OBEpisode recorded.
[2024-08-03 13:37] LABS: Estimated Average Glucose 108 mg/dL; Hemoglobin A1c % 5.4 % (<6.0)
[2024-08-03 14:32] LABS: Iron 75 mcg/dL (30-160); Percent Iron Saturation 25 % (15-50); TSH reflex Free T4 2.09 uIU/mL (0.32-4.0); Total Iron Binding Capacity 300 mcg/dL (228-428); Unsaturated Iron Binding 225 ug/dL
[2024-08-03 14:54] LABS: Folate 10.1 ng/mL (> or = 4.0); Vitamin B12 851 pg/mL (200-900)
== END 2024-08-03 12:41 | disposition home or self-care (01) ==
LOC: HO.HHCL 12:40
PROVIDERS: Visit Provider Internal Medicine
DX: Z13.1 Encounter for screening for diabetes mellitus (principal); R53.82 Chronic fatigue, unspecified
CPT/HCPCS: 36415; 82607; 82746; 83036; 83540; 84443

== ENCOUNTER 2024-08-10 09:38 | Outpatient (RCR) | payer OTHER, SELFPAY | END 2024-08-10 16:33 | disposition home or self-care (01) | LOC: HO.WCC 09:38 | PROVIDERS: PCP Internal Medicine; Visit Provider Surgery | DX: S81.812D Laceration without foreign body, left lower leg, subsequent encounter (principal); Z87.891 Personal history of nicotine dependence | CPT/HCPCS: 99213 ==

== ENCOUNTER → 2024-08-12 11:07 | Outpatient (BNVA) | payer OTHER, SELFPAY | PROVIDERS: PCP Internal Medicine; Visit Provider Nurse Practitioner ==

== ENCOUNTER 2024-11-28 12:07 | Outpatient (REF) | payer OTHER, SELFPAY ==
--- OUTSIDE RECORDS SUMMARY | 2024-11-28 17:20 | XMS_ITS | Encounter Summary ---
Author Organization [employer] Address [address] [place] [address] Care Team Providers Care Ticket Printer And Tagger Name Role Phone Radha Sánchez MD Primary Care Provide r Reason for Visit * Reason Comments Leg Pain Encounter Details Date Type Department Care Team ([facility] st Contact Info) Description 11/28/2024 5:20 PM EDT Office Visit [facility] [address] [place] [address] Audra Syed FNP [address] [place] [address] Varicose veins of left lower extremity with pain (Primary Dx); Urinary frequency Social History Tobacco Use Types Packs/Day Years [...] housing situation today? I have diane gwen 08/03/[address] you li ve. Do you have problems with any of the following? None of the above 08/03/2024 Food Insecurity Answer Date Recorded Within the past 12 months, y ou worried that your food would run out before you got money to buy more: Never True 08/03/2024 Within the past 12 months,th e food you bought just didn't last and you didn't have enough money to get more: Never True Transportation Answer Date Recorded In the past 12 months, has l ack of transportation kept you from medical appts, meetings, work or from getting things needed for daily living? No 08/03/2024 Utilities Answer Date Recorded In the past 12 months, has t he electric, gas, oil or water company threatened to shut off services in your home? No 08/03/2024 Depression Answer Date Recorded Patient Health Questionnaire-2 Score 0 08/03/2024 Internet Access Answer Date Recorded Internet Access [...] Sign Reading Time Taken Comments Blood Pressure 127/72 11/28/2024 5:52 PM EDT Pulse 66 11/28/2024 5:52 PM EDT Temperature 36.6 C (97.9 F) 11/28/2024 5:52 PM EDT Respiratory Rate 18 11/28/2024 5:52 PM EDT Oxygen Saturation 99% 11/28/2024 5:52 PM EDT Inhaled Oxygen Concentration - - Weight 62.6 kg (138 lb) 11/28/2024 5:52 PM EDT Height - - Body Mass Index 25.24 08/03/2024 10:49 AM EDT documented in this encounter Progress Notes * Reagan Perez MA - 11/28/2024 5:20 PM EDT * TERRANCE Carrasco - 11/28/2024 5:20 PM EDT Alicia Anders is a 59 y.o. female who presents for a acute visit pain in the back of the left leg x1 week with swelling Reports feet as heavy and tired with dull pain. Describes Legs feel very heavy,especially when walking; unable to walk quickly. Denies burning sensation. Denies nausea, vomit fever or chills. Reports urinary frequency x 2 weeks and started feeling pain today. Problem List[1] Allergies[2] Review of Systems Constitutional: Negative for chills, diaphoresis, fatigue and fever. Respiratory: Negative for apnea, cough, chest tightness, shortness of breath and wheezing. Cardiovascular: Negative for chest pain and palpitations. Gastrointestinal: Negative for abdominal pain, blood in stool, constipation, diarrhea, nausea and vomiting. Musculoskeletal: Left leg pain Skin: Negative for pallor. Neurological: Negative for dizziness, weakness, light-headedness and headaches. Vitals: 11/28/24 1752 BP: 127/72 BP Location: Right arm Patient Position: Sitting BP Cuff Size: Adult Pulse: 66 Resp: 18 Temp: 97.9 ??F (36.6 ??C) TempSrc: Temporal SpO2: 99% Weight: 138 lb (62.6 kg) POCT urinalysis Component Ref Range & Units (hover) 18:42 (11/28/24) Color, UA Yellow Clarity, UA Clear Glucose, UA Negative Bilirubin, UA Negative Ketones, UA Negative Spec Grav, UA 1.020 Blood, UA Negative pH, UA 6.0 Protein, UA Negative Urobilinogen, UA 0.2 Leukocytes, UA Trace Nitrite, UA Negative Physical Exam Vitals reviewed. Constitutional: Appearance: Normal appearance. HENT: Head: Atraumatic. Cardiovascular: Rate and Rhythm: Normal rate and regular rhythm. Pulses: Normal pulses. Heart sounds: Normal heart sounds. No murmur heard. Pulmonary: Effort: Pulmonary effort is normal. Breath sounds: Normal breath sounds. No wheezing. Skin: Comments: Dilated veins at the back of the left leg running up the back of the knee Bilat lower extremities with mild discoloration Neurological: Mental Status: She is alert and oriented to person, place, and time. Psychiatric: Mood and Affect: Mood normal. Behavior: Behavior normal. Visit Diagnoses Varicose veins of left lower extremity with pain - Primary Dilated veins at the back of the left leg running up the back of the knee Bilat lower extremities with mild discoloration No redness , no warmth, no ulceration, no edema Left left mild swollen No recent travel, surgery or trauma Vital signs WINL Probable etiology Varicose vein and early stage of venous insufficiency. Recommended daily use of compression stockings during the day and removal at night. Advised follow-up with PCP to assess improvement. If symptoms persist, referral to vascular specialist suggested. Instructed to contact primary care provider regarding varicose vein management. Urinary frequency Reports increased urination for approximately 3 weeks prior to visit. Onset of pain during urination today 11/28/24 Denies blood in urine, Denies abnormal urine odor, Denies vaginal discharge Ordered urinalysis to evaluate for possible urinary tract infection or other causes. 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 Seizure disorder (CMS/HCC) Sickle cell trait (CMS/HCC) Traumatic enucleation of eye Vitamin D deficiency Multiple food allergies Gastroesophageal reflux disease without esophagitis Bilateral tinnitus Colon cancer screening Chronic pain of both knees Chronic nonintractable headache Dizziness Unstable gait Varicose veins of left lower extremity with pain [2] Allergies Allergen Reactions Apple Flavoring Agent (Non-Screening) Benadryl [Diphenhydramine] Dust Mite Extract Peanut Butter Flavoring Agent (Non-Screening) Pollinex-T [Modified Tree Tyrosine Adsorbate] Watermelon Flavoring Agent (Non-Screening) [3] Current Outpatient Medications: acetaminophen (Tylenol) 325 MG capsule, Take 2 capsules (650 mg) by mouth every 6 (six) hours if needed for mild pain., Disp: 120 capsule, Rfl: 1 acetaminophen (Tylenol) 325 MG tablet, TAKE 2 TABLETS BY MOUTH EVERY 6 HOURS NEEDED, Disp: , Rfl: bacitracin 500 UNIT/GM ointment, Apply topically 2 times daily., Disp: 14 g, Rfl: 0 cholecalciferol (Vitamin D3) 25 MCG (1000 UT) tablet, TAKE 1 TABLET BY MOUTH EVERY DAY, Disp: 90 tablet, Rfl: 1 ciclopirox (Loprox) 0.77 % suspension, Apply topically every 12 (twelve) hours., Disp: , Rfl: Diclofenac Sodium 1 % gel, APPLY 2 GRAMS TO THE AFFECTED AREA 2-3 TIMES DAILY TOPICALLY, Disp: , Rfl: estradiol (Estrace) 0.1 MG/GM vaginal cream, insert (2G) daily for 2 weeks then (1G) daily for 2 weeks then (1G) weekly, Disp: , Rfl: famotidine (Pepcid) 20 MG tablet, Take 1 tablet (20 mg) by mouth at bedtime. TAKE 1 TABLET (20 MG) BY MOUTH IF NEEDED AT BEDTIME FOR HEARTBURN, Disp: 90 tablet, Rfl: 1 fluticasone (Flonase) 50 MCG/ACT nasal spray, SHAKE GENTLY. USE 1 TO 2 SPRAYS IN EACH NOSTRIL EACH MORNING. CLEAN TIP AFTER USE., Disp: 48 mL, Rfl: 0 hydrocortisone 2.5 % cream, Apply pea sized amount to skin bid for 1 week, Disp: 15 g, Rfl: 0 Lactobacillus (Culturelle Advanced Regularity) capsule, Take 1 capsule by mouth Once per day., Disp: 90 capsule, Rfl: 0 loratadine (Claritin) 10 MG tablet, TAKE 1 TABLET BY MOUTH EVERY DAY, Disp: 90 tablet, Rfl: 0 Myrbetriq 25 MG 24 hr tablet, Take 25 mg by mouth in the morning., Disp: , Rfl: nortriptyline (Pamelor) 10 MG capsule, Take 1 capsule (10 mg) by mouth at bedtime., Disp: 30 capsule, Rfl: 11 Probiotic Product (Up4 Probiotics Womens) capsule, TOME 1 CAPSULA POR VIA ORAL [place], Disp: 30 capsule, Rfl: 2 Probiotic, Lactobacillus, capsule, Take 1 capsule by mouth Once per day., Disp: 90 capsule, Rfl: 0 terbinafine (LamISIL AT) 1 % cream, Apply topically 2 times daily., Disp: 42 g, Rfl: 1 topiramate (Topamax) 25 MG tablet, Take 25 mg by mouth if needed each day., Disp: , Rfl: documented in this encounter Plan of Treatment Upcoming Encounters Date Type Department Care Team (Late st Contact Info) Description 02/09/2025 9:00 AM EST Office Visit [facility] MED[facility]INE [address] [place] [phone] Radha Sánchez MD [address] [place] [address] Scheduled Orders Name Type Priority Associated Diagnoses Orde r Schedule Culture, Urine, Routine Microbiology Routine Urinary frequency Ordered: 11/28/2024 documented as of this encounter Procedures Procedure Name Priority Date/Time Associated Diagnosis Comments POCT URINALYSIS DIPSTICK Routine 11/28/2024 6:42 PM EDT Urinary frequency documented in this encounter Results * POCT urinalysis dipstick manually resulted (11/28/2024 6:42 PM EDT) Color, UA Yellow Clarity, UA Clear Glucose, UA Negative Bilirubin, UA Negative Ketones, UA Negative Spec Grav, UA 1.020 Blood, UA Negative Negative, None Detected pH, UA 6.0 Protein, UA Negative Urobilinogen, UA 0.2 Leukocytes, UA Trace Negative, Rare, Trace Nitrite, UA Negative Negative, None Detected QC Media Lot # OK Urine 11/28/2024 6:42 PM EDT Audra Okhipo HAND SAMPLE MAKER POINT OF CARE TEST ENTER/EDIT ORDERABLES Final Result documented in this encounter Visit Diagnoses Diagnosis Varicose veins of left lower extremity with pain- Primary Urinary frequency documented in this encounter Additional Health Concerns Assessment Noted Time PHQ-9 Depression Total Score: 0 07/30/19 24 1:10 PM EDT documented as of this encounter Care Teams Ticket Printer And Tagger Relationship Specialty Start Date End Date Radha Sánchez MD [address] [place] [id number] PCP - General Family Medicine 11/18/17 documented as of this encounter
--- OUTSIDE RECORDS SUMMARY | 2024-11-29 15:01 | XMS_ITS | Encounter Summary ---
Author Organization [employer] Address [address] [facility] [address] [place] [address] Care Team Providers Care Zipper Ironer Name Role Phone Radha Sánchez MD Primary Care Provide r Reason for Visit * Reason Comments Med Change Request Encounter Details Date Type Department Care Team ([facility] Contact Info) Description 09/14/2024 Refill [facility] [address] [place], [place] [phone] Radha Sánchez MD [address] [place] [address] Gastroesophageal reflux disease without esophagitis Social History Tobacco Use Types Packs/Day Years [...] housing situation today? I have diane hidalgo 08/03/[address] you li [...] Description 02/09/2025 9:00 AM EST Office Visit [facility] [address] [place] [address] Radha Sánchez MD [address] [place] [address] documented as of this encounter Visit Diagnoses Diagnosis Gastroesophageal reflux disease without esophagitis Esophageal reflux documented in this encounter Additional Health Concerns Assessment Noted Time PHQ-9 Depression Total Score: 0 07/30/19 24 1:10 PM EDT documented as of this encounter Care Teams Zipper Ironer Relationship Specialty Start Date End Date Radha Sánchez MD [address] [place] [id number] PCP - General Family Medicine 11/18/17 documented as of this encounter
--- OUTSIDE RECORDS SUMMARY | 2024-11-29 15:01 | XMS_ITS | Encounter Summary ---
Author Organization [employer] Address [address] [place] [address] Care Team Providers Care Demand Generator Manager Name Role Phone Radha Sánchez MD Primary Care Provide r Encounter Details Date Type Department Care Team (Late st Contact Info) Description 12/17/2022 Abstract [facility] [address] [place] [address] Radha Sánchez MD [address] [place], [place] [phone] Social History Tobacco Use Types Packs/Day Years Used Date Smoking Tobacco: Former Cigarettes Passive Smoke Exposure: Past Smokeless Tobacco: Never Alcohol Use Standard Drinks/Week Comments Never 0 (1 standard drink = 0.6 oz pur e alcohol) Housing Stability Answer Date Recorded What is your housing situation today? I have diane hidalgo 12/13/[address] you [...] Description 02/09/2025 9:00 AM EST Office Visit [facility] [address] [place] [address] Radha Sánchez MD [address] [place] [phone] documented as of this encounter Visit Diagnoses Not on filedocumented in this encounter Care Teams Demand Generator Manager Relationship Specialty Start Date End Date Radha Sánchez MD [address] [place] [phone] PCP - General Family Medicine 11/18/17 documented as of this encounter
--- OUTSIDE RECORDS SUMMARY | 2024-11-29 15:01 | XMS_ITS | Encounter Summary ---
Author Organization [employer] Address [address] [facility] [address] [place] [address] Care Team Providers Care Weatherization And Housing Inspector Name Role Phone Radha Sánchez MD Primary Care Provide r Reason for Visit * Reason Onset Date Comments Appointment 04/21/2022 Encounter Details Date Type Department Care Team ([facility] Contact Info) Description 04/21/2022 Telephone [facility] [address] [place] [address] Radha Sánchez MD [address] [place] [address] Appointment Social History Tobacco Use Types Packs/Day [...] is on [employer]. Please contact pt at [phone] documented in this encounter Plan of Treatment Upcoming Encounters Date Type Department Care Team (Late st Contact Info) Description 02/09/2025 9:00 AM EST Office Visit [facility] MED[facility] [address] [place] [address] Radha Sánchez MD [address] [place] [address] documented as of this encounter Visit Diagnoses Not on filedocumented in this encounter Care Teams Weatherization And Housing Inspector Relationship Specialty Start Date End Date Radha Sánchez MD [address] [place] [id number] PCP - General Family Medicine 11/18/17 documented as of this encounter
--- OUTSIDE RECORDS SUMMARY | 2024-11-29 15:01 | XMS_ITS | Clinical Summary ---
Author Organization [employer] Address [address] [place] [address] [address] [place] [address] Care Team Providers Care Ultrasound Spec Name Role Phone Radha Sánchez MD Primary [...] day. 2 Active nortriptyline (Pamelor) 10 MG capsuleIndicatio ns:Polymyalgia (CMS/HCC) Take 1 capsule (10 mg) by mouth at bedtime. 30 capsule 11 3 Active hydrocortisone 2.5 % cream Apply pea sized amount to skin bid for 1 week 15 g 4 Active acetaminophen (Tylenol) 325 MG capsuleIndicatio ns:Sore throat Take 2 capsules (650 mg) by mouth every 6 (six) hours if needed for mild pain. 120 capsule 1 4 Active famotidine (Pepcid) 20 MG tabletIndication s:Dark stools Take 1 tablet (20 mg) by mouth at bedtime. TAKE 1 TABLET (20 MG) BY MOUTH IF NEEDED AT BEDTIME FOR HEARTBURN 90 tablet 1 4 Active fluticasone (Flonase) 50 MCG/ACT nasal sprayIndications :Left otitis media with effusion SHAKE GENTLY. USE 1 TO 2 SPRAYS IN EACH NOSTRIL EACH MORNING. CLEAN TIP AFTER USE. 48 mL 5 Active terbinafine (LamISIL AT) 1 % creamIndications :Tinea cruris Apply topically 2 times daily. 42 g 1 5 Active bacitracin 500 UNIT/GM ointment Apply topically 2 times daily. 14 g 5 Active loratadine (Claritin) 10 MG tabletIndication s:Pruritus TAKE 1 TABLET BY MOUTH EVERY DAY 90 tablet 5 Active Probiotic Product (Up4 Probiotics Womens) capsuleIndicatio ns:Gastroesophag eal reflux disease without esophagitis TOME 1 CAPSULA POR VIA ORAL TODOS [place] 30 capsule 2 5 Active Probiotic, Lactobacillus, capsuleIndicatio ns:Gastroesophag eal reflux disease without esophagitis Take 1 capsule by mouth Once per day. 90 capsule 5 Active Lactobacillus (Culturelle Advanced Regularity) capsuleIndicatio ns:Gastroesophag eal reflux disease without esophagitis,Epig astric pain Take 1 capsule by mouth Once per day. 90 capsule 5 Active cholecalciferol (Vitamin D3) 25 MCG (1000 UT) tabletIndication s:Vitamin D deficiency TAKE 1 TABLET BY MOUTH EVERY DAY 90 tablet 1 5 Active Active Problems Problem Noted Date Diagnosed Date Varicose veins of left lower extremity with pain 11/28/2024 Unstable gait 08/03/2024 Assessment & Plan (08/03/2024 1:58 PM EDT): I refer her to physical therapy Dizziness 07/20/2024 Assessment & Plan (07/20/2024 4:33 PM EDT): No evidence of hypoglycemia or significant anemia, it is probably related to side effects from Bactrim which she has been taking for cellulitis on LLE. Reassurance, increase hydration, rest and complete antibiotics x 1 more day Chronic nonintractable headache 10/08/2023 Assessment & Plan (10/08/2023 11:25 AM EDT): Maintain hydration I advise to avoid triggers like red wine, chocolate, cheese, strong perfumes C/w fioricept PRN Chronic pain of both knees 07/30/2023 Assessment [...] for further evaluation Colon cancer screening 03/11/2023 Multiple food allergies 07/28/2022 Gastroesophageal reflux disease without esophagi tis 07/28/2022 Assessment & Plan (08/03/2024 1:58 PM EDT): I advise patient to avoid NSAIDs, spicy and acid food, I advise to eat at the same time every day, I advise to elevate the head of the bed and take medications as prescribe Assessment & Plan (10/08/2023 11:26 AM EDT): [...] as prescribe Chronic low back pain 05/19/2022 Polymyalgia 04/07/2022 Assessment & Plan (07/28/2022 [...] night for sleep and pain Fatigue 04/07/2022 Assessment & Plan (08/03/2024 1:58 PM EDT): Labs ordered today patient will be contacted with results Vitamin D deficiency 03/16/2017 Seizure disorder 05/26/2016 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 Continue keeping the lesion clean and dry with soap and water, can apply topical antibiotic and reconsult as needed fever, erythema or discharge out of the lesion. She will get Td booster today Dark stools 11/26/2023 08/03/2024 Assessment & Plan (11/26/2023 7:51 PM EDT): [...] -advised to avoid NSAIDS Epigastric pain 11/26/2023 08/03/2024 Cervical cancer screening 10/21/2023 Assessment & Plan (10/21/2023 4:10 PM EDT): PAP smear and pelvic exam done patient will be contacted with results Acute tension headache 10/08/202308/03 Bug bite 10/07/2023 08/03/2024 Assessment & Plan (10/07/2023 4:04 PM EDT): No evidence of super infection. Advise hydrocortisone cream, ice. Advise seek medical attention for pain, increase in size or redness, tracking or fever. She agrees with the plan. Decreased hearing of left ear 07/30/2023 08/03/2024 Encounter for preventive health examination 07/30/2023 08/03/2024 Assessment & Plan (07/30/2023 1:50 PM EDT): See HPI Acute otitis media 12/05/2022 Encounter for physical examination 07/28/2022 08/03/2024 Assessment & Plan (07/28/2022 11:22 AM EDT): Please refer to HPI Heartburn 05/19/2022 08/03/2024 Increased frequency of urination 05/19/2022 08/03/2024 Encounters Date Type Department Care Team Description 11/28/2024 5:20 PM EDT Office Visit [facility] [address] [address] Okhipo, Audra, ASSISTANT CLINICAL DIRECTOR Varicose veins of left lower extremity with pain (Primary Dx); Urinary frequency 11/17/2024 Telephone [facility] [address] [place] [address] Radha Sánchez MD NOV RECALL 11/09/2024 Telephone [facility] [address] [place] [address] Radha Sánchez MD Appointment Request 10/24/2024 Telephone [facility] [address] [place] [address] Radha Sánchez MD Appointment Request 09/23/2024 Refill [facility] [address] [place] [address] Radha Sánchez MD Vitamin D deficiency 09/15/2024 Orders Only [facility] [address] [place] [address] Radha Sánchez MD Gastroesophageal reflux disease without esophagitis (Primary Dx); Epigastric pain 09/14/2024 Refill [facility] [address] [place] [address] Radha Sánchez MD Gastroesophageal reflux disease without esophagitis 09/07/2024 Orders Only [facility] [address] [place] [address] Radha Sánchez MD Gastroesophageal reflux disease without esophagitis (Primary Dx) 09/07/2024 Telephone [facility] [address] [place] [address] Radha Sácnhez MD Med Refill 09/07/2024 Refill [facility] [address] [place] [address] Radha Sánchez MD Gastroesophageal reflux disease without esophagitis 09/06/2024 Refill [facility] [address] [place] [address] Radha Sánchez MD Gastroesophageal reflux disease without esophagitis 08/29/2024 Refill [facility] [address] [place] [address] Radha Sánchez MD Gastroesophageal reflux disease without esophagitis from Last 3 Months Immunizations Immunization Administration Dates Next Due Influenza Injectable Quadriv alant Preservative Free IIV4 MDCK 03/18/2021 Influenza injectable quadrivalent preservative f ree 11/18/2021,03/06/2020 Influenza, IIV3, injectable 01/19/1997 Influenza, seasonal, injectable, preservative fr ee 12/07/2023 Pneumococcal Conjugate PCV 20 08/03/2024 RSV Bivalent 04/03/2023 TD (adult), 2 Lf tetanus tox oid, preservative free, adsorbed 09/06/2009 Tdap 07/20/2024,01/18/2020 Zoster, Recombinant 05/07/2020,03/06/2020 Social History Tobacco Use [...] (138 lb) 11/28/2024 5:52 PM EDT Height 157.5 cm (5' 2 ) 08/03/2024 10:49 AM EDT Body Mass Index 25.24 08/03/2024 10:49 AM EDT Plan of Treatment Upcoming Encounters Date Type Department Care Team (Late st Contact Info) Description 02/09/2025 9:00 AM EST Office Visit [facility] [address] [place] [address] Radha Sánchez MD [address] [place] [address] Health Maintenance Due Date Last Done Comments CT Colonography 1965 FIT DNA/Cologuard 1965 FIT 1965 FOBT 1965 Sigmoidoscopy 1965 COVID-19 Vaccine ( season) 2024 Influenza Vaccine (#1) 2024 , 11/18/2021, 03/18/2021, Additional history exists Mammogram 03/18/2025 03/18/2024, 02/07, 02/27/2022, Additional history exists Alcohol/Substance Use Screening 08/03/2025 08/03/2024 Depression Screening 08/03/2025 08/03/2024, 07/30/19 Disability Screening 08/03/2025 08/03/2024 SDOH Screening 08/03/2025 08/03/2024 Tobacco Screening 11/28/2025 11/28/2024 Cervical Cancer Screening 10/20/2028 HPV/Cotest 10/20/2028 10/21/2023 Pap Smear 10/20/2028 10/21/2023, 07/23/2020 Colonoscopy 07/08/2033 07/09/2023 Colorectal Cancer Screening 07/08/2033 DTaP/Tdap/Td Vaccines (3 - Td or Tdap) 07/20/2034 07/20/2024, 01/18/2020, 09/06/2009 HIV Screening Completed 11/01/2019 Zoster Vaccines Completed 05/07/2020, 03/06/2020 RSV Patients and Patients Aged 60 years or older Completed 04/03/2023 Hepatitis C Screening Completed 07/31/2023 Pneumococcal Vaccine: 50+ Years Completed 08/03/2024 HIB Vaccines Aged Out No longer eligi [...] patient's age to complete this topic Meningococcal B Vaccine Aged Out No l onger eligible based on patient's age to complete [...] Routine 11/28/2024 6:42 PM EDT Urinary frequency BI MAMMOGRAM SCREENING TOMOSYNTHESIS BILATERAL Routine 03/18/2024 [...] Relevant to Health Maintenance Results * POCT urinalysis dipstick manually resulted [...] Urine 11/28/2024 6:42 PM EDT Audra Okhipo ASSISTANT CLINICAL DIRECTOR POINT OF CARE TEST ENTER/EDIT ORDERABLES Final Result * BI Mammogram Screening Tomosynthesis Bilateral (03/18/2024 11:15 AM EST) Anatomical Region Laterality Modality Breast Bilateral Mammography 03/18/2024 11:1 5 AM EST Narrative 03/25/2024 4:09 PM EST [facility] [address] [place] [address] Mammography Report Signed Patient: Alicia Anders MR#: [id number] 3 : 1965 Acct:[id number] Age/Sex: 58 / F ADM Date: 03/18/24 Loc: [facility] Attending Dr: Radha Frias MD Ordering Physician: Radha Sánchez MD Results: 1Negative Date of Service: 03/18/24 Follow Up: 1 Year From Orig inal Mammogram Procedure(s): MM tomosynthesis screening BI Accession Number(s): [id number] cc: Radha Sánchez MD EXAMINATION: MM SCREENING [...] by: Rachel Ram DO 03/25/2024 04:06 PM [facility] Dictated By: Rachel Ram DO Signed By: <Electronically signed by Rachel Ram DO in OV> 03/25/24 1606 DD/ 1115 TD/TT: 03/18/24 1144 Editorial Manager: Procedure Note Donotuseinterpreter, Image - 03/25/2024 [facility] [address] [place] [address] Mammography Report Signed Patient: Nesha AndersR#: [id number] 3 : 1965Acct:[id number] Age/Sex: 58 / FADM Date: 03/18/24 Loc: [facility] Attending Dr: Radha Frias MD Ordering Physician: Radha Sánchez MDResults: 1Negative Date of Service: 03/18/24Follow Up: 1 Year From Orig inal Mammogram Procedure(s): MM tomosynthesis screening BI Accession Number(s): [id number] cc: Radha Sánchez MD EXAMINATION: MM SCREENING [...] by: Rachel Ram DO 03/25/2024 04:06 PM [facility] Dictated By: Rachel Ram DO Signed By: <Electronically signed by Rachel Ram DO in OV> 03/25/24 1606 DD/ 1115 TD/TT: 03/18/24 1144 Editorial Manager: Radha Frias MD IMG BI PROCEDURES Michelet kiara Result - Final * [facility] Imaging Pap and HPV mRNA E6/E7 (10/21/2023 12:00 AM EDT) HPV nRNA E6/E7 Not Detected Not Detected [facility] Comment:Methodology: Transcr iption-Mediated AmplificationThis assay detects E6/E7 viral messenger RNA (mRNA) from 14high-risk HPV types (16,18,31,33,35,39,45,51,52,56,58,59,66,68).Cervical sources are required for HPV testing.If a vaginal source from a patient who has had atotal hysterectomy with removal of cervix wassubmitted, please contact the testing laboratoryfor alternative testing options.For additional information, please refer tohttp://education.Knowrom/faq/TRZ114k7(This link if provided for information/educational purposes only.)THIS TEST WAS PERFORMED AT:[employer] [address] [id number] VILLANUEVA MD SOURCE: SEE NOTE [facility] Comment:None given Report Status: [facility] Clinical Information: SEE NOTE [facility] Comment:None given LMP: SEE NOTE [facility] Comment:NONE GIVEN Prev. PAP: SEE NOTE [facility] Comment:NONE GIVEN Prev. BX: SEE NOTE [facility] Comment:NONE GIVEN Statement Of Adequacy: SEE NOTE [facility] Comment:Satisfactory for kenny luation.Endocervical/transformation zone componentpresent.Partially obscuring inflammationPartially obscuring blood General Categorization: [facility] Interpretation/Result: SEE NOTE [facility] Comment:Cytology Results: Ne gative for intraepitheliallesion or malignancy. Cytology Comment SEE NOTE [facility] Comment:This Pap test has be en evaluated with computerassisted technology. Outpatient Coding Specialist: SEE NOTE [facility] Comment:RPR, CT (ASCP) CT sc reening location: [address] [address] Review Outpatient Coding Specialist: [facility] Pathologist [facility] PAP Infection [facility] See Note SEE NOTE [facility] Comment:EXPLANATORY NOTE:The Pap is a screening test for cervical cancer. It isnot a diagnostic test and is subject to false negativeand false positive results. It is most reliable when asatisfactory sample, regularly obtained, is submittedwith relevant clinical findings and history, and whenthe Pap result is evaluated along with historic andcurrent clinical information. 10/21/2023 10/21/2023 Narrative [facility] - 10/26/2023 10:54 AM EDT SEE SCANNED RESULTS IN EMR us Radha Frias MD LAB PATHOLOGY ORDERAB LES Final Result [facility] [address] [place] [address] [phone] * Hepatitis C Antibody with Reflex to HCV, RNA, Quantitative, Real-Time PCR (07/31/2023 2:06 PM EDT) Hepatitis C Antibody Nonreactive Nonreactive [facility] Comment:Antibodies to HCV no t detected; does not exclude early acuteHCV infection. Blood Venous blood specimen / Unknown 07/31/2023 2:06 PM EDT 07/31/2023 4:03 PM EDT us Radha Frias MD LAB BLOOD ORDERABLES Final Result [facility] [address] [place] [address] [phone] * Hm Colonoscopy (07/09/2023 9:36 AM EDT) Colonoscopy Normal Normal Narrative Carrie Jean - 07/09/2023 9:36 AM EDT Repeat colonoscopy in 10 years see external hospital admission note on 07/09/2023 Historical Provider HEALTH MAINTENANCE Edited Result - Final * HIV 1/2 ANTIGEN/ANTIBODY,FOURTH GENERATION W/RFL (11/01/2019 10:52 AM EDT) HIV-1/2 ANTIGEN AND ANTIBODIES, 4TH GENERATION W/ REFLEX NON-REACT YELENA NON-REACT YELENA [facility] Comment: HIV-1 antigen and HIV-1/HIV-2 antibodies were not detected. There is no laboratory evidence of HIV infection. PLEASE NOTE: This information has been disclosed to you from records whose confidentiality may be protected by state law. If your state requires such protection, then the state law prohibits you from making any further disclosure of the information without the specific written consent of the person to whom it pertains, or as otherwise permitted by law. A general authorization for the release of medical or other information is NOT sufficient for this purpose. For additional information please refer to http://education.[employer].IKO System/faq/QNB134 (This link is being provided for informational/ educational purposes only.) The performance of this assay has not been clinically validated in patients less than 2 years old. 11/01/2019 10:5 2 AM EDT Radha Frias MD LAB BLOOD ORDERABLES Final Result [facility] [address] from Last 3 Months or Most Recently Relevant to Health Maintenance Insurance [facility] 65 Care Teams Ultrasound Spec Relationship Specialty Start Date End Date Radha Sánchez MD [address] [place] [address] PCP - General Family Medicine 11/18/17
--- OUTSIDE RECORDS SUMMARY | 2024-11-29 15:01 | XMS_ITS | Encounter Summary ---
Author Organization [employer] Address [address] [place] [address] Care Team Providers Care Plant Culture Manager Name Role Phone Radha Sánchez MD Primary Care Provide r Encounter Details Date Type Department Care Team (Late st Contact Info) Description 06/07/2024 Orders Only [facility] [address] [place], [place] [phone] ProviderTherese MD Social History Tobacco Use Types [...] housing situation today? I have dianejalil hidalgo 07/30/[address] you [...] Description 02/09/2025 9:00 AM EST Office Visit [facility] [address] [place] [address] Radha Sánchez MD [address] [place] [address] documented as of this encounter Procedures Procedure [...] documented as of this encounter Care Teams Plant Culture Manager Relationship Specialty Start Date End Date Radha Sánchez MD [address] [place] [phone] PCP - General Family Medicine 11/18/17 documented as of this encounter
--- OUTSIDE RECORDS SUMMARY | 2024-11-29 15:01 | XMS_ITS | Encounter Summary ---
Author Organization [employer] Address [address] [facility] [address] [place] [address] Care Team Providers Care Wash Box Operator Name Role Phone Radha Sánchez MD Primary Care Provide r Reason for Visit * Reason Comments Med Change Request Encounter Details Date Type Department Care Team ([facility] Contact Info) Description 12/31/2023 Refill [facility] [address] [place] [address] Radha Bhatia MD [address] [place] [address] Dark stools Social History Tobacco Use Types [...] Description 02/09/2025 9:00 AM EST Office Visit [facility] [address] [place] [address] Radha Sánchez MD [address] [place] [address] documented as of this encounter Visit Diagnoses Diagnosis Dark stools Nonspecific abnormal finding in stool contents documented in this encounter Additional Health Concerns Assessment Noted Time PHQ-9 Depression Total Score: 0 07/30/19 24 1:10 PM EDT documented as of this encounter Care Teams Wash Box Operator Relationship Specialty Start Date End Date Radha Sánchez MD [address] [place] [id number] PCP - General Family Medicine 11/18/17 documented as of this encounter
== END 2024-11-28 12:08 | disposition home or self-care (01) ==
LOC: HO.HHCLNP 12:07
PROVIDERS: Visit Provider Nurse Practitioner Family
DX: R10.2 Pelvic and perineal pain (principal)
CPT/HCPCS: 87086

== ENCOUNTER 2024-11-29 15:02 | Outpatient (REF) | payer OTHER, SELFPAY ==
[2024-11-29 16:50] LABS: Alanine Aminotransferase 15 U/L (0-31); Albumin Level 4.3 g/dL (3.5-5.0); Alkaline Phosphatase 88 U/L (39-117); Anion Gap 10 (12-20); Aspartate Amino Transferase 26 U/L (5-31); Blood Urea Nitrogen 13 mg/dL (9-16); Calcium 9.2 mg/dL (8.4-10.2); Carbon Dioxide 29 mmol/L (22-29); Chloride 108 mmol/L (96-108); Estimated Glomerular Filt Rate > 60; Potassium 4.2 mmol/L (3.3-5.1); Sodium 143 mmol/L (135-145); Total Protein 7.3 g/dL (6.5-8.0)
== END 2024-11-29 15:03 | disposition home or self-care (01) ==
LOC: HO.HHCL 15:02
PROVIDERS: PCP Internal Medicine; Visit Provider Internal Medicine Geriatric Medicine
DX: N39.0 Urinary tract infection, site not specified (principal); L29.9 Pruritus, unspecified
CPT/HCPCS: 36415; 80053